=== PATIENT | female | born 1940 | race Caucasian/White ===

== ENCOUNTER → 2017-12-24 15:35 | Outpatient (CLI) | payer MEDICARE, SELFPAY ==
[2017-12-24 15:57] LABS: Absolute Basophil Count 0.01 k/cumm (0.0-0.2); Absolute Eosinophil Count 0.04 k/cumm (0.0-0.7); Absolute Lymphocyte Count 1.45 k/cumm (1.2-3.4); Absolute Monocyte Count 0.61 k/cumm (0.11-0.7); Absolute Neutrophil Count 1.46 k/cumm (1.2-6.7); Basophils % 0.3; Eosinophils % 1.1; HCT 37.6 % (36.0-46.0); HGB 12.5 g/dL (12.0-15.5); Lymphocytes % 40.6; Mean Corp. HGB Concentration 33.2 g/dL (32.0-36.0); Mean Corpuscular Hemoglobin 29.3 pg (27.0-33.0); Mean Corpuscular Volume 88.3 fL (80-95); Mean Platelet Volume 8.5 fL (8.0-11.0); Monocytes % 17.1; Neutrophils % 40.9; Platelet Count 268 x1000/uL (130-400); RBC 4.26 m/cumm (4.00-5.20); RBC Distribution Width 13.5 % (11.7-14.6); White Blood Cell Count 3.57 k/cumm (4.4-10.8)
== END ==
PROVIDERS: PCP Family Medicine; Visit Provider Internal Medicine Hematology & Oncology
DX: D70.9 Neutropenia, unspecified (principal)
CPT/HCPCS: 36415; 85025

== ENCOUNTER 2018-03-19 13:40 | Outpatient (CLI) | payer MEDICARE, SELFPAY ==
[2018-03-19 14:13] LABS: HCT 38.8 % (36.0-46.0); HGB 12.7 g/dL (12.0-15.5); Mean Corp. HGB Concentration 32.7 g/dL (32.0-36.0); Mean Corpuscular Hemoglobin 29.2 pg (27.0-33.0); Mean Corpuscular Volume 89.2 fL (80-95); Mean Platelet Volume 8.4 fL (8.0-11.0); Platelet Count 233 x1000/uL (130-400); RBC 4.35 m/cumm (4.00-5.20); RBC Distribution Width 14.7 % (11.7-14.6); White Blood Cell Count 4.12 k/cumm (4.4-10.8)
[2018-03-19 14:53] LABS: Absolute Eosinophil Count 0.04 k/cumm (0.0-0.7); Absolute Lymphocyte Count 3.34 k/cumm (1.2-3.4); Absolute Monocyte Count 0.45 k/cumm (0.11-0.7); Atypical Lymphocytes % 6
[2018-03-19 14:54] LABS: Diff Comment Manual Differential; RBC Morphology Normal
[2018-03-19 14:58] LABS: Absolute Neutrophil Count 0.29 k/cumm (1.2-6.7)
== END 2018-03-19 14:00 ==
PROVIDERS: PCP Family Medicine; Visit Provider Internal Medicine Hematology & Oncology
DX: D70.9 Neutropenia, unspecified (principal)
CPT/HCPCS: 36415; 85025

== ENCOUNTER 2018-05-15 12:09 | Outpatient (CLI) | payer MEDICARE, SELFPAY ==
[2018-05-15 12:32] LABS: HCT 40.3 % (36.0-46.0); HGB 13.2 g/dL (12.0-15.5); Mean Corp. HGB Concentration 32.8 g/dL (32.0-36.0); Mean Corpuscular Hemoglobin 29.1 pg (27.0-33.0); Mean Corpuscular Volume 88.8 fL (80-95); Mean Platelet Volume 8.4 fL (8.0-11.0); Platelet Count 265 x1000/uL (130-400); RBC 4.54 m/cumm (4.00-5.20); RBC Distribution Width 14.6 % (11.7-14.6); White Blood Cell Count 2.98 k/cumm (4.4-10.8)
[2018-05-15 13:03] LABS: Absolute Basophil Count 0.06 k/cumm (0.0-0.2); Absolute Eosinophil Count 0.09 k/cumm (0.0-0.7); Absolute Lymphocyte Count 2.41 k/cumm (1.2-3.4); Absolute Monocyte Count 0.33 k/cumm (0.11-0.7); Atypical Lymphocytes % 25
[2018-05-15 13:04] LABS: Diff Comment Manual Differential; RBC Morphology Normal
[2018-05-15 13:08] LABS: Absolute Neutrophil Count 0.09 k/cumm (1.2-6.7)
[2018-05-16 13:04] LABS: CEA <0.5 ng/ml
== END 2018-05-15 12:29 ==
PROVIDERS: Internal Medicine Hematology & Oncology; PCP Family Medicine; Visit Provider Family Medicine
DX: D70.9 Neutropenia, unspecified (principal); C18.9 Malignant neoplasm of colon, unspecified
CPT/HCPCS: 36415; 82378; 85025

== ENCOUNTER 2018-09-08 00:28 | Outpatient (CLI) | payer MEDICARE, SELFPAY ==
--- NOTE | 2018-09-08 11:30 | DI.MAMMO_ITS ---
SYMPTOM/DIAGNOSIS: SCREENING, Z12.31 MAMMOGRAMS: Mammograms were interpreted according to the usual protocol including computer analysis with CAD system, tomosynthesis and C view imaging. Comparison is made with prior examinations. Breast density, category B. No suspicious masses or microcalcifications are seen. There is no definite evidence of malignancy. IMPRESSION: Negative mammogram. Routine screening is recommended. Category 1. MQSA ASSESSMENT OF FINDINGS: Negative. Category 1. Patient will receive a letter notifying them of these results. BI-RADS category B. There are scattered areas of fibroglandular density.
== END 2018-09-08 00:48 ==
PROVIDERS: PCP Family Medicine; Visit Provider Obstetrics & Gynecology Gynecology
DX: Z12.31 Encounter for screening mammogram for malignant neoplasm of breast (principal)
CPT/HCPCS: 77063; 77067

== ENCOUNTER 2018-10-28 15:16 | Outpatient (CLI) | payer MEDICARE, SELFPAY ==
[2018-10-28 15:49] LABS: HCT 40.2 % (36.0-46.0); HGB 13.1 g/dL (12.0-15.5); Mean Corp. HGB Concentration 32.6 g/dL (32.0-36.0); Mean Corpuscular Hemoglobin 29.2 pg (27.0-33.0); Mean Corpuscular Volume 89.7 fL (80-95); Mean Platelet Volume 8.6 fL (8.0-11.0); Platelet Count 235 x1000/uL (130-400); RBC 4.48 m/cumm (4.00-5.20); RBC Distribution Width 14.8 % (11.7-14.6); White Blood Cell Count 3.23 k/cumm (4.4-10.8)
[2018-10-28 17:08] LABS: Absolute Basophil Count 0.13 k/cumm (0.0-0.2); Absolute Eosinophil Count 0.13 k/cumm (0.0-0.7); Absolute Lymphocyte Count 2.49 k/cumm (1.2-3.4); Absolute Monocyte Count 0.29 k/cumm (0.11-0.7); Atypical Lymphocytes % 6
[2018-10-28 17:09] LABS: Diff Comment Manual Differential; RBC Morphology Normal
[2018-10-28 17:23] LABS: Absolute Neutrophil Count 0.19 k/cumm (1.2-6.7)
[2018-10-30 09:46] LABS: CEA 0.9 ng/ml
== END 2018-10-28 15:36 ==
PROVIDERS: PCP Family Medicine; Visit Provider Family Medicine
DX: C18.9 Malignant neoplasm of colon, unspecified (principal); D70.9 Neutropenia, unspecified
CPT/HCPCS: 36415; 82378; 85025

== ENCOUNTER 2019-04-15 11:16 | Outpatient (CLI) | payer MEDICARE, SELFPAY ==
[2019-04-15 11:36] LABS: Absolute Basophil Count 0.03 k/cumm (0.0-0.2); Absolute Eosinophil Count 0.14 k/cumm (0.0-0.7); Absolute Monocyte Count 0.66 k/cumm (0.11-0.7); Basophils % 0.9; Eosinophils % 4.1; HCT 40.6 % (36.0-46.0); HGB 13.3 g/dL (12.0-15.5); Lymphocytes % 66.9; Mean Corp. HGB Concentration 32.8 g/dL (32.0-36.0); Mean Corpuscular Hemoglobin 29.3 pg (27.0-33.0); Mean Corpuscular Volume 89.4 fL (80-95); Mean Platelet Volume 8.4 fL (8.0-11.0); Monocytes % 19.2; Neutrophils % 8.9; Platelet Count 311 x1000/uL (130-400); RBC 4.54 m/cumm (4.00-5.20)
[2019-04-15 12:34] LABS: White Blood Cell Count 3.44 k/cumm (4.4-10.8)
[2019-04-15 12:36] LABS: Absolute Neutrophil Count 0.31 k/cumm (1.2-6.7); Diff Comment Diff Reviewed; RBC Morphology Normal
== END 2019-04-15 11:36 ==
PROVIDERS: PCP Family Medicine; Visit Provider Internal Medicine Hematology & Oncology
DX: D70.9 Neutropenia, unspecified (principal)
CPT/HCPCS: 36415; 85025

== ENCOUNTER 2019-05-08 12:47 | Outpatient (REF) | payer MEDICARE, SELFPAY ==
[2019-05-08 19:23] LABS: Anion Gap 8.3 mmol/L (3-11); BUN 24 mg/dL (7-18); CO2 27.7 mmol/L (21.0-32.0); CREATININE 0.91 mg/dL (0.55-1.02); Calcium 9.2 mg/dL (8.5-10.1); Chloride 105 mmol/L (98-107); Glucose 90 mg/dL (74-106); Potassium 4.1 mmol/L (3.5-5.1); Sodium 141 mmol/L (136-145)
[2019-05-11 11:46] LABS: CEA 1.1 ng/mL (See Note)
== END 2019-05-08 13:07 ==
LOC: NCHCN 12:47
PROVIDERS: PCP Family Medicine; Visit Provider Family Medicine
DX: E03.9 Hypothyroidism, unspecified (principal); Z85.038 Personal history of other malignant neoplasm of large intestine
CPT/HCPCS: 80048; 82378; 84443

== ENCOUNTER 2019-08-30 11:36 | Inpatient (IN) | payer MEDICARE, SELFPAY ==
[2019-08-30] VITALS (8 sets, daily range): BP systolic 111–149; BP diastolic 62–83; PULSE 70–84; RESP 16–19; TEMP 36.2–36.8; O2SAT 92–97
--- NOTE | 2019-08-30 11:45 | DI.CT_ITS ---
EXAM: CT CHEST PE CTA CLINICAL HISTORY: Chest pain TECHNIQUE: Axial CT angiography was performed with multi-slice acquisition and multi-planar and/or 3 D reconstructions. COMPARISON: No exams were available for comparison FINDINGS: CT angiography of the chest was performed with a bolus infusion of 70 cc of Omnipaque 350. Images ob tained through the upper abdomen show unremarkable appearance of visualized portions of liver, spleen , pancreas, adrenals, and kidneys. There is no mediastinal or hilar adenopathy. There is no evidence of pulmonary embolic disease. Tho racic aorta appears intact with no aneurysm or dissection. The lungs are predominantly clear with pr esumed small areas of bibasilar dependent atelectasis. A 6 millimeter lingular nodule is noted, foll ow-up chest CT suggested in 12 months. No evidence of acute consolidation. No pleural effusion or p neumothorax. IMPRESSION: No evidence of pulmonary embolic disease. No evidence of acute consolidation.
--- NOTE | 2019-08-30 11:48 | W.ED.GENAD ---
Discharge Plan Disposition Patient Disposition: [facility] INPATIENT Condition: Stable Discharge Details Chief Complaint: Chest Pain Clinical Impression: Chest pain Primary Care Provider: Nimo Burk V ED Provider: Adrienne Quintero Home Meds and New Rx's Prescriptions: Continued estradiol 10 mcg insert 10 mcg VG .twice weekly Qty: 24 RF: 4 fiber RF: 0 levalbuterol tartrate [Xopenex HFA] 15 GM HFA aerosol inhaler 15 gm Inhalation PRN RF: 0 cholecalciferol (vitamin D3) [Vitamin D3] 2,000 UNIT capsule 2,000 unit PO BID RF: 0 bupropion HCl 150 MG tablet extended release 12 hr 150 mg PO BID RF: 0 trazodone 50 MG tablet 50 mg PO HS RF: 0 fexofenadine 60 MG tablet 60 mg PO HS RF: 0 aspirin [Aspir-81] 81 MG tablet,delayed release (DR/EC) 81 mg PO DAILY RF: 0 calcium carbonate [Calcium 500] 500 MG tablet 500 mg PO DAILY AM RF: 0 PreserVision AREDS 1 TAB tablet 1 tab PO BID RF: 0 nitroglycerin [Nitrostat] 0.4 mg Tablet, Sublingual 0.4 mg PRNRF: 0 Medical Decision Making 79-year-old female presents with left-sided chest pain which is been intermittent for the last 4 to 5 days. She reports this radiates into her left shoulder. She was recently prescribed nitroglycerin which he took prior to arrival. She states that this did help her. She does have a history of colon cancer, asthma, she does take aspirin 81 mg p.o. daily at bedtime. Denies nausea vomiting diarrhea, fever chills. 1152: EKG reviewed by Dr. Holly PEREZ shows normal sinus rhythm no ST elevation or depression no ectopy. Was an old EKG reviewed for reviewed no significant change. Critical lab value received by lab with absolute neutrophil count of 0.27 which is not new for patient patient has had a low absolute neutrophil count since March 2018. Nitroglycerin 0.4mg SL x 3 brought pain down from 4 to 2/10. HEART score is 3 or 4 which is low- to moderate risk. Discussed options with patient for outpatient stress test versus admission for observation. Patient is not opposed to admission at this time. i will contact hospitalist after repeat Troponin. FINDINGS: Pulmonary arteries: No evidence of pulmonary embolus to the segmental level. Aorta: No aneurysm of the aorta. No dissection of the aorta. Lungs: 6 mm nodule in the lingula. Bibasilar atelectasis Pleural space: Unremarkable. No pneumothorax. No pleural effusion. Heart: Unremarkable. No cardiomegaly. No pericardial effusion. Lymph nodes: Unremarkable. No enlarged lymph nodes. Bones/joints: Sclerosis in the proximal left humerus was present in 2013 Soft tissues: Unremarkable. IMPRESSION: 1. No evidence of pulmonary embolus to the segmental level. 2. No aneurysm of the aorta. 3. No dissection of the aorta. 4. 6 mm nodule in the lingula. Thank you for allowing us to participate in the care of your patient. 1511: Second troponin is negative will page hospitalist for possible admission for observation. 1516: Spoke with Dr. Campuzano and discussed details of patient case, who agrees to admit patient for observation and attempt cardiac stress test tomorrow. Discussed plan with patient who agrees to plan. HPI General Mode of arrival: ambulatory. Date/Time Provider Initiated Documentation: 08/30/19 11:39. Limitations to Documentation: no limitations. Information obtained by: patient. HPI Narrative: 79-year-old female presents with left-sided chest pain which is been intermittent for the last 4 to 5 days. She reports this radiates into her left shoulder. She was recently prescribed nitroglycerin which she took prior to arrival. She states that this did help her. She does have a history of colon cancer, asthma, she does take aspirin 81 mg p.o. daily at bedtime. Denies nausea vomiting diarrhea, fever chills. Related Data Home Medications Medication Instructions Recorded Confirmed PreserVision AREDS 1 tab PO BID 06/07/13 08/30/19 aspirin [Aspir-81] 81 mg PO DAILY 06/07/13 08/22/18 bupropion HCl 150 mg PO BID 06/07/13 08/30/19 calcium carbonate [Calcium 500] 500 mg PO DAILY AM 06/07/13 08/30/19 fexofenadine 60 mg PO HS 06/07/13 08/30/19 trazodone 50 mg PO HS 06/07/13 08/30/19 Fiber 12/28/14 08/22/18 cholecalciferol (vitamin D3) 2,000 unit PO BID 06/12/17 08/30/19 [Vitamin D3] levalbuterol tartrate [Xopenex HFA] 15 gm INHALATION PRN inhaler 06/12/17 08/30/19 estradiol 10 mcg vaginal insert 10 mcg VG .twice weekly #24 insert 08/24/18 08/30/19 nitroglycerin [Nitrostat] 0.4 mg PRN 08/30/19 Previous Rx's Medication Instructions Recorded estradiol 10 mcg vaginal insert 10 mcg VG .twice weekly #24 insert 08/24/18 Allergies Allergy/AdvReac Type Severity Reaction Status Date / Time Penicillins Allergy Severe swelling Unverified 08/30/19 12:53 Sulfa (Sulfonamide Allergy Unknown Unverified 08/30/19 12:53 Antibiotics) diazepam [From Valium] AdvReac Severe it sent me Unverified 08/30/19 12:53 on a trip propoxyphene HCl AdvReac Severe sent me on Unverified 08/30/19 12:53 [From [place]] a trip General Stated Complaint: Chest Pain MELISSA: 2 Review of Systems Narrative: Constitutional: Negative for weight loss, alert and oriented, well groomed, normal body habitus, appears comfortable. HEENT: Denies trauma, headaches, blurry vision, nasal discharge, sore throat, trouble swallowing. Chest: Denies palpitations, irregular rhythm, hypertension. Positive left-sided chest pain which radiates into her shoulder and back. Intermittent for the last several weeks worse the last 4 to 5 days. Respiratory: Denies Shortness of breath, hemoptysis. Reports chronic cough from asthma. GI: Denies abdominal pain, nausea, vomiting, diarrhea, constipation. : Denies dysuria, hematuria, flank pain, rectal bleeding. Neuro: Denies dizziness, blurry vision, weakness, syncope, headache or facial numbness. Hematologic: Denies easy bruising, intolerance to heat or cold, hair loss. [facility] Medical History Colon cancer (Inactive) Leukocytosis (Chronic) Macular degeneration (Chronic) Surgical History back surgery (Resolved) continues with lumbar pain. Is considering another steroid inj. 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 Colectomy (Resolved) 07/2014. Discovered on colonoscopy. eye surgery (Resolved) cataract repair History of cataract surgery (Resolved) macular degeneration eye surgery (Resolved) Total replacement of hip (Resolved) Right. 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 Appears stated age. Normal body habitus. Head: Normocephalic, no trauma. Eyes: Pupils PERRLA, Red reflex noted, EOM's intact. Eyelids symmetrical without lesions, discharge, or swelling. ENT: Bilateral TM's WNL, External ear normal to inspection, no mastoid TTP, swelling, or erythema, Nasal turbinates WNL, no nasal discharge. Normal dentition, Posterior pharynx WNL, no exudate. Chest: RRR, Normal S1, S2, distal pulses intact. Resp: Lungs clear to auscultation bilaterally, no wheezes, rales, or rhonchi. Musculoskeletal: Normal gait, 5/5 strength to all four extremities. Skin: No suspicious rashes or lesions. Capillary refill less than 2 sec. Neurologic: Cranial nerves II-XII intact. Alert and oriented x 3. DTR's intact. Hematologic/Lymphatic: No ecchymosis, no lymphadenopathy. Course Vital Signs Vital signs: Vital Signs Temperature 36.8 C 08/30/19 11:45 Pulse 84 08/30/19 11:45 Respiratory Rate 08/30/19 11:45 Blood Pressure 149/83 H 08/30/19 11:45 Pulse Oximetry 95 08/30/19 11:45 Temperature 36.8 C 08/30/19 11:45 Pulse 84 08/30/19 11:45 Respiratory Rate 08/30/19 11:45 Respiratory Effort 08/30/19 11:44 Blood Pressure 149/83 H 08/30/19 11:45 Blood Pressure Position Sitting 08/30/19 11:45 Pulse Oximetry 95 08/30/19 11:45 Oxygen Delivery Method Room Air 08/30/19 11:45 Oxygen Flow Rate 0 08/30/19 11:45 Pain Level 5 08/30/19 11:40
[2019-08-30] MEDS: Aspirin 81 MG CHEW 324 MG CH (12:00)
[2019-08-30 12:08] LABS: HCT 40.4 % (36.0-46.0); HGB 13.2 g/dL (12.0-15.5); Mean Corp. HGB Concentration 32.7 g/dL (32.0-36.0); Mean Corpuscular Hemoglobin 28.5 pg (27.0-33.0); Mean Corpuscular Volume 87.3 fL (80-95); Mean Platelet Volume 8.4 fL (8.0-11.0); Platelet Count 270 x1000/uL (130-400); RBC 4.63 m/cumm (4.00-5.20); RBC Distribution Width 14.3 % (11.7-14.6); White Blood Cell Count 3.04 k/cumm (4.4-10.8)
[2019-08-30 12:19] LABS: Absolute Basophil Count 0.09 k/cumm (0.0-0.2); Absolute Eosinophil Count 0.12 k/cumm (0.0-0.7); Absolute Lymphocyte Count 1.95 k/cumm (1.2-3.4); Absolute Monocyte Count 0.61 k/cumm (0.11-0.7); Atypical Lymphocytes % 5
[2019-08-30 12:20] LABS: Diff Comment Manual Differential
[2019-08-30 12:22] LABS: Poikilocytes 1+
[2019-08-30 12:23] LABS: Absolute Neutrophil Count 0.27 k/cumm (1.2-6.7)
[2019-08-30 12:34] LABS: ALT 31 U/L (14-59); AST 26 U/L (15-37); Albumin 3.5 g/dL (3.4-5.0); Alkaline Phosphatase 80 U/L (46-116); Anion Gap 8.3 mmol/L (3-11); BUN 20 mg/dL (7-18); Bilirubin, Total 0.4 mg/dL (0.2-1.0); CO2 27.7 mmol/L (21.0-32.0); Calcium 9.5 mg/dL (8.5-10.1); Chloride 106 mmol/L (98-107); Estimated GFR 48.16 (mL/min/1.73m2); Glucose 101 mg/dL (74-106); Magnesium 2.2 mg/dL (1.8-2.4); NT-proBNP 60 pg/mL (<300); Sodium 142 mmol/L (136-145); Total Protein 6.4 g/dL (6.4-8.2)
[2019-08-30 12:35] LABS: Troponin I < 0.05 ng/Ml (<0.06)
[2019-08-30] MEDS: Normal Saline 1,000 ML 1000 ML IV (12:49)
[2019-08-30] MEDS: Omnipaque 350 MG/ML 100 ML BTL IJ (13:00)
[2019-08-30] MEDS: Normal Saline - Diluent 50 ML VIAL IV (13:00)
--- NOTE | 2019-08-30 13:44 | DI.VRAD_ITS ---
PROCEDURE INFORMATION: Exam: CT Angiography Chest With Contrast Exam date and time: 08/30/2019 11:59 AM Age: 79 years old Clinical indication: Chest pain TECHNIQUE: Imaging protocol: Computed tomographic angiography of the chest with intravenous contrast. 3D rendering: MIP and/or 3D reconstructed images were created by the technologist. Contrast material: OMNIPAQUE 350; Contrast volume: 70 ml; Contrast route: 18G RAC; COMPARISON: CR RIGHT RIBS TO INCLUDE CXR 06/06/2013 11:41 PM FINDINGS: Pulmonary arteries: No evidence of pulmonary embolus to the segmental level. Aorta: No aneurysm of the aorta. No dissection of the aorta. Lungs: 6 mm nodule in the lingula. Bibasilar atelectasis Pleural space: Unremarkable. No pneumothorax. No pleural effusion. Heart: Unremarkable. No cardiomegaly. No pericardial effusion. Lymph nodes: Unremarkable. No enlarged lymph nodes. Bones/joints: Sclerosis in the proximal left humerus was present in 2013 Soft tissues: Unremarkable. IMPRESSION: 1. No evidence of pulmonary embolus to the segmental level. 2. No aneurysm of the aorta. 3. No dissection of the aorta. 4. 6 mm nodule in the lingula. Dictated and Authenticated by: Hamilton Diaz MD. Ordering:LAURA Deleon MD
[2019-08-30 15:07] LABS: Troponin I < 0.05 ng/Ml (<0.06)
--- NOTE | 2019-08-30 16:35 | W.PM.HP.N ---
Date of service: 08/30/19 Time of Service: 16:35 Assessment and Plan Assessment and plan (1) Chest pain: Status: Acute Assessment and plan: Substernal chest pain radiating to the left arm is suspicious for possible angina. Troponins are negative x2. She has no history of coronary artery disease, negative MPI 01/12/2010. Risk factors primarily are positive family history and remote tobacco use history. Low risk for acute AR. We will set up MPI testing for possible myocardium at risk. She received aspirin in the emergency room. She is on aspirin 81 mg daily. (2) Lymphocytosis: Status: Acute Assessment and plan: Patient has a chronic lymphocytosis dating back to 2018. (3) Neutropenia: Status: Acute Assessment and plan: Patient has been neutropenic with an absolute neutrophil count as low as 90 in 2018. Her current neutrophil count is 270. I can see where she has had this worked up in the past. She has had colon cancer, status post hemicolectomy. CEA levels have normalized. Hematology will be consulted. (4) Colon cancer: Status: Inactive Assessment and plan: Remote history of a colon cancer found on colonoscopy. Status post hemicolectomy. Follow-up surveillance has been negative. (5) Lung nodule seen on imaging study: Status: Acute Assessment and plan: 6 mm lung nodule seen on chest CT in the emergency room. Further follow-up as an outpatient. (6) Discharge planning issues: Status: Acute Assessment and plan: Patient is admitted to observation status. She has an advanced directive which states that she would consider full resuscitative efforts but would not want to be on a ventilator for prolonged period of time. We will consider her a full code. History of Present Illness History of Present Illness Chief Complaint: Chest pain rule out AR Narrative: This is a 79-year-old female who has had intermittent chest pain for a few weeks now. She describes left-sided chest pain that has been intermittent with increasing frequency in the last for 5 days. The pain radiates to her left shoulder. She spoke with her primary care provider, Dr. Nimo Larry, who prescribed nitro sublingual which she has tried on a few occasions. She gets some relief from the nitro. In the emergency room she received a total of 3 sublingual nitroglycerin with near complete resolution of her chest pain, 06/22. Troponins x2 in the emergency room are less than 0.05. Her EKG showed no acute ST to T changes. Cardiac risk factors include positive family history, remote tobacco. She is admitted to [facility] on telemetry in observation for further rule out of AR and follow-up cardiac stress testing. Previous MPI 01/12/2010- for ischemia EF 76% Review of Systems Narrative: Generally active with gardening and working around her home. She has been limited by some shortness of breath lately. She has been anxious and concerned about the coronavirus crisis. She has been anxious about family matters. No recent trauma. She had an eye exam in the beginning of July in [place] and has not traveled from her home since that time. She has a chronic cough that is unchanged. She has not had fevers. [facility] Medical History (Updated 08/30/19 @ 17:02 by Jairo Campuzano MD) Colon cancer (Inactive) Lymphocytosis (Acute) Macular degeneration (Chronic) Surgical History back surgery (Resolved) continues with lumbar pain. Is considering another steroid inj. 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 Colectomy (Resolved) 07/2014. Discovered on colonoscopy. eye surgery (Resolved) cataract repair History of cataract surgery (Resolved) macular degeneration eye surgery (Resolved) Total replacement of hip (Resolved) Right. 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 Meds Home Medications and Allergies Home Medications Medication Instructions Recorded Confirmed Type PreserVision AREDS 1 tab PO BID 06/07/13 08/30/19 History aspirin [Aspir-81] 81 mg PO DAILY 06/07/13 08/22/18 History bupropion HCl 150 mg PO BID 06/07/13 08/22/18 History calcium carbonate [Calcium 500] 500 mg PO DAILY AM 06/07/13 08/30/19 History fexofenadine 60 mg PO HS 06/07/13 08/30/19 History trazodone 50 mg PO HS 06/07/13 08/30/19 History Fiber 12/28/14 08/22/18 History cholecalciferol (vitamin D3) 2,000 unit PO BID 06/12/17 08/30/19 History [Vitamin D3] levalbuterol tartrate [Xopenex HFA] 15 gm INHALATION PRN inhaler 06/12/17 08/30/19 History estradiol 10 mcg vaginal insert 10 mcg VG .twice weekly #24 insert 08/24/18 08/30/19 Rx nitroglycerin [Nitrostat] 0.4 mg PRN 08/30/19 History Allergies Allergy/AdvReac Type Severity Reaction Status Date / Time Penicillins Allergy Severe swelling Unverified 08/30/19 12:53 Sulfa (Sulfonamide Allergy Unknown Unverified 08/30/19 12:53 Antibiotics) diazepam [From Valium] AdvReac Severe it sent me Unverified 08/30/19 12:53 on a trip propoxyphene HCl AdvReac Severe sent me on Unverified 08/30/19 12:53 [From [place]] a trip Exam Narrative Exam Narrative: On exam she is sitting up in bed pleasant interactive and in no apparent distress. She is fully lucid and coherent. She has no respiratory difficulty. Her lung exam is completely clear to auscultation on the right and left. Heart sounds are regular. I do not detect a significant murmur. Abdomen is soft and nontender. Lower extremities show no evidence of edema. Neurologically there are no focal deficits. Results Imaging CT scan - chest: report reviewed (New 6 mm nodule seen in the lingula) EKG: report reviewed (No acute ST to T changes.) Labs Result diagrams: 08/30/19 11:55 08/30/19 11:55 Labs: Laboratory Results - last 24 hr 08/30/19 08/30/19 08/30/19 11:55 11:55 14:45 WBC 3.04 L RBC 4.63 Hgb 13.2 Hct 40.4 MCV 87.3 MCH 28.5 MCHC 32.7 RDW 14.3 Plt Count 270 MPV 8.4 Immature Gran % 0.0 Neutrophils % 9.0 Lymphocytes % 59.0 Atypical Lymphs % 5 Monocytes % 20.0 Eosinophils % 4.0 Basophils % 3.0 Absolute Neutrophils 0.27 L* Absolute Lymphocytes 1.95 Absolute Monocytes 0.61 Absolute Eosinophils 0.12 Absolute Basophils 0.09 Differential Comment Manual differential RBC Morphology See below Poikilocytosis 1+ Sodium 142 Potassium 4.0 Chloride 106 Carbon Dioxide 27.7 Anion Gap 8.3 BUN 20 H Creatinine 1.10 H Estimated GFR/1.73 m2 48.16 Glucose 101 Calcium 9.5 Magnesium 2.2 Total Bilirubin 0.4 AST 26 ALT 31 Alkaline Phosphatase 80 Troponin I < 0.05 < 0.05 NT-Pro-B Natriuret Pep 60 Total Protein 6.4 Albumin 3.5 Last Vital Signs Temp 36.6 C 08/30/19 16:10 Pulse 79 08/30/19 16:10 Resp 18 08/30/19 16:10 BP 147/81 H 08/30/19 16:10 Pulse Ox 97 08/30/19 16:10 COVID-19 Screening Traveled to [place] from one of the affected countries or regions?: NO Recent travel in the [place] within the last 8 weeks?: No Recent out of the country travel within the last 8 weeks?: No Exposure or possible exposure to illness during travel?: No Had IN PERSON contact w/suspected or confirmed C-19 person: No Have you had the following symptoms in the past few days?: No Symptoms noted since travel?: No Symptoms
[2019-08-30] MEDS: Enoxaparin 40 MG/0.4 ML SYR SC (17:22)
[2019-08-30 18:34] LABS: Troponin I < 0.05 ng/Ml (<0.06)
[2019-08-30] MEDS: buPROPion-CR 150 MG TABCR PO (19:39)
[2019-08-30] MEDS: traZODone 50 MG TAB PO (21:32)
[2019-08-31] VITALS (9 sets, daily range): BP systolic 105–143; BP diastolic 65–87; PULSE 60–90; RESP 18–21; TEMP 36.4–37.2; O2SAT 95–99
[2019-08-31 06:40] LABS: Absolute Basophil Count 0.01 k/cumm (0.0-0.2); Absolute Eosinophil Count 0.12 k/cumm (0.0-0.7); Absolute Lymphocyte Count 2.42 k/cumm (1.2-3.4); Absolute Monocyte Count 0.46 k/cumm (0.11-0.7); Basophils % 0.3; Eosinophils % 3.9; HGB 12.5 g/dL (12.0-15.5); Lymphocytes % 79.3; Mean Corp. HGB Concentration 32.9 g/dL (32.0-36.0); Mean Corpuscular Hemoglobin 28.7 pg (27.0-33.0); Mean Corpuscular Volume 87.4 fL (80-95); Mean Platelet Volume 8.6 fL (8.0-11.0); Monocytes % 15.1; Neutrophils % 1.4; Platelet Count 233 x1000/uL (130-400); RBC 4.35 m/cumm (4.00-5.20); White Blood Cell Count 3.05 k/cumm (4.4-10.8)
[2019-08-31 06:52] LABS: Anion Gap 8.8 mmol/L (3-11); BUN 16 mg/dL (7-18); CO2 26.2 mmol/L (21.0-32.0); CREATININE 1.07 mg/dL (0.55-1.02); Calcium 8.6 mg/dL (8.5-10.1); Chloride 108 mmol/L (98-107); Estimated GFR 49.72 (mL/min/1.73m2); Glucose 97 mg/dL (74-106); Potassium 3.8 mmol/L (3.5-5.1); Sodium 143 mmol/L (136-145)
[2019-08-31 07:19] LABS: Absolute Neutrophil Count 0.04 k/cumm (1.2-6.7)
[2019-08-31 07:22] LABS: Diff Comment Diff Reviewed; RBC Morphology Normal
[2019-08-31] MEDS: buPROPion-CR 150 MG TABCR PO (07:52)
--- NOTE | 2019-08-31 08:00 | DI.NM_ITS ---
APPROVED REPORT Exam: Pharmacologic Patient Location: In-Patient Room/Bed: 225 Stress Nurse: Tere Carlos RN BMI: 27.39 Baseline Rhythm: Sinus Rhythm Indications: Patient presented to the ER on 08/30/2019 with left sided chest pressure with radiation t o left arm. She reports she has had the chest pressure for the past 3 weeks and the left arm discomfo rt for the past few months. She was admitted to the M/S unit and her troponins have all been negative so far this admission. Medical History Medical History: Chronic lymphocytosis since 2018, colon cancer. Cardiac Medications: Aspirin. Allergies: Penicillin, Sulfonamide, Diazepam, Propoxyphene. Cardiac Risk Factors: FHX of CAD, Asthma Previous Cardiac Procedures: None Pretest Chest Pain Characteristics: Left sided chest pain (5/10) radiating to left upper arm. Exercise History: Physically active Physical Disabilities: None Lung Sounds: Clear to auscultation Heart Sounds: Regular Stress Test Details Test: Pharmacologic stress testing performed using 0.4 mg of regadenoson per 5 mL given IV over 10 s econds. Nuclear Acquisition: Rest Tc-99m/Stress Tc-99m 1 day Rest Isotope: Tc-99m Sestamibi. Dose: 10.6 Date: 08/31/2019 Injection Time: 1030 Stress Isotope: Tc-99m Sestamibi. Dose: 33.3 Date: 08/31/2019 Injection Time: 1240 HR Resting HR Supine: 65 bpm Max Heart Rate (APMHR): 143 bpm Target HR (85% APMHR): 121 bpm Max HR Achieved: 98 bpm % of APMHR: 68 BP Resting BP Supine: 150/82 mmHg Max BP: 154/80 mmHg ECG Resting ECG: Sinus Rhythm ST Change: No significant ST segment changes noted. Arrhythmia: None Recovery ECG: Sinus Rhythm Recovery ST Change: Normal Stress ECG Conclusion 1. This was a pharmacological stress test. The EKG portion of this exam showed no evidence of ischem ia. Stress Test Summary STAGE HR BP Symptoms NOTES Supine 65 150/82 3 min post Lexiscan injection 88 152/78 6 min post Lexiscan injection 75 154/80 MPI Conclusion The ejection fraction with stress was 85%. There were no wall motion abnormalities. There is no evidence of inducible ischemia on the imaging portion of this exam. This represents a normal SPECT stress test.
--- NOTE | 2019-08-31 11:36 | PDOC.CMIN ---
- If Service Date Differs Date of service: 08/31/19 Time of Service: 11:36 Care Management Initial Assess REASON FOR HOSPITALIZATION:: Chest Pain PAST MEDICAL HISTORY/PAST SURGICAL HISTORY:: Medical History (Updated 08/30/19 @ 17:02 by Jairo Campuzano MD). Colon cancer (Inactive). Lymphocytosis (Acute). Macular degeneration (Chronic). Surgical History . back surgery (Resolved). continues with lumbar pain. Is considering another steroid inj. section (Resolved). Hysterectomy at time of for placenta accreta. Colectomy (Resolved). 07/2014. Discovered on colonoscopy. eye surgery (Resolved). cataract repair. History of cataract surgery (Resolved). macular degeneration eye surgery (Resolved). Total replacement of hip (Resolved). Right. PREVIOUS FUNCTIONAL STATUS/SOCIAL/FAMILY SUPPORTS:: Raeann lives in a single family home in [place] with her Gonzalez. They have 3 children and 6 grandchildren, all out of state. Raeann is independent at baseline and does not receive any community services. 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 CURRENT FUNCTIONAL STATUS:: Raeann was sitting up in bed when CM met with her. She expressed concern about what they found in my lung. She stated that she is less concerned about the chest pain which brought her to the hospital. She is scheduled to have a stress test today and hopes to be discharged later today. ADVANCE DIRECTIVES:: Has a blank copy at home which she intends to complete Has patient been provided with information about the portal?: No Did the patient sign up for the portal?: No CODE STATUS:: Full Code INSURANCE COVERAGE / FINANCIAL ISSUES:: Medicare. [employer] CURRENT HOME/COMMUNITY SERVICES/EQUIPMENT:: none PRIMARY CARE PHYSICIAN:: Nimo Burk POTENTIAL DISCHARGE NEEDS:: Follow up with PCP and discharge plan of care PATIENT/FAMILY EDUCATION NEEDS:: Discharge plan, limitations, follow up plan, Ask Me Three TRANSPORTATION:: via private vehicle with spouse PLAN:: Raeann will likely return home with no new services. She will follow up with her PCP and dicharge plan of care. She will transport via private vehicle with her .
[2019-08-31] MEDS: Regadenoson 0.4 MG/5 ML SYR IVP (13:40)
--- NOTE | 2019-08-31 15:15 | CHAPLAIN ---
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 Raeann came in yesterday with chest pressure. She had spoken with Dr. Campuzano and Dr. Barrett, who are both neighbors of hers, who suggested she come to the ED. When I visited with Raeann this morning, she was waiting for further testing, but had also fund out that a spot had been found on her lung xray. Raeann said she has several relatives who have quickly from cardiac events, and also relatives who have from lung cancer, so she is concerned and waiting to have tests and analyze results is difficult and she said she will feel better when she knows what's going on and she has a plan. Raeann is Mormon, but not actively involved with the local christianity. Raeann's Emmanuel is an district attorney in town. They have three adult children and several grandchildren who live elsewhere. I'll check in with Raeann tomorrow if she is still here.
[2019-08-31] MEDS: Normal Saline Flush 10 ML SYR IVP (15:25)
--- NOTE | 2019-08-31 16:23 | DSE_ITS ---
Date of service: 08/31/19 Time of Service: 16:23 DS: Diagnosis Discharge Diagnosis (1) Chest pain: Status: Acute Asessment and Plan: Ruled out for CA by serial enzymes. MPI on 08/31/2019 was normal (2) Neutropenia: Status: Inactive Asessment and Plan: Chronic benign neutropenia. Requires Neupogen for invasive procedures and dental work. Confirmed with Dr. Beltran's office on 08/31/2019. ANC equal 40. (3) Colon cancer: Status: Inactive Asessment and Plan: Surveillance has been clear. (4) Lung nodule seen on imaging study: Status: Acute Asessment and Plan: Patient has a 6 mm lung nodule seen by CT scan within the lingula. Radiology recommended 12-month follow-up CT of the chest. Discharge Plan Disposition Patient Disposition: HOME Condition: Stable Discharge Details Chief Complaint: Chest Pain Clinical Impression: Chest pain Reason For Visit: CHEST PAIN Admit Date/Time: 08/30/19 15:18 Admit Provider: Jairo Campuzano Attending Provider: Jairo Campuzano Primary Care Provider: Nimo Burk V ED Provider: [facility] Course Hospital Course: This is a 79-year-old woman that presented with substernal chest pain radiating to her left arm. Her pain was relieved with sublingual nitroglycerin. Her initial EKG showed no abnormality. She had serial troponins x3 that were less than 0.05. She was monitored on telemetry without any abnormal rhythm detected. She continued to have mild chest pain 1-2 out of 3. During the overnight hours she had 1 more flareup that again responded to sublingual nitro. On the day of discharge she had a myocardial perfusion imaging study done via [facility]isc[facility]. This study showed no evidence of reversible ischemia, normal MPI. Given the lack of evidence of acute coronary artery disease it is presumed that there may be a component of gastro esophageal reflux disease. She is willing to give a trial of an acid levar for the next 6 weeks to see if she has some improvement in her symptoms. The patient has been on chronic low-dose aspirin therapy which could exacerbate her symptoms. Home Meds and New Rx's Prescriptions: New omeprazole 20 mg capsule,delayed release(DR/EC) 20 mg PO DAILY Qty: 30 RF: 1 Continued estradiol 10 mcg insert 10 mcg VG .twice weekly Qty: 24 RF: 4 fiber RF: 0 levalbuterol tartrate [Xopenex HFA] 15 GM HFA aerosol inhaler 15 gm Inhalation PRN RF: 0 cholecalciferol (vitamin D3) [Vitamin D3] 2,000 UNIT capsule 2,000 unit PO BID RF: 0 bupropion HCl 150 MG tablet extended release 12 hr 150 mg PO BID RF: 0 trazodone 50 MG tablet 50 mg PO HS RF: 0 fexofenadine 60 MG tablet 60 mg PO HS RF: 0 aspirin [Aspir-81] 81 MG tablet,delayed release (DR/EC) 81 mg PO DAILY RF: 0 calcium carbonate [Calcium 500] 500 MG tablet 500 mg PO DAILY AM RF: 0 PreserVision AREDS 1 TAB tablet 1 tab PO BID RF: 0 nitroglycerin [Nitrostat] 0.4 mg Tablet, Sublingual 0.4 mg PRNRF: 0 Discharge Instructions Instructions: Chest Pain (DC), Gastroesophageal Reflux Disease (DC) Stand Alone Forms: Nursing Discharge Form Activity:: Activity as Tolerated Equipment/Supplies:: No Equipment Needed Diet:: As Tolerated Discharge Orders Discharge Orders: Discharge Order (Routine); Ordered 08/31/19 Ordered By: Jairo Campuzano DS: Summary Status at Discharge Functional status at discharge: independent ambulation Overall status at discharge: patient is back to baseline Mental Status: mental status grossly normal Speech and Movement: speech and movement normal Mood: congruent mood Affect: normal affect Time Spent with Patient providing and/or coordinating discharge services: Greater than 30 minutes Exam Narrative Exam Narrative: On the day of discharge patient was looking and feeling fine. Her vital signs were stable. She had no respiratory discomfort. She still had residual chest discomfort of 1 out of 10. Psych Mental Status: mental status grossly normal Speech and Movement: speech and movement normal Mood: congruent mood Affect: normal affect DS: Data Vitals/I&O Vitals and I&O: Vital Signs Temperature 37.2 C 08/31/19 15:05 Temperature Source Tympanic 08/31/19 15:05 Pulse 90 08/31/19 15:05 Pulse Rhythm Regular 08/31/19 07:45 Respiratory Rate 21 08/31/19 15:05 Respiratory Effort 08/31/19 07:45 Respiratory Depth Normal 08/31/19 07:45 Respiratory Pattern Normal 08/31/19 07:45 Blood Pressure 131/80 08/31/19 15:05 Blood Pressure Position Sitting 08/30/19 11:45 Pulse Oximetry 99 08/31/19 15:05 Oxygen Delivery Method Room Air 08/31/19 15:05 Oxygen Flow Rate 0 08/31/19 15:05 Pain Level 0 08/31/19 15:05 Comment 08/31/19 06:24 Intake & Output 08/30/19 08/31/19 08/31/19 23:59 11:59 23:59 Intake Total 1999 100 / 100 Output Total 500 / 500 600 / 1100 500 / 1100 Balance 1500 / 1500 -500 / -1000 -500 / -1000 Weight 65.771 kg 68.1 kg Intake: IV 1999 Oral 100 / 100 Output: Urine 500 / 500 600 / 1100 500 / 1100 Other: Urine Color Yellow Yellow Yellow Urine Appearance Clear Clear Clear Urine Odor None None Voiding Methods Toilet Toilet Toilet Data Completed and Pending Labs on day of discharge: Labs from last 24 hours 08/31/19 08/31/19 08/30/19 06:30 06:30 18:05 WBC 3.05 L RBC 4.35 Hgb 12.5 Hct 38.0 MCV 87.4 MCH 28.7 MCHC 32.9 RDW 14.0 Plt Count 233 MPV 8.6 Immature Gran % 0.0 Neutrophils % 1.4 Lymphocytes % 79.3 Monocytes % 15.1 Eosinophils % 3.9 Basophils % 0.3 Absolute Neutrophils 0.04 L* Absolute Lymphocytes 2.42 Absolute Monocytes 0.46 Absolute Eosinophils 0.12 Absolute Basophils 0.01 Differential Comment Diff reviewed RBC Morphology Normal Sodium 143 Potassium 3.8 Chloride 108 H Carbon Dioxide 26.2 Anion Gap 8.8 BUN 16 Creatinine 1.07 H Estimated GFR/1.73 m2 49.72 Glucose 97 Calcium 8.6 Troponin I < 0.05 [facility] Medical History (Updated 08/31/19 @ 16:28 by Jairo Campuzano MD) Colon cancer (Inactive) GERD (gastroesophageal reflux disease) (Chronic) Macular degeneration (Chronic) Neutropenia (Inactive) Chronic benign neutropenia, Neupogen recommended prior to all invasive p rocedures and dental work Surgical History back surgery (Resolved) continues with lumbar pain. Is considering another steroid inj. 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 Colectomy (Resolved) 07/2014. Discovered on colonoscopy. eye surgery (Resolved) cataract repair History of cataract surgery (Resolved) macular degeneration eye surgery (Resolved) Total replacement of hip (Resolved) Right. 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
== END 2019-08-31 17:41 | disposition home or self-care (01) | DRG 313 ==
LOC: ER 15:17 → MS 15:58
PROVIDERS: Admitting Provider Family Medicine; Emergency Provider Registered Nurse Emergency; PCP Family Medicine; Visit Provider Family Medicine
DX: R07.89 Other chest pain (principal); D70.8 Other neutropenia; Z85.038 Personal history of other malignant neoplasm of large intestine; R91.1 Solitary pulmonary nodule; Z79.82 Long term (current) use of aspirin
CPT/HCPCS: 36415; 71275; 78452; 80048; 80053; 93005; 93016; 93018; 96361; 99217; 99219; 99285; J1650; 83735; 83880; 84484; 85025; 93010; 93017; 99222; 99238; J2785; J3490

== ENCOUNTER 2019-12-04 02:10 | Outpatient (CLI) | payer MEDICARE, SELFPAY ==
[2019-12-04 12:22] LABS: Absolute Basophil Count 0.02 k/cumm (0.0-0.2); Absolute Eosinophil Count 0.05 k/cumm (0.0-0.7); Absolute Lymphocyte Count 2.27 k/cumm (1.2-3.4); Absolute Monocyte Count 0.67 k/cumm (0.11-0.7); Absolute Neutrophil Count 0.52 k/cumm (1.2-6.7); Basophils % 0.6; Eosinophils % 1.4; HCT 39.8 % (36.0-46.0); Lymphocytes % 64.3; Mean Corp. HGB Concentration 32.7 g/dL (32.0-36.0); Mean Corpuscular Hemoglobin 28.1 pg (27.0-33.0); Mean Corpuscular Volume 86.1 fL (80-95); Mean Platelet Volume 8.5 fL (8.0-11.0); Neutrophils % 14.7; Platelet Count 348 x1000/uL (130-400); RBC 4.62 m/cumm (4.00-5.20); RBC Distribution Width 13.5 % (11.7-14.6); White Blood Cell Count 3.53 k/cumm (4.4-10.8)
[2019-12-04 13:05] LABS: Diff Comment Agrees w/ Instrument; RBC Morphology Normal
[2019-12-07 09:19] LABS: CEA 0.6 ng/mL (See Note)
== END 2019-12-04 02:30 ==
PROVIDERS: PCP Family Medicine; Referring Provider Internal Medicine Hematology & Oncology; Visit Provider Family Medicine
DX: D70.9 Neutropenia, unspecified (principal); C18.9 Malignant neoplasm of colon, unspecified
CPT/HCPCS: 36415; 82378; 85025

== ENCOUNTER 2020-04-03 22:04 | Emergency (ER) | payer MEDICARE, SELFPAY ==
[2020-04-03 22:10] VITALS: BP 180/115; PULSE 107; RESP 24; TEMP 36.8; O2SAT 98
--- NOTE | 2020-04-03 22:26 | ED.GENADUL_ITS ---
Discharge Plan Disposition Patient Disposition: HOME Condition: Stable Discharge Details Clinical Impression: Acute pain of left knee Primary Care Provider: Nimo Burk V ED Provider: Ramon Suarez Home Meds and New Rx's Prescriptions: Continued fiber RF: 0 levalbuterol tartrate [Xopenex HFA] 15 GM HFA aerosol inhaler 15 gm Inhalation PRN RF: 0 cholecalciferol (vitamin D3) [Vitamin D3] 2,000 UNIT capsule 2,000 unit PO BID RF: 0 bupropion HCl 150 MG tablet extended release 12 hr 150 mg PO BID RF: 0 trazodone 50 MG tablet 50 mg PO HS RF: 0 fexofenadine 60 MG tablet 60 mg PO HS RF: 0 aspirin [Aspir-81] 81 MG tablet,delayed release (DR/EC) 81 mg PO DAILY RF: 0 calcium carbonate [Calcium 500] 500 MG tablet 500 mg PO DAILY AM RF: 0 PreserVision AREDS 1 TAB tablet 1 tab PO BID RF: 0 nitroglycerin [Nitrostat] 0.4 mg Tablet, Sublingual 0.4 mg sublingual PRN PRNRF: 0 hydrocodone-acetaminophen [[place]] 5-325 mg tablet 1 tab PO PRN PRN (Reason: Pain) RF: 0 gabapentin 100 mg capsule 200 mg PO HS RF: 0 Discharge Instructions Instructions: Knee Pain (ED) Additional Instructions: Please take ibuprofen over the counter. Take 600mg by mouth every 6 hours as needed for pain. Use Douglas wrap. If pain persists, you will need to have additional diagnostic testing including knee joint aspiration. This procedure may require Neupogen injection. Please call tomorrow to discuss with your heme-onc specialist. Please call to schedule follow-up appointment with orthopedics. Please note that labs are pending at time of discharge as we discussed. Please be sure to follow-up with your doctor regarding these lab results. Return to the ER for any worsening or new concerning symptoms. Referrals: [facility] [Provider Group] Valentine Aiken MD [ NON-[facility] STAFF PHYSICIAN] - Nimo Burk MD [Primary Care Provider] - Medical Decision Making [id number]??79-year-old female with history of chronic neutropenia, low back pain, here with atraumatic pain and swelling right knee. Patient does not have significant effusion on exam. No warmth or erythema. Will obtain x-ray of the knee and treat with anti-inflammatory Toradol 30 mg IV. Consider infectious etiology. We will send screening labs CBC, ESR and CRP. --Labs hemolyzed and had to be redrawn. --X-ray of the knee was reviewed and interpreted by radiology: IMPRESSION: 1. Mild degenerative changes of the left knee. 2. Possible small suprapatellar effusion. Patient reassessed and did have some improvement in range of motion the knee. She does continue to have some pain. I am reluctant to perform knee aspiration given minimal effusion and need for Neupogen prior to invasive procedure. Patient agrees and plans to contact her heme-onc specialist and will follow up with orthopedics if pain persists tomorrow. Labs are still pending and patient does not wish to wait for results. She understands that diagnostic labs are still pending and that she should follow these up with her physician. An Douglas wrap was applied and she was encouraged to return should have any worsening or new concerning symptoms. HPI General Mode of arrival: wheelchair . Date/Time Provider Initiated Documentation: 04/03/20 22:06 . Limitations to Documentation: no limitations . Information obtained by: patient . HPI Narrative: 79-year-old female presents with chief complaint of left knee pain. Patient notes pain started this morning upon waking. She does not recall any specific injuries. Pain is persistent all day today and now worse. Pain is severe. She notes she is taking hydrocodone today which did not help. No associated fever or rash. No recent tick bites. Patient does note chronic history of neutropenia. She is not on any anticoagulants. Related Data Home Medications Medication Instructions Recorded Confirmed PreserVision AREDS 1 tab PO BID 06/07/13 04/03/20 aspirin [Aspir-81] 81 mg PO DAILY 06/07/13 04/03/20 bupropion HCl 150 mg PO BID 06/07/13 04/03/20 calcium carbonate [Calcium 500] 500 mg PO DAILY AM 06/07/13 04/03/20 fexofenadine 60 mg PO HS 06/07/13 04/03/20 trazodone 50 mg PO HS 06/07/13 04/03/20 Fiber 12/28/14 08/22/18 cholecalciferol (vitamin D3) 2,000 unit PO BID 06/12/17 04/03/20 [Vitamin D3] levalbuterol tartrate [Xopenex HFA] 15 gm INHALATION PRN inhaler 06/12/17 04/03/20 nitroglycerin [Nitrostat] 0.4 mg SUBLINGUAL PRN PRN 08/30/19 04/03/20 gabapentin 200 mg PO HS 04/03/20 04/03/20 hydrocodone-acetaminophen [[place]] 1 tab PO PRN PRN 04/03/20 04/03/20 Allergies Allergy/AdvReac Type Severity Reaction Status Date / Time Penicillins Allergy Severe swelling Unverified 04/03/20 22:15 Sulfa (Sulfonamide Allergy Unknown Unverified 04/03/20 22:15 Antibiotics) diazepam [From Valium] AdvReac Severe it sent me Unverified 04/03/20 22:15 on a trip propoxyphene HCl AdvReac Severe sent me on Unverified 04/03/20 22:15 [From [place]] a trip General Stated Complaint: Orthopedic MELISSA: 3 Review of Systems All systems reviewed & are unremarkable except as noted in HPI and below Constitutional Constitutional: Denies fever(s) Musculoskeletal Musculoskeletal: Reports as per HPI and Reports back pain (Chronic) [facility] Medical History Colon cancer GERD (gastroesophageal reflux disease) Macular degeneration Neutropenia Chronic benign neutropenia, Neupogen recommended prior to all invasive procedures and dental work Surgical History back surgery continues with lumbar pain. Is considering another steroid inj. 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 Colectomy 07/2014. Discovered on colonoscopy. eye surgery cataract repair History of cataract surgery macular degeneration eye surgery Total replacement of hip Right. 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 Exam Const General: cooperative and no acute distress HENMT Mouth: moist mucous membranes Eyes Conjunctivae: normal conjunctivae Sclera: normal sclerae Cardio Rate: regular rate and not tachycardic Rhythm: regular rhythm Skin General skin exam: no rashes or lesions noted Neuro General: patient alert, patient awake and tone normal Sensory Exam: no sensory deficits noted (Distal left lower extremity) Other: Distal left lower extremity motor intact Extrem General: no edema Left lower extremity: hip/thigh Details: no tenderness and no swelling, knee Details: tenderness Location: of the patella and of the medial joint line, swelling (Medial) and abnormal ROM Details: held in an abnormal fashion Details: in extension and pain with active ROM Details: with flexion; no ecchymosis and no unusual warmth and lower leg (Healing abrasion with surrounding ecchymosis, ant mid lower leg) Details: no erythema and no localized swelling Psych Appearance: grossly normal Mental Status: mental status grossly normal Course Vital Signs Vital signs: Vital Signs Temperature 36.8 C 04/03/20 22:10 Pulse 107 H 04/03/20 22:10 Respiratory Rate 24 04/03/20 22:10 Blood Pressure 180/115 H 04/03/20 22:10 Pulse Oximetry 98 04/03/20 22:10 Temperature 36.8 C 04/03/20 22:10 Temperature Source Skin 04/03/20 22:10 Pulse 107 H 04/03/20 22:10 Respiratory Rate 24 04/03/20 22:10 Respiratory Effort 04/03/20 22:21 Blood Pressure 180/115 H 04/03/20 22:10 Pulse Oximetry 98 04/03/20 22:10 Pain Level 10 04/03/20 22:10
[2020-04-03] MEDS: Ketorolac 30 MG/ML VIAL IVP (22:36)
[2020-04-03 22:49] VITALS: BP 144/75; PULSE 103; RESP 18
--- NOTE | 2020-04-03 23:03 | DI.RAD_ITS ---
EXAM: XR KNEE LT 3V AP,LAT,JAIME CLINICAL HISTORY: 1 day pain, swelling, no trauma. TECHNIQUE: 2D digital imaging was performed. COMPARISON: No exams were available for comparison FINDINGS: BONES: No acute fracture is present. No bony destructive lesion is seen. There is a chronic appearin g deformity of the posterior tibia seen on the lateral view. The bones appear osteopenic. JOINTS: The knee is normally aligned. There is a small joint effusion. There is mild periarticular s purring. There is mild narrowing of the medial femoral tibial joint space. SOFT TISSUE: Normal. IMPRESSION: Osteopenia and and mild degenerative changes. Small joint effusion. DATA REPOSITORY: RADIATION DOSE DELIVERED:
--- NOTE | 2020-04-03 23:08 | DI.VRAD_ITS ---
PROCEDURE INFORMATION: Exam: XR Left Knee Exam date and time: 04/03/2020 10:55 PM Age: 79 years old Clinical indication: Pain; Knee; Left TECHNIQUE: Imaging protocol: XR Left knee. Views: 3 views. COMPARISON: No relevant prior studies available. FINDINGS: Bones/joints: There is mild narrowing of the medial compartment of the tibiofemoral joint with mild periarticular spurring consistent with mild degenerative joint disease. There are similar findings at the patellofemoral joint. Cannot exclude small suprapatellar effusion. Osseous mineralization is normal. There are no acute displaced fractures or subluxations. There is mild chronic appearing osseous deformity of the posterior aspect of the proximal left tibial epiphysis, which may represent sequela of old trauma. Soft tissues: Normal. IMPRESSION: 1. Mild degenerative changes of the left knee. 2. Possible small suprapatellar effusion. Dictated and Authenticated by: Say Hendrickson MD. Ordering:SALMA Navarro MD
[2020-04-03 23:17] LABS: Abs Immature Grans 0.01 10^3/uL (0.0-0.06); Absolute Basophil Count 0.02 10^3/uL (0.0-0.2); Absolute Eosinophil Count 0.07 10^3/uL (0.0-0.7); Absolute Lymphocyte Count 2.54 10^3/uL (1.2-3.4); Absolute Neutrophil Count 3.15 10^3/uL (1.2-6.7); Basophils % 0.3; HCT 40.5 % (36.0-46.0); HGB 13.7 g/dL (11.2-15.7); Immature Grans % 0.1; Lymphocytes % 36.9; MCH 29.4 pg (27.0-33.0); MCHC 33.8 % (32.0-36.0); MCV 86.9 fL (80-95); MPV 8.4 fL (8.0-11.0); Neutrophils % 45.7; Nucleated RBC 0 %; Platelet Count 199 10^3/uL (130-400); RBC 4.66 10^6/uL (3.93-5.22); RDW 14.9 % (11.7-14.6); RDW-SD 47.7 fL; WBC 6.89 10^3/uL (4.4-10.8)
[2020-04-03 23:30] LABS: ALT 22 U/L (14-59); AST 24 U/L (15-37); Albumin 3.2 g/dL (3.4-5.0); Alkaline Phosphatase 90 U/L (46-116); Anion Gap 8.9 mmol/L (3-11); BUN 19 mg/dL (7-18); Bilirubin, Total 0.4 mg/dL (0.2-1.0); C-Reactive Protein 2.76 mg/dL (0.0-0.3); CO2 24.1 mmol/L (21.0-32.0); Calcium 8.5 mg/dL (8.5-10.1); Chloride 103 mmol/L (98-107); Estimated GFR 39.72 (mL/min/1.73m2); Glucose 128 mg/dL (74-106); Potassium 3.6 mmol/L (3.5-5.1); Sodium 136 mmol/L (136-145); Total Protein 6.2 g/dL (6.4-8.2)
[2020-04-03 23:39] VITALS: BP 135/58; PULSE 98; RESP 16; O2SAT 98
[2020-04-03 23:41] VITALS: BP 135/58; PULSE 88; TEMP 37; O2SAT 97
[2020-04-04 00:02] LABS: ESR 16 mm/hr (0-30)
--- NOTE | 2020-04-04 07:50 | NUR.NOTE ---
Nursing Note: Patient's arrived asking about patient's hearing aids. She felt that she had left them here. I checked the department and asked nursing about hand off this morning. None were found and there was no mention at nursing hand off this morning. Chantelle Chance
== END 2020-04-03 23:45 | disposition home or self-care (01) ==
PROVIDERS: Emergency Provider Student in an Organized Health Care Education/Training Program; PCP Family Medicine
DX: M25.562 Pain in left knee (principal); M25.462 Effusion, left knee; D70.9 Neutropenia, unspecified
CPT/HCPCS: 36415; 73562; 80053; 85652; 96374; 99284; 85025; 86140; J1885

== ENCOUNTER 2020-04-04 01:32 | Outpatient (CLI) | payer MEDICARE, SELFPAY ==
--- NOTE | 2020-04-04 08:30 | DI.MRI_ITS ---
EXAM: MR THORACIC SPINE WO CLINICAL HISTORY: THORACIC SPINE PAIN,M54.6. TECHNIQUE: Multiplanar multisequence MRI of the Thoracic spine was performed. CONTRAST MATERIAL: IV Contrast: Noncontrast COMPARISON: MR MRI - THORACIC SPINE WO CONT from 12/16/[address] CHEST PE CTA from 08/30/2019 FINDINGS: Bones: The vertebral body heights are well maintained. Alignment is satisfactory. The signal characte ristics are unremarkable. Cord: The thoracic cord is normal size and signal intensity. No intrinsic cord lesion is present. Discs: There is a small central disc protrusion at T11-12 which effaces the anterior CSF space but do es not impinge on the cord. There is minimal bulging of the T 10-11 disc. The remaining discs are wel l maintained. There are minimal endplate osteophytes. Soft tissues: Normal. Aorta is normal in diameter. IMPRESSION: Small central disc protrusion at T11-12. Mild degenerative disc changes throughout. DATA REPOSITORY:
--- NOTE | 2020-04-04 09:10 | DI.MRI_ITS ---
EXAM: MR LUMBAR SPINE WO CLINICAL HISTORY: SPINAL STENOSIS,M48.00,SEVERE RLE RADICULOPATHY,PREOP. TECHNIQUE: Multiplanar multisequence MRI of the Lumbar spine was performed. COMPARISON: MR MRI - LUMBAR SPINE WO CONTRAST from 10/14/2017 FINDINGS: Bones: The last intervertebral disc space is designated the L5/S1 level for the numbering purpose of this examination. The vertebral body heights are well maintained. There is a mild levoscoliosis. T here are degenerative signal changes in the vertebral endplates at L5-S1. Cord: The conus tip ends at the T12 level. It is of normal size and signal intensity. The T11-12 level is unremarkable. T12-L1: No disc herniations or bulges are present. No central spinal canal or neural foraminal stenos is. L1-2: Minimal disc bulging. Mild facet degenerative changes. No central spinal canal or neural fora vane stenosis. L2-3: Mild concentric disc bulging. Facet degenerative changes, greater on the right causing mild ce ntral canal stenosis as well as mild neural foraminal narrowing on right. L3-4: Mild loss of disc height. Broad-based disc bulging. Prominent facet degenerative changes and ligamentous hypertrophy cause moderate central canal stenosis. There is severe right and mild left n eural foraminal narrowing. There is slight spondylolisthesis. L4-5: Broad-based disc bulging. Prominent facet joint degenerative changes and ligamentous hypertrop hy. Moderate central canal stenosis. Severe bilateral neural foraminal stenosis. Slight spondyloli sthesis. L5-S1: Disc osteophytes projecting toward the left causing moderate neural foraminal narrowing. Ther e are facet degenerative changes, greater on the left. There is no significant central canal stenosi s. There is mild left neural foraminal narrowing. A nerve root sheath cyst is seen at S3. Soft tissues: The visualized SI joints and sacrum are well maintained. The paraspinal soft tissues ar e unremarkable. IMPRESSION: Multilevel degenerative disc changes and facet degenerative changes, greatest at L3-4 and L4-5, causi ng moderate degrees of central canal stenosis as well as bilateral neural foraminal narrowing. DATA REPOSITORY:
[2020-04-04 16:22] LABS: Clarity Cloudy; Mononuclear Cells 18 %; Nucleated Cells 40250 uL (0); Polynuclear Cells 82 %
[2020-04-04 16:40] LABS: Crystals (BF) No Crystals seen
== END 2020-04-04 01:52 ==
PROVIDERS: Student in an Organized Health Care Education/Training Program; PCP Family Medicine; Visit Provider Family Medicine
DX: M47.26 Other spondylosis with radiculopathy, lumbar region (principal); M48.061 Spinal stenosis, lumbar region without neurogenic claudication; M47.814 Spondylosis without myelopathy or radiculopathy, thoracic region; M25.562 Pain in left knee; M25.462 Effusion, left knee
CPT/HCPCS: 20610; 99214; 72146; 72148; 87070; 87205; 89051; 89060

== ENCOUNTER 2020-04-10 19:46 | Observation (INO) | payer MEDICARE, SELFPAY ==
[2020-04-10 19:52] VITALS: BP 141/73; PULSE 76; RESP 16; TEMP 37.1; O2SAT 93
--- NOTE | 2020-04-10 20:19 | ED.GENADUL_ITS ---
Discharge Plan Disposition Patient Disposition: [facility] INPATIENT Condition: Fair Discharge Details Clinical Impression: Back pain with radiculopathy Primary Care Provider: Nimo Burk V ED Provider: Jose Croft Home Meds and New Rx's Prescriptions: No Action fiber RF: 0 levalbuterol tartrate [Xopenex HFA] 15 GM HFA aerosol inhaler 15 gm Inhalation PRN RF: 0 cholecalciferol (vitamin D3) [Vitamin D3] 2,000 UNIT capsule 2,000 unit PO BID RF: 0 bupropion HCl 150 MG tablet extended release 12 hr 150 mg PO BID RF: 0 trazodone 50 MG tablet 50 mg PO HS RF: 0 fexofenadine 60 MG tablet 60 mg PO HS RF: 0 aspirin [Aspir-81] 81 MG tablet,delayed release (DR/EC) 81 mg PO DAILY RF: 0 calcium carbonate [Calcium 500] 500 MG tablet 500 mg PO DAILY AM RF: 0 PreserVision AREDS 1 TAB tablet 1 tab PO BID RF: 0 nitroglycerin [Nitrostat] 0.4 mg Tablet, Sublingual 0.4 mg sublingual PRN PRNRF: 0 hydrocodone-acetaminophen [Fishers] 5-325 mg tablet 1 tab PO PRN PRN (Reason: Pain) RF: 0 gabapentin 100 mg capsule 200 mg PO HS RF: 0 oxycodone 10 mg tablet 10 mg PO . DIRECTED RF: 0 Medical Decision Making Patient really does not wish to be here. She reports is just concerned because of the amount of pain that she has when she tries to ambulate. She has very comfortable when lying down. Currently on oxycodone and ibuprofen. Thinks she had a round of steroids but is not sure when or how much. Only on gabapentin 200 at night. Has not tried Lidoderm patches. Is been referred to neurosurgery, but has yet to have appointment made. Does not have walker, commode, PT, etc. at home. Unable to get into PCP records to look at when steroids were given. For now we will start the patient on gabapentin 300 mg up to a dose of 3 times a day. We will try Lidoderm patch. Dose with ibuprofen. Patient able to sit up on stretcher without a lot of difficulty. However trying to stand just to get to commode caused severe pain and she almost fell. She actually did not want to use the walker. She also moved way too quickly and without apparent realization that quickly moving to an upright position and standing was going to cause significant pain. In any event she is more comfortable back on stretcher. Case discussed with hospitalist. Will place in observation status to titrate gabapentin and other pain modalities as well as obtaining PT consult. Medical Records Medical records reviewed: Yes I reviewed the patient's medical records. HPI General Mode of arrival: EMS . Date/Time Provider Initiated Documentation: 04/10/20 20:18 . Limitations to Documentation: no limitations . Information obtained by: patient, RN/MD, RN notes reviewed and old records reviewed . HPI Narrative: Patient presenting to the ED by ambulance with back pain radiating down the right lower extremity. This is been ongoing for the last month. Currently has no pain while lying on stretcher on her left side. However any type of vertical position including sitting or ambulating causes severe pain mostly in the right lateral thigh. She denies bladder or bowel dysfunction. She denies numbness or weakness. She refused pain medication by EMS. She was urged to come in by her because of the severe pain she has when she tries to do anything. Primary care had switched her from Fishers to straight oxycodone today. She has also been taking ibuprofen. Impingement involving L3-L4 and L4-L5. She has also had some swelling and pain in her left knee which has been followed by Dr. Osman. Still has some swelling and pain there, but is here because of the inability to ambulate due to back and right lower extremity pain. Related Data Home Medications Medication Instructions Recorded Confirmed PreserVision AREDS 1 tab PO BID 06/07/13 04/10/20 aspirin [Aspir-81] 81 mg PO DAILY 06/07/13 04/10/20 bupropion HCl 150 mg PO BID 06/07/13 04/10/20 calcium carbonate [Calcium 500] 500 mg PO DAILY AM 06/07/13 04/10/20 fexofenadine 60 mg PO HS 06/07/13 04/10/20 trazodone 50 mg PO HS 06/07/13 04/10/20 Fiber 12/28/14 04/04/20 cholecalciferol (vitamin D3) 2,000 unit PO BID 06/12/17 04/10/20 [Vitamin D3] levalbuterol tartrate [Xopenex HFA] 15 gm INHALATION PRN inhaler 06/12/17 04/10/20 nitroglycerin [Nitrostat] 0.4 mg SUBLINGUAL PRN PRN 08/30/19 04/10/20 gabapentin 200 mg PO HS 04/03/20 04/10/20 hydrocodone-acetaminophen [Fishers] 1 tab PO PRN PRN 04/03/20 04/04/20 oxycodone 10 mg PO . DIRECTED 04/10/20 04/10/20 Allergies Allergy/AdvReac Type Severity Reaction Status Date / Time Penicillins Allergy Severe swelling Unverified 04/10/20 21:54 Sulfa (Sulfonamide Allergy Unknown Unverified 04/10/20 21:54 Antibiotics) diazepam [From Valium] AdvReac Severe it sent me Unverified 04/10/20 21:54 on a trip propoxyphene HCl AdvReac Severe sent me on Unverified 04/10/20 21:54 [From Darvon] a trip General Stated Complaint: Nk/Back Pain MELISSA: 4 Review of Systems Narrative: As documented in HPI otherwise negative as below. Const: no fever, chills, weakness Resp: no cough, SOB, pleuritic pain CV: no CP, diaphoresis, edema, syncope GI: no abdominal pain, nausea, vomiting, diarrhea Neuro: no headache, numbness, focal weakness, confusion PFSH Medical History Colon cancer GERD (gastroesophageal reflux disease) Macular degeneration Neutropenia Chronic benign neutropenia, Neupogen recommended prior to all invasive pr ocedures and dental work Surgical History back surgery continues with lumbar pain. Is considering another steroid inj. 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 Colectomy 07/2014. Discovered on colonoscopy. eye surgery cataract repair History of cataract surgery macular degeneration eye surgery Total replacement of hip Right. 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 HEENT: NC/AT. Normal facial exam. Neck: Supple. Trachea midline. Lungs: Normal respiratory effort. Back: Pain with movement to some degree in low back. Unable to palpate any tender areas. Neuro: A+O x 3. Normal speech, mentation, gait. Cranial nerves II - XII grossly intact. No gross motor or sensory deficit. Normal strength and sensation in LE. Ext: Normal ROM of right hip and knee without pain. Course Vital Signs Vital signs: Vital Signs Temperature 98.8 F 04/10/20 19:52 Pulse 76 04/10/20 19:52 Respiratory Rate 16 04/10/20 19:52 Blood Pressure 141/73 H 04/10/20 19:52 Pulse Oximetry 93 04/10/20 19:52 Temperature 98.8 F 04/10/20 19:52 Temperature Source Skin 04/10/20 19:52 Pulse 76 04/10/20 19:52 Respiratory Rate 16 04/10/20 19:52 Respiratory Effort 04/10/20 20:00 Blood Pressure 141/73 H 04/10/20 19:52 Blood Pressure Position Supine 04/10/20 19:52 Pulse Oximetry 93 04/10/20 19:52 Oxygen Delivery Method Room Air 04/10/20 19:52 Oxygen Flow Rate 0 04/10/20 19:52 Pain Level 3 04/10/20 19:52
--- NOTE | 2020-04-10 20:36 | NUR.NOTE ---
Nursing Note: pt provided with ice water per her request with provider approval.
[2020-04-10] MEDS: Ibuprofen 600 MG TAB PO (21:48)
[2020-04-10] MEDS: Gabapentin 300 MG CAP PO (21:48)
[2020-04-10] MEDS: Lidocaine 5% Patch 1 PATCH TP (21:48)
--- NOTE | 2020-04-10 23:27 | W.PM.HP.N ---
Date of service: 04/10/20 Time of Service: 23:28 Assessment and Plan Assessment and plan (1) Back pain with radiculopathy: Start date: 04/10/20 Status: Acute Assessment and plan: This is a 79-year-old lady with known lumbar degenerative disc disease and spinal stenosis as well as foraminal stenosis presenting with uncontrolled pain with right L3-L4/L4-L5 pain down into her thigh. He does have planned surgery in the near future and it was not having pain control therefore was admitted for observation to have physical therapy and Occupational Therapy evaluate her as well as to adjust medical therapy. She had increased Neurontin and will trial Dilaudid for acute pain control considering a fentanyl patch if she is needing to take continuous or daily doses of Dilaudid and significant dosages. She appears to be comfortable lying at rest and she most likely will continue on short acting narcotics with topical lidocaine, advancing Neurontin, ibuprofen and as needed Dilaudid if no side effects but good pain control. Her other medical problems are stable. She does have a history of atypical chest pain but no overt CAD. She may have some mild memory issues which was not present in the ED when attempting to instruct on using a walker which helped her pain control. History of Present Illness History of Present Illness Chief Complaint: Severe low back pain with known lumbar disc radiculopathy Narrative: This is a [id number]-year-old patient who has known degenerative disc disease with foraminal stenosis involving L3-4 and L4-5 who was offered repeat lumbar surgery in 2018 with fixation for recurrent low back pain now presenting with about a 3 week history of exacerbation of her low back pain with radiation of radicular pain down her right leg, especially in the thigh area. She has severe pain down her right leg whenever she attempts to stand and walk but is very comfortable lying still in bed on her left side. See ED report of worsening pain when patient attempts to stand vertically even after adequate pain control offered with ibuprofen, a larger dose of Neurontin and lidocaine patch. She had been on hydrocodone which was failing and then oxycodone which was also failing as an outpatient. She will be admitted for pain control and reevaluation by OT and PT with Dilaudid orally attempted. Patient has had no injury and does swim and do yoga with plans to see the neurosurgeon who wanted to do surgery 2018 to reevaluate for lumbar fixation. She previously had a laminectomy which was effective for years. Review of Systems Narrative: 13 point review of systems positive for left knee swelling which is worsened with abnormal gait with right sciatica and is followed by local orthopedist, otherwise unrevealing or stable. [facility] Medical History (Updated 04/11/20 @ 06:25 by Palmer Cabello) Chest pain Colon cancer GERD (gastroesophageal reflux disease) Macular degeneration Neutropenia Chronic benign neutropenia, Neupogen recommended prior to all invasive procedures and dental work Surgical History back surgery continues with lumbar pain. Is considering another steroid inj. 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 Colectomy 07/2014. Discovered on colonoscopy. eye surgery cataract repair History of cataract surgery macular degeneration eye surgery Total replacement of hip Right. 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 Meds Home Medications and Allergies Home Medications Medication Instructions Recorded Confirmed Type PreserVision AREDS 1 tab PO BID 06/07/13 04/10/20 History aspirin [Aspir-81] 81 mg PO DAILY 06/07/13 04/10/20 History bupropion HCl 150 mg PO BID 06/07/13 04/10/20 History calcium carbonate [Calcium 500] 500 mg PO DAILY AM 06/07/13 04/10/20 History fexofenadine 60 mg PO HS 06/07/13 04/10/20 History trazodone 50 mg PO HS 06/07/13 04/10/20 History Fiber 12/28/14 04/04/20 History cholecalciferol (vitamin D3) 2,000 unit PO BID 06/12/17 04/10/20 History [Vitamin D3] levalbuterol tartrate [Xopenex HFA] 15 gm INHALATION PRN inhaler 06/12/17 04/10/20 History nitroglycerin [Nitrostat] 0.4 mg SUBLINGUAL PRN PRN 08/30/19 04/10/20 History gabapentin 200 mg PO HS 04/03/20 04/10/20 History hydrocodone-acetaminophen [Success] 1 tab PO PRN PRN 04/03/20 04/04/20 History oxycodone 10 mg PO . DIRECTED 04/10/20 04/10/20 History Allergies Allergy/AdvReac Type Severity Reaction Status Date / Time Penicillins Allergy Severe swelling Unverified 04/10/20 21:54 Sulfa (Sulfonamide Allergy Unknown Unverified 04/10/20 21:54 Antibiotics) diazepam [From Valium] AdvReac Severe it sent me Unverified 04/10/20 21:54 on a trip propoxyphene HCl AdvReac Severe sent me on Unverified 04/10/20 21:54 [From Darvon] a trip Exam Narrative Exam Narrative: General: Patient appears appropriate for age and in no acute distress lying comfortably in bed. She is laying on her left side. She has a heating pad over her right hip. She is alert and oriented obese to person place. HEENT: Normocephalic, eyes with pupils equal and reactive light symmetrically, extraocular movement intact and sclera anicteric. Oropharynx with moist mucosa. Neck: Supple without JVD. Lungs: Clear to auscultation and percussion. Heart: Regular rate and rhythm with no appreciable murmur or gallop. Breast: Exam deferred. Abdomen: Slightly obese contour, soft and nontender to palpation with no palpable hepatosplenomegaly. Bowel sounds positive in all quadrants. Genitalia/rectal: Exam deferred. Extremities: Without clubbing, cyanosis or edema. Left hip has some discomfort to range of motion but mostly over the sciatic notch. Back is tender to palpation of the lower lumbar spine. Neuro: Cranial nerves II to XII grossly intact, no focalizing motor deficits. DTRs are physiologic and symmetrical. Psych: Slightly flattened affect, normal mood. No abnormal thought processes. Remote and recent memory appear to be grossly intact. Results Imaging Imaging Studies: a MRI:MR lumbar spine wo EXAM: MR LUMBAR SPINE WO CLINICAL HISTORY: SPINAL STENOSIS,M48.00,SEVERE RLE RADICULOPATHY,PREOP. TECHNIQUE: Multiplanar multisequence MRI of the Lumbar spine was performed. COMPARISON: MR MRI - LUMBAR SPINE WO CONTRAST from 10/14/2017 FINDINGS: Bones: The last intervertebral disc space is designated the L5/S1 level for the numbering purpose of this examination. The vertebral body heights are well maintained. There is a mild levoscoliosis. There are degenerative signal changes in the vertebral endplates at L5-S1. Cord: The conus tip ends at the T12 level. It is of normal size and signal intensity. The T11-12 level is unremarkable. T12-L1: No disc herniations or bulges are present. No central spinal canal or neural foraminal stenosis. L1-2: Minimal disc bulging. Mild facet degenerative changes. No central spinal canal or neural foraminal stenosis. L2-3: Mild concentric disc bulging. Facet degenerative changes, greater on the right causing mild central canal stenosis as well as mild neural foraminal narrowing on right. L3-4: Mild loss of disc height. Broad-based disc bulging. Prominent facet degenerative changes and ligamentous hypertrophy cause moderate central canal stenosis. There is severe right and mild left neural foraminal narrowing. There is slight spondylolisthesis. L4-5: Broad-based disc bulging. Prominent facet joint degenerative changes and ligamentous hypertrophy. Moderate central canal stenosis. Severe bilateral neural foraminal stenosis. Slight spondylolisthesis. L5-S1: Disc osteophytes projecting toward the left causing moderate neural foraminal narrowing. There are facet degenerative changes, greater on the left. There is no significant central canal stenosis. There is mild left neural foraminal narrowing. A nerve root sheath cyst is seen at S3. Soft tissues: The visualized SI joints and sacrum are well maintained. The paraspinal soft tissues are unremarkable. IMPRESSION: Multilevel degenerative disc changes and facet degenerative changes, greatest at L3-4 and L4-5, causing moderate degrees of central canal stenosis as well as bilateral neural foraminal narrowing. Dictated By: Eliz Bell M.D. 04/04/20 1055 a MRI:MR thoracic spine wo EXAM: MR THORACIC SPINE WO CLINICAL HISTORY: THORACIC SPINE PAIN,M54.6. TECHNIQUE: Multiplanar multisequence MRI of the Thoracic spine was performed. CONTRAST MATERIAL: IV Contrast: Noncontrast COMPARISON: MR MRI - THORACIC SPINE WO CONT from 12/16/[address] CHEST PE CTA from 08/30/2019 FINDINGS: Bones: The vertebral body heights are well maintained. Alignment is satisfactory. The signal characteristics are unremarkable. Cord: The thoracic cord is normal size and signal intensity. No intrinsic cord lesion is present. Discs: There is a small central disc protrusion at T11-12 which effaces the anterior CSF space but does not impinge on the cord. There is minimal bulging of the T 10-11 disc. The remaining discs are well maintained. There are minimal endplate osteophytes. Soft tissues: Normal. Aorta is normal in diameter. IMPRESSION: Small central disc protrusion at T11-12. Mild degenerative disc changes throughout. Dictated By: Eliz Bell M.D. 04/04/20 1111 EXAM: XR KNEE LT 3V AP,LAT,JAIME CLINICAL HISTORY: 1 day pain, swelling, no trauma. TECHNIQUE: 2D digital imaging was performed. COMPARISON: No exams were available for comparison FINDINGS: BONES: No acute fracture is present. No bony destructive lesion is seen. There is a chronic appearing deformity of the posterior tibia seen on the lateral view. The bones appear osteopenic. JOINTS: The knee is normally aligned. There is a small joint effusion. There is mild periarticular spurring. There is mild narrowing of the medial femoral tibial joint space. SOFT TISSUE: Normal. IMPRESSION: Osteopenia and and mild degenerative changes. Small joint effusion. Dictated By: Eliz Bell M.D. 04/04/20 0945 Labs Result diagrams: 04/11/20 05:35 04/11/20 05:35 Last Vital Signs Temp 37.1 C 04/10/20 19:52 Pulse 76 04/10/20 19:52 Resp 16 04/10/20 19:52 BP 141/73 H 04/10/20 19:52 Pulse Ox 93 04/10/20 19:52 COVID-19 Screening Have you, or household traveled for leisure in last 14 days?: No Had IN PERSON contact w/suspected or confirmed C-19 person: No
[2020-04-11] VITALS (8 sets, daily range): BP systolic 105–133; BP diastolic 57–72; PULSE 60–70; RESP 14–18; TEMP 36.2–37; O2SAT 92–95
--- NOTE | 2020-04-11 00:44 | NUR.NOTE ---
pt had attempted to get to the commode with assist of one nurse and a walker. she refused the walker i dont use a walker she then hopped off of the bed and almost collapsed on the floor. she cried loudly in pain. she said that her hates to hear her yell like that at home and that is why she is here . she did use the walker on return to the bed and was sreaming and was very unsteadyNursing Note:
[2020-04-11] MEDS: predniSONE 20 MG TAB 40 MG PO (01:36)
[2020-04-11] MEDS: HYDROmorphone 2 MG TAB PO ×5 (01:48→20:15)
[2020-04-11] MEDS: Calcium Carbonate 1.25 GM TAB 0.5 GM PO (05:34)
[2020-04-11] MEDS: Ibuprofen 600 MG TAB PO ×3 (05:35→21:32)
[2020-04-11] MEDS: Heparin 5,000 UNITS/ML VIAL 5000 UNITS SC (05:37)
[2020-04-11 07:18] LABS: ALT 30 U/L (14-59); AST 20 U/L (15-37); Albumin 2.5 g/dL (3.4-5.0); Alkaline Phosphatase 122 U/L (46-116); Anion Gap 7.6 mmol/L (3-11); BUN 16 mg/dL (7-18); Bilirubin, Total 0.3 mg/dL (0.2-1.0); CO2 25.4 mmol/L (21.0-32.0); Calcium 9.2 mg/dL (8.5-10.1); Chloride 102 mmol/L (98-107); Estimated GFR 53.76 (mL/min/1.73m2); Glucose 133 mg/dL (74-106); Potassium 4.3 mmol/L (3.5-5.1); Sodium 135 mmol/L (136-145); Total Protein 6.7 g/dL (6.4-8.2)
[2020-04-11 07:23] LABS: Abs Immature Grans 0.01 10^3/uL (0.0-0.06); Absolute Basophil Count 0.01 10^3/uL (0.0-0.2); Absolute Eosinophil Count 0.03 10^3/uL (0.0-0.7); Absolute Lymphocyte Count 0.93 10^3/uL (1.2-3.4); Absolute Monocyte Count 0.34 10^3/uL (0.1-0.8); Basophils % 0.7; HCT 35.3 % (36.0-46.0); HGB 11.8 g/dL (11.2-15.7); Immature Grans % 0.7; Lymphocytes % 63.3; MCH 28.4 pg (27.0-33.0); MCHC 33.4 % (32.0-36.0); MCV 85.1 fL (80-95); MPV 8.8 fL (8.0-11.0); Monocytes % 23.1; Neutrophils % 10.2; Nucleated RBC 0 %; RBC 4.15 10^6/uL (3.93-5.22); RDW 14.3 % (11.7-14.6); RDW-SD 44.8 fL
[2020-04-11 07:41] LABS: Platelet Count 325 10^3/uL (130-400)
[2020-04-11 07:42] LABS: Diff Comment Diff Reviewed; RBC Morphology Normal
[2020-04-11 07:43] LABS: Absolute Neutrophil Count 0.15 10^3/uL (1.2-6.7); WBC 1.47 10^3/uL (4.4-10.8)
[2020-04-11] MEDS: Gabapentin 300 MG CAP PO ×3 (07:49→20:15)
[2020-04-11] MEDS: buPROPion-CR 150 MG TABCR PO ×2 (07:49→20:17)
[2020-04-11] MEDS: Aspirin E.C. 81 MG TABEC PO (07:49)
[2020-04-11] MEDS: Cholecalciferol (Vitamin D3) 1,000 UNIT TAB 2000 UNITS PO ×2 (07:49→20:15)
--- NOTE | 2020-04-11 09:15 | PT.INNT ---
PT Notes Visit Reasons: ACUTE LUMBAR RADICULAR PAIN NON TREATMENT NOTE: 04/11/20 PT arrived into room with patient sitting up in bed. She is very frustrated about this situation. She is in minimal pain when lying down and is perfectly independent. When standing she instantly gets intractable pain. Pain medication was coming, and we may stop in later to see if there is any advantage to getting patient moving, but considering the presentation, interventions may be limited. Patient does have spine consult and possible surgery pending at [facility] neuro she states.
--- NOTE | 2020-04-11 09:25 | NT_ITS ---
Date of service: 04/11/20 Time of Service: 08:30 Occupational Therapy Notes 04/11/20 OT consult received and pts chart was reviewed. Pt is emotional and frustrated about her current situation. She notes to OT that she is wondering why she is here and states that she has minimal pain lying down, and only when she moves. She is not at this time interested in performing her ADLs and she is asking to speak with her healthcare social worker about what the plan of care will consist of at this time. OT will touch base with pt tomorrow and see where she is functionally at this time. Mabel Ham, OTR/L [facility]
[2020-04-11] MEDS: Lidocaine Patch Removal 1 EACH TD (10:23)
[2020-04-11] MEDS: fentaNYL 12 MCG PATCH TD (13:52)
--- NOTE | 2020-04-11 13:52 | INITIAL_ITS ---
- If Service Date Differs Date of service: 04/11/20 Time of Service: 17:00 Care Management Initial Assess REASON FOR HOSPITALIZATION:: Acute lumbar radicular pain PAST MEDICAL HISTORY/PAST SURGICAL HISTORY:: Medical History (Updated 08/30/19 @ 17:02 by Jairo Campuzano MD). Colon cancer (Inactive). Lymphocytosis (Acute). Macular degeneration (Chronic). Surgical History . back surgery (Resolved). continues with lumbar pain. Is considering another steroid inj. section (Resolved). Hysterectomy at time of for placenta accreta. Colectomy (Resolved). 07/2014. Discovered on colonoscopy. eye surgery (Resolved). cataract repair. History of cataract surgery (Resolved). macular degeneration eye surgery (Resolved). Total replacement of hip (Resolved). Right. PREVIOUS FUNCTIONAL STATUS/SOCIAL/FAMILY SUPPORTS:: Raeann resides in a single family home in [place] with her Gonzalez. They have 3 children and 6 grandchildren, all reside outside of the [facility]. Raeann is independent at baseline and does not receive any community services. 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 CURRENT FUNCTIONAL STATUS:: Raeann was lying in bed, where she reports her pain is more managed. She shares that this is a chronic issue which she is hopeful will be remedied by surgical intervention. She reports working with PT extensively in the past, with no relief. She verbalizes understanding of observation status and limits to inpatient based interventions at this time. ADVANCE DIRECTIVES:: Has a blank copy at home which she intends to complete Has patient been provided with info about the portal/API?: Yes Did the patient sign up for the portal?: No CODE STATUS:: Full Code INSURANCE COVERAGE / FINANCIAL ISSUES:: Medicare. AARP CURRENT HOME/COMMUNITY SERVICES/EQUIPMENT:: No current services or equipment. PRIMARY CARE PHYSICIAN:: Nimo Burk POTENTIAL DISCHARGE NEEDS:: Follow up appointments. PATIENT/FAMILY EDUCATION NEEDS:: Review discharge instructions, discuss Ask Me Three. ANTICIPATED BARRIERS TO DISCHARGE:: None identified. TRANSPORTATION:: Via private vehicle with her , Gonzalez. PLAN:: Raeann will return home when ready per MD. She will follow up with her PCP and plan of care as prescribed. She will transport via private vehicle with family or a friend.
--- NOTE | 2020-04-11 14:48 | CHAPLAIN ---
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 She has some neighbors who are physicians and she said she asked them what she should do about her back pain, and they suggested she come to the ED. Raeann is comfortable in one position on her side. She said she has been in pain for a couple of weeks, and Emmanuel was having a hard time watching her be in pain. Along with her back pain, Raeann said she is dealing with needing eye surgery, and swollen knee. Her other knee swelled up recently and she had it drained, now the opposite knee is swollen. Taking care of these medical issues, and making appointments is seemingly overwhelming at the moment, as problems seem to be piling up. Raeann has a son in [place] with a young grandson, and daughters with older grandchildren. I left Raeann's room when her sister called. I will continue to visit. Raeann is Sikh.
--- NOTE | 2020-04-11 15:38 | W.PM.PROGNOT ---
Date of Service Date of service: 04/11/20 Time of Service: 15:38 Assessment and Plan Assessment and plan (1) Back pain with radiculopathy: Start date: 04/11/20 Start time: 15:42 Status: Acute Assessment and plan: Continues to have pain. She is ambulatory but pain prevents her from wanting to move as she endorses no pain when lying in bed. PT eval Low dose fentanyl patch with steroid burst and dilaudid po as needed. above case discussed with Dr. Fregoso who is in agreement. Subjective Subjective Patient reports: still having pain Interval history since last seen: Still has pain. Will place fenatnyl patch for further relieve of pain awaiting to hear when surgery will be scheduled, will have PT evaluate her with possible discharge home tomorrow. She denies CP, SOB, NVD Exam Narrative Exam Narrative: General: Patient appears appropriate for age and in no acute distress lying comfortably in bed. She is laying on her left side. She has a heating pad over her right hip. She is alert and oriented obese to person place. HEENT: Normocephalic, eyes with pupils equal and reactive light symmetrically, extraocular movement intact and sclera anicteric. Oropharynx with moist mucosa. Neck: Supple without JVD. Lungs: Clear to auscultation and percussion. Heart: Regular rate and rhythm with no appreciable murmur or gallop. Breast: Exam deferred. Abdomen: Slightly obese contour, soft and nontender to palpation with no palpable hepatosplenomegaly. Bowel sounds positive in all quadrants.. Extremities: Without clubbing, cyanosis or edema. Left hip has some discomfort to range of motion but mostly over the sciatic notch. Back is tender to palpation of the lower lumbar spine. Neuro: Cranial nerves II to XII grossly intact, no focalizing motor deficits. DTRs are physiologic and symmetrical. Objective Last Vital Signs Temp 36.5 C 04/11/20 11:14 Pulse 67 04/11/20 11:14 Resp 17 04/11/20 11:14 BP 105/58 L 04/11/20 11:14 Pulse Ox 93 04/11/20 11:14 Laboratory Results - last 24 hr 04/11/20 04/11/20 06:30 06:30 WBC 1.47 L* RBC 4.15 Hgb 11.8 Hct 35.3 L MCV 85.1 MCH 28.4 MCHC 33.4 RDW 14.3 Plt Count 325 D MPV 8.8 Immature Gran % 0.7 Neutrophils % 10.2 Lymphocytes % 63.3 Monocytes % 23.1 Eosinophils % 2.0 Basophils % 0.7 Nucleated RBC % 0 Absolute Neutrophils 0.15 L* Absolute Lymphocytes 0.93 L Absolute Monocytes 0.34 Absolute Eosinophils 0.03 Absolute Basophils 0.01 RBC Morphology Normal Sodium 135 L Potassium 4.3 Chloride 102 Carbon Dioxide 25.4 Anion Gap 7.6 BUN 16 Creatinine 1.00 Estimated GFR/1.73 m2 53.76 Glucose 133 H Calcium 9.2 Total Bilirubin 0.3 AST 20 ALT 30 Alkaline Phosphatase 122 H Total Protein 6.7 Albumin 2.5 L
--- NOTE | 2020-04-11 15:50 | PHA.REVIEW ---
Pharmacy Admission Review - Admission Clinical Review (Last Updated 04/11/20 @ 06:25 by Palmer Cabello) Back pain with radiculopathy (Acute) Penicillins Allergy (Severe, Unverified 04/10/20 21:54) swelling Sulfa (Sulfonamide Antibiotics) Allergy (Unknown, Unverified 04/10/20 21:54) diazepam [From Valium] Adverse Reaction (Severe, Unverified 04/10/20 21:54) it sent me on a trip propoxyphene HCl [From Darvon] Adverse Reaction (Severe, Unverified 04/10/20 21:54) sent me on a trip Height 5 ft 2 in Weight 64.5 kg - Renal Dosing Renal Dosing: BUN 16 mg/dL (7-18) 04/11/20 06:30 Creatinine 1.00 mg/dL (0.55-1.02) 04/11/20 06:30 Medications needing adjustments: Reviewed (Crcl ~37.2 mL/min recommended to avoid ibuprofen in pts with eGFR between 30 and 60 that have intercurrent disease that increases the risk of PABLITO.) - Anticoagulation Anticoagulation: Hgb 11.8 g/dL (11.2-15.7) 04/11/20 06:30 Hct 35.3 % (36.0-46.0) L 04/11/20 06:30 Plt Count 325 10^3/uL (130-400) D 04/11/20 06:30 Creatinine 1.00 mg/dL (0.55-1.02) 04/11/20 06:30 DVT Prohphylaxis: Reviewed Medications: Heparin Therapeutic Anticoagulation: N/A - Opiate Usage Evaluate Pain Scale/Pains Meds: Reviewed Scheduled Bowel Reg ordered if on Opiates?: No (has PRN meds ordered) - Relevant Labs Sodium 135 mmol/L (136-145) L 04/11/20 06:30 Potassium 4.3 mmol/L (3.5-5.1) 04/11/20 06:30 Chloride 102 mmol/L (98-107) 04/11/20 06:30 Electrolytes, C-Reactive P, ESR: Reviewed - DM Control DM Control: Glucose 133 mg/dL (74-106) H 04/11/20 06:30 Insulin Dosing: N/A (BG elevated, no A1c on file or previous BG levels) - Heart Failure/AK EF%, DENA's, B-Blockers, Diuretics: N/A - BP Control BP Control: Blood Pressure 105/58 Blood Pressure 108/57 Blood Pressure 130/70 If elevated: N/A - Qtc Review If Elevated: N/A - IV to PO Switch IV Medications: Reviewed - Home Meds Home Med List reviewed: Intervened (updated interval on levalbuterol and fexofenadine dosing based on last rxs from external med history. Last fexofenadine Rx one external med history from this month. Multiple [employer] depressants.) Relevent Home Meds Not ordered & why?: fexofenadine is ordered but at dose from old rx (will mention to provider, entered as pts own med), hydrocodone/APAP, oxycodone (has new fentanyl patch ordered), preservision - Current meds Current Medication Order Review: Intervened (talked to provider about frequency of levalbuterol, adjusted dosage for of calcium carbonate so nursing dosesnt need to cut tablets, fixed frequency of nitroglycerin.) - Comments Comments/Follow Ups: Watch VS, BG, labs and for med changes (need of BM meds, pain controll)
[2020-04-11] MEDS: predniSONE 20 MG TAB PO (16:08)
[2020-04-11 16:40] LABS: Bilirubin Negative (Negative); Blood Negative (Negative); Clarity Clear (Clear); Glucose 100 mg/dL (Negative); Ketones Negative (Negative); Leukocyte Esterase Negative (Negative); Nitrite Negative (Negative); Specific Gravity 1.015 (1.005-1.025); Urobilinogen 0.2 EU/dL (Up TO 0.2)
[2020-04-11] MEDS: Docusate Sodium 100 MG CAP PO (20:15)
[2020-04-11] MEDS: Fexofenadine 180 MG TAB PO (21:31)
[2020-04-11] MEDS: traZODone 50 MG TAB PO (21:31)
[2020-04-11] MEDS: Lidocaine 5% Patch 1 PATCH TP (21:31)
[2020-04-12 03:45] VITALS: BP 112/66; PULSE 60; RESP 16; TEMP 36.2; O2SAT 93
[2020-04-12] MEDS: Ibuprofen 600 MG TAB PO (06:32)
[2020-04-12] MEDS: buPROPion-CR 150 MG TABCR PO (07:52)
[2020-04-12] MEDS: Gabapentin 300 MG CAP PO (07:52)
[2020-04-12] MEDS: Cholecalciferol (Vitamin D3) 1,000 UNIT TAB 2000 UNITS PO (07:52)
[2020-04-12] MEDS: predniSONE 20 MG TAB 60 MG PO (07:52)
[2020-04-12] MEDS: Docusate Sodium 100 MG CAP PO (07:52)
[2020-04-12 08:03] VITALS: BP 130/69; PULSE 64; RESP 16; TEMP 36.5; O2SAT 100
[2020-04-12 08:24] LABS: COVID-19 RT-PCR UVMMC Result Negative (Negative)
--- NOTE | 2020-04-12 08:42 | NT_ITS ---
Date of service: 04/12/20 Time of Service: 08:00 Occupational Therapy Notes 04/12/20 OT attempted to consult with pt who states that she is going home and is not interested from services. OT will discharge pt from skilled OT services at this time. Mabel Ham OTR/[facility]
--- NOTE | 2020-04-12 08:52 | W.PM.DS.N ---
Date of service: 04/12/20 Time of Service: 08:53 DS: Diagnosis Discharge Diagnosis (1) Back pain with radiculopathy: Status: Acute Discharge Plan Disposition Patient Disposition: HOME Condition: Fair Discharge Details Reason For Visit: ACUTE LUMBAR RADICULAR PAIN Admit Date/Time: 04/10/20 23:19 Admit Provider: Palmer Cabello Attending Provider: Palmer Cabello Primary Care Provider: Nimo Burk V Hospital Course Hospital Course: This is a 79-year-old lady with known lumbar degenerative disc disease and spinal stenosis as well as foraminal stenosis presenting with uncontrolled pain with right L3-L4/L4-L5 pain down into her thigh. She does have planned surgery in the near future and was not having pain control therefore was admitted for observation to have physical therapy and Occupational Therapy evaluate her as well as to adjust medical therapy. She had increased Neurontin and was placed on a fentanyl patch. She was also started on oral steroids. She reports being comfortable lying at rest but continues to have severe radiating pain when upright. Plan is to discharge to home with PT referral. she will be continued on current pain regimen. she will f/u outpatient as scheduled. A transfer bench has been ordered. discharge plan discussed with Dr Fregoso who is in agreement. Home Meds and New Rx's Prescriptions: New polyethylene glycol 3350 17 gram Powder In Packet 17 g PO DAILY PRN PRN (Reason: Constipation) Qty: 0 RF: 0 prednisone 20 mg Tablet 60 mg PO DAILY Qty: 15 RF: 0 lidocaine [Lidoderm] 5 % Adhesive Patch,Medicated 1 patch topical Q24H Qty: 15 RF: 0 docusate sodium [Colace] 100 mg Capsule 100 mg PO TID PRN PRNQty: 0 RF: 0 gabapentin 300 mg Capsule 300 mg PO TID Qty: 21 RF: 0 ibuprofen [IBU] 600 mg Tablet 600 mg PO Q8H Qty: 30 RF: 0 fentanyl 12 mcg/hr Patch 72 Hour 12 mcg transdermal Q72H Qty: 1 RF: 0 acetaminophen [Tylenol] 325 mg Tablet 650 mg PO Q4H PRN PRNQty: 0 RF: 0 Continued levalbuterol tartrate [Xopenex HFA] 15 GM HFA aerosol inhaler 15 gm Inhalation Q6H PRN PRNRF: 0 cholecalciferol (vitamin D3) [Vitamin D3] 2,000 UNIT capsule 2,000 unit PO BID RF: 0 bupropion HCl 150 MG tablet extended release 12 hr 150 mg PO BID RF: 0 trazodone 50 MG tablet 50 mg PO HS RF: 0 aspirin [Aspir-81] 81 MG tablet,delayed release (DR/EC) 81 mg PO DAILY RF: 0 calcium carbonate [Calcium 500] 500 MG tablet 500 mg PO DAILY AM RF: 0 PreserVision AREDS 1 TAB tablet 1 tab PO BID RF: 0 nitroglycerin [Nitrostat] 0.4 mg Tablet, Sublingual 0.4 mg sublingual PRN PRNRF: 0 oxycodone 10 mg tablet 10 mg PO . DIRECTED RF: 0 fexofenadine 180 mg tablet 180 mg PO DAILY RF: 0 Discontinued fiber RF: 0 hydrocodone-acetaminophen [[place]] 5-325 mg tablet 1 tab PO PRN PRN (Reason: Pain) RF: 0 gabapentin 100 mg capsule 200 mg PO HS RF: 0 Discharge Instructions Instructions: Lumbar Radiculopathy (ED) Additional Instructions: no lifting, twisting or bending at the waist. use medication as directed only. can use heat or ice for comfort Referrals: Nimo Burk MD [Primary Care Provider] - Activity:: no lifting bending or twi Equipment/Supplies:: transfer bench Diet:: As Tolerated Discharge Orders Discharge Orders: Discharge Order (Routine); Ordered 04/12/20 Ordered By: Rosemary Shah DS: Summary Status at Discharge Functional status at discharge: uses cane/walker Overall status at discharge: patient is not back to baseline Mental Status: mental status grossly normal Speech and Movement: speech and movement normal Mood: congruent mood Affect: normal affect Exam Narrative Exam Narrative: General: Patient appears appropriate for age and in no acute distress lying comfortably in bed. She is laying on her left side. She has a heating pad over her right hip. pink warm dry and well perfused HEENT: Normocephalic, eyes with pupils equal and reactive light symmetrically, extraocular movement intact and sclera anicteric. Oropharynx with moist mucosa. Neck: Supple without JVD. Lungs: respirations even and unlabored Heart: Regular rate and rhythm, good pulses. Abdomen: round, soft benign Extremities: no edema. Left hip has some discomfort to range of motion but mostly over the sciatic notch. Back is tender to palpation of the lower lumbar spine. Neuro: awake and oriented, no focal deficits. Psych Mental Status: mental status grossly normal Speech and Movement: speech and movement normal Mood: congruent mood Affect: normal affect DS: Data Vitals/I&O Vitals and I&O: Vital Signs Temperature 36.5 C 04/12/20 08:03 Temperature Source Tympanic 04/12/20 08:03 Pulse 64 04/12/20 08:03 Pulse Rhythm Regular 04/12/20 04:33 Respiratory Rate 16 04/12/20 08:03 Respiratory Effort Non-Labored 04/12/20 04:33 Respiratory Depth Normal 04/12/20 04:33 Respiratory Pattern Normal 04/12/20 04:33 Blood Pressure 130/69 04/12/20 08:03 Blood Pressure Position Supine 04/10/20 19:52 Pulse Oximetry 100 04/12/20 08:03 Oxygen Delivery Method Room Air 04/12/20 08:03 Oxygen Flow Rate 0 04/12/20 08:03 Pain Level 2 04/12/20 08:03 Comment 04/11/20 15:50 Intake & Output 04/11/20 04/11/20 04/12/20 11:59 23:59 11:59 Intake Total 650 / 890 240 / 890 Output Total 900 / 900 Balance 650 / -10 -660 / -10 Weight 64.5 kg 64.4 kg Intake: Oral 650 / 890 240 / 890 Output: Urine 900 / 900 Other: Urine Color Straw Yellow Urine Appearance Clear Clear Clear Urine Odor Strong Voiding Methods Bedside Commode Bedside Commode Data Completed and Pending Labs on day of discharge: Labs from last 24 hours 04/11/20 04/11/20 16:00 00:40 Urine Color Yellow Urine Clarity Clear Urine pH 6.0 Ur Specific [place] 1.015 Urine Protein Negative Urine Ketones Negative Urine Blood Negative Urine Nitrite Negative Urine Bilirubin Negative Urine Urobilinogen 0.2 Ur Leukocyte Esterase Negative Urine Glucose 100 COVID-19 PCR Negative Nasopharyn COVID-19 PCR Not Applicable Ref Test Perform Site [facility] lab [facility] Medical History (Updated 04/11/20 @ 06:25 by Palmer Cabello) Chest pain Colon cancer GERD (gastroesophageal reflux disease) Macular degeneration Neutropenia Chronic benign neutropenia, Neupogen recommended prior to all invasive procedures and dental work Surgical History back surgery continues with lumbar pain. Is considering another steroid inj. 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 Colectomy 07/2014. Discovered on colonoscopy. eye surgery cataract repair History of cataract surgery macular degeneration eye surgery Total replacement of hip Right. Family History Mother Lung cancer Brother Heart disease Social History Smoking/Tobacco Use Status: Former Tobacco Use Smoking risk assessment performed?: Yes Alcohol Intake: never Drug use: Never Household members: spouse and other Details: H-Emmanuel. [employer] Rol[employer]. 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
--- NOTE | 2020-04-12 09:15 | PT.INIE ---
Date of service: 04/12/20 Time of Service: 09:15 PT Notes Visit Reasons: ACUTE LUMBAR RADICULAR PAIN Physical Therapy Inpatient Initial Evaluation Date: 04/12/2020 Referring Doctor: Palmer Cabello MD PT Orders: PT CONSULT: Limited ability Precautions: Fall. Standard. Activity as tolerated. Patient Profile/Admitting Diagnosis: Raeann is a 79-year-old female who presented to the ED on 04/10/2020 with deeply concerned about the amount of pain the patient has when ambulating at home. Patient has a diagnosis of back pain with the radiculolopathy, degenerative joint disease, spinal stenosis, foraminal stenosis being L3-L4/L4-L5 nerve root. PMHX: Medical History (Updated 04/11/20 @ 06:25 by Palmer Cabello) Chest pain Colon cancer GERD (gastroesophageal reflux disease) Macular degeneration Neutropenia Chronic benign neutropenia, Neupogen recommended prior to all invasive procedures and dental work Surgical History Back surgery continues with lumbar pain. Is considering another steroid inj. 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 Colectomy 07/2014. Discovered on colonoscopy. Eye surgery Cataract repair History of cataract surgery Macular degeneration eye surgery Total replacement of hip Right Social History/Home Situation: Patient lives with who works during the day. For the past three weeks since Raeann's back symptoms exacerbated, has been preparing her breakfast/brunch before he leaves for work and gets her supper ready after he returns from work. Equipment Owned/DME: Shower chair, FWW, bedside commode Subjective: Raeann states that since her back pain exacerbation three and a half weeks ago, she has learned to adapt to her increasing pain levels at home. She stays in bed most of the day and only gets out of it to use the bedside commode and to do self-care tasks. She states that she is able to do her exercises that her previous PT taught her. She voices that sitting and standingboth put pressure on her back and cause pain to shoot up to 10. She has done physical therapy exercises before but she states that at this point she just would like to wait for her back surgery and hope that she gets good relief from it. She also emphasized that she has supportive neighbors who can help her out if needed. She is agreeable to having HH PT do a safety check at home to make sure fall risk is minimized. Objective: General Observation: L sidelying in bed, add to left lower back and left thigh. NO lines attached. Mental Status: Alert and oriented x 4 Pain: 5/10 at rest, 10/10 in sitting and with weight bearing ROM: Right Upper Extremity: Shoulder Flexion WFL. Shoulder abduction WFL. Elbow flexion WFL. Wrist flexion WFL. Opening and closing of hand WFL. Left Upper Extremity: Shoulder Flexion WFL. Shoulder abduction WFL. Elbow flexion WFL. Wrist flexion WFL. Opening and closing of hand WFL. Right Lower Extremity: Hip flexion WFL. Hip abduction WFL. Knee flexion WFL. Ankle dorsiflexion WFL. Ankle plantarflexion WFL. Left Lower Extremity: Hip flexion WFL. Hip abduction WFL. Knee flexion WFL. Ankle dorsiflexion WFL. Ankle plantarflexion WFL. Strength: Right Upper Extremity: Shoulder flexors 5/5. Shoulder abductors 5/5. Elbow flexors 5/5. Elbow extensors 5/5. Blocker And Polisher strong. Left Upper Extremity: Shoulder flexors 5/5. Shoulder abductors 5/5. Elbow flexors 5/5. Elbow extensors 5/5. Blocker And Polisher strong. Right Lower Extremity: Grossly 4-/5 Left Lower Extremity: Grossly 4-/5 Sensation: Intact as to pain and pressure on bilateral lower extremities. Bed Mobility/Transfers: Rolling independent Supine to sit independent Sit to supine independent Sit to stand independent no AD needed Stand to sit independent no AD needed Bed to chair supervision no AD needed Chair to bed supervision no AD needed Gait: Transfer from bed to bedside commode only. Unable to do anything beyond transfers due to verbalization of 10/10 pain in low back that radiates to B thighs with weight-bearing. Balance: Static Sitting: Normal Dynamic Sitting: Normal Static Standing: Good Dynamic Standing: Fair Special Tests: Mobility Limitations Standardized Measure [facility]-PAC 6 clicks Basic Mobility Inpatient Short Form: Raw Score: 18 CMS Score: 47 deficit Informed Consent/Education: Patient instructed in purpose of PT consult and plan of care. Assessment: Raeann demonstrates decline in transfer and ambulation tasks due to 10/10 pain level from L3-L4/L4-L5 radiculopathy with weight-bearing. She has succumbed to limiting mobility level and has stayed mostly in bed due to fear of increasing her pain level these past three weeks. She hopes to schedule her back surgery the soonest possible time. She declined any further PT services until after her surgery gets done. She will benefit from HH PT visit in order to ensure that home set up is optimal to maximize safety and minimize pain level. Patient presents with clinical signs and symptoms consistent with current/admitting diagnoses that have resulted to mobility limitations, gait instability, generalized weakness, and impairment of motor control as demonstrated by the following impairment level findings: 1. Decreased strength to B LE major muscle groups due mainly to pain 2. Impaired standing balance due to pain 3. Impaired activity tolerance 4. Limitation of joint range of motion in back due to pain 5. Pain in low back worst at 10/10 with WB Impairments are contributing to the following functional limitations: 1. Inability to safely ambulate due to increase in pain level to 10/10 in low back area and B thighs 2. Increase completion time for mobility ADL performance 3. Increased fall risk Patient is assessed as a 97834 high complexity based on the following: History: 79-year-old female with impairment level findings, functional limitations, and past medical history as indicated above Examination: Demonstrable impairment in strength, balance, and mobility level with underlying impairments and functional limitations as documented above Presentation:Evolving Decision Makin high complexity Goals: N/A. PT evaluation only. Plan of Care/Treatment Plan: N/A. PT evaluation only. DISCHARGE RECOMMENDATIONS: Patient will benefit from home health PT services in order to progress mobility level using least restrictive assistive ambulatory device, assess home safety, identify additional equipment needs, and establish a functional maintenance program that will increase ability of patient to remain at home. No equipment needs at this time. TREATMENT CODE/TIME: 59039 x 30 minutes beginning at 9:15 AM. Thank you for the opportunity to participate in the care of this patient. Marlyn Godoy PT, DPT, CLT [facility] [place], [place]
--- NOTE | 2020-04-12 10:31 | PDOC.HHF2F ---
Home Health Certification Home Health Certification: 1. Encounter Date and Reason I certify that KATELYNN GUDINO was seen by Rosemary Shah on 04/12/20 and that I had a [id number] encounter with this patient that meets the physician face to face encounter requirements. 2. Clinical Findings Supporting Skilled Need and Homebound Status I certify that home health services are medically necessary, include either intermittent prison and/or physical/speech therapy, and that this patient is homebound in that absences from the home require considerable and taxing effort and are infrequent or of short duration, or are attributable to the need to receive medical care. [X] (a) Attached documentation from encounter provides clinical findings supporting skilled need and homebound status (including what assistance patient requires to leave the home). The encounter with the patient was in whole, or in part, for the following medical condition, which is the primary reason for home health care: ACUTE LUMBAR RADICULAR PAIN Physical Therapy: routine evaluation and treatment Homebound: patient unable to leave home without assistance and ambulation is severely limited due to pain, decreased strength and endurance. 3. Certification and Authentication I certify that I composed the above information based on my clinical judgment relating to this patient's medical condition and, if applicable, clinical findings communicated to me by the NPP or inpatient physician who performed the Home Health Referral. All further orders will be obtained through (Community Based Physician - PCP)
[2020-04-12] MEDS: Lidocaine Patch Removal 1 EACH TD (10:39)
[2020-04-12 11:28] VITALS: BP 143/67; PULSE 71; RESP 18; TEMP 36.5; O2SAT 99
[2020-04-12] MEDS: HYDROmorphone 2 MG TAB PO (12:40)
[2020-04-12] MEDS: Acetaminophen 325 MG TAB 650 MG PO (12:40)
--- NOTE | 2020-04-12 13:29 | PDOC.CMDIS ---
LACE Index Scoring Tool - Questions: Length of Stay (in days): 2 Acuity (Admit via E.D.?): Yes Comorbidities: Any Tumor E.D. Visits: 3 - Answers: Total Score: 10 Risk of Readmission: High Risk Care Management Discharge Reason for Hospitalization: Acute lumbar radicular pain Discharge Plan: Raeann will return home when ready per MD. She will follow up with her PCP and plan of care as prescribed. She will transport via private vehicle with family or a friend. Patient/Family Education Needs: Review discharge instructions, outpatient status, community based supports. Discuss self care needs upon discharge Ask Me Three. Services Needed at Discharge: Home Health Care Services (New PT )
--- NOTE | 2020-04-12 15:08 | CHAPLAIN ---
Raeann was in bed, resting on her side, her one comfortable position she said, when I visited. She said she is being discharged today because she can do this at home. Although she is often home alone as her , Emmanuel, works long hours as an employee benefits attorney. Raeann said she has neighbors who check in on her, and she is grateful for that. She misses seeing her grandchildren. Raeann said she is hopeful that her back surgery will be scheduled soon. Raeann is Anglican, and is from [place] originally but has been in [facility] since . At one time she was connected to the the [facility] [employer] in [facility], but she said it is not as traditional as she is used to.
== END 2020-04-12 13:28 | disposition home or self-care (01) ==
LOC: ER 23:56 → MS 04-11 01:01
PROVIDERS: Family Medicine; Admitting Provider Family Medicine; Emergency Provider Emergency Medicine; PCP Family Medicine; Visit Provider Family Medicine
DX: M51.16 Intervertebral disc disorders with radiculopathy, lumbar region (principal); M48.061 Spinal stenosis, lumbar region without neurogenic claudication; K21.9 Gastro-esophageal reflux disease without esophagitis; D70.8 Other neutropenia; H35.30 Unspecified macular degeneration; Z85.038 Personal history of other malignant neoplasm of large intestine
CPT/HCPCS: 36415; 80053; 97163; 99217; 99219; 99226; 99285; U0003; 81003; 85025; 99284; G0378; J1644; J3490; J7512

== ENCOUNTER 2020-04-14 12:03 | Outpatient (REF) | payer MEDICARE, SELFPAY ==
[2020-04-16 16:39] LABS: COVID-19 RT-PCR Result NEGATIVE (Negative)
== END 2020-04-14 12:23 ==
LOC: NCHCN 12:03
PROVIDERS: PCP Family Medicine; Visit Provider Nurse Practitioner Family
DX: Z11.59 Encounter for screening for other viral diseases (principal); Z01.818 Encounter for other preprocedural examination
CPT/HCPCS: U0003

== ENCOUNTER 2020-04-17 01:44 | Outpatient (RCR) | payer MEDICARE, SELFPAY | END 2020-05-12 23:59 | disposition home or self-care (01) | LOC: INF 01:44 | PROVIDERS: PCP Family Medicine; Visit Provider Family Medicine | DX: D70.8 Other neutropenia | CPT/HCPCS: 96372 ==

== ENCOUNTER 2020-05-19 00:55 | Outpatient (CLI) | payer MEDICARE, SELFPAY ==
--- NOTE | 2020-05-19 | DI.RAD_ITS ---
EXAM: XR LUMBAR SPINE 1V ONLY CLINICAL HISTORY: S/P L3-5 DECOMPRESSION WITH FUSION,Z98.1. TECHNIQUE: 2D digital imaging was performed. COMPARISON: MR MR LUMBAR SPINE WO from 04/04/2020 MR MR LUMBAR SPINE WO from 04/04/2020 FINDINGS: There is now to tri level fusion L3-L4-L5 with posterior fusion rods and intrapedicular screws at the se levels. Also disc space divided is evident at the L3-4 and L4-5 levels. There is mild-moderate d isc space narrowing evident at L5-S1 level. The intervertebral disc space device at L3-4 is flush with the posterior cortex of L3. There is mild anterolisthesis L3 upon L4. At L4-5 level the disc space divide or extends slightly posterior to the posterior cortex L4, possibl y significant. There is also an element of anterolisthesis of L4 upon L5 noted. IMPRESSION: Hardware description as above. The inter vertebral disc space divide ower at L4-5 level posterior as pect is slightly posterior to the posterior cortex of L4. Possibly significant. DATA REPOSITORY: RADIATION DOSE DELIVERED:
== END 2020-05-19 01:15 ==
PROVIDERS: PCP Family Medicine; Visit Provider Neurological Surgery
DX: Z98.1 Arthrodesis status (principal)
CPT/HCPCS: 72020

== ENCOUNTER 2020-05-31 10:38 | Emergency (ER) | payer MEDICARE, SELFPAY ==
[2020-05-31] VITALS (50 sets, daily range): BP systolic 105–153; BP diastolic 63–87; PULSE 64–86; RESP 7–28; TEMP 36.2; O2SAT 92–99
--- NOTE | 2020-05-31 10:30 | RT.EKG_ITS ---
APPROVED REPORT Exam: Resting ECG Patient Location: E HR:73 bpm ECG Measurements Heart Rate 73 AXIS MD 145 P 65 QRSd 78 QRS -21 QT 364 T 29 QTc 403 Conclusion Sinus rhythm...normal P axis, V-rate 60- 99 Probable left atrial enlargement...P >50mS, <-0.10mV V1 Inferior infarct, old...Q >35mS, II III aVF 1mm ST depression in V3-6. No STEMI. I have reviewed and interpreted ECG and agree with software generated interpretation.
--- NOTE | 2020-05-31 10:45 | DI.CT_ITS ---
EXAM: CT CHEST PE CTA CLINICAL HISTORY: Chest pain, R/O PE. TECHNIQUE: Imaging Protocol: Axial CT angiography was performed with multi-slice acquisition and mu lti-planar and/or 3D reconstructions. CONTRAST MATERIAL: Intravenous: Omnipaque 350 Contrast volume:100 mL COMPARISON: CR THORACIC SPINE from 10/08/[address] CHEST PE CTA from 08/30/2019 FINDINGS: Tracheobronchial tree: Patent where visualized. Pulmonary parenchyma: No consolidation or dominant measurable mass. There is a stable left lingular n odule. Dependent atelectasis is seen in the lung bases. Pulmonary Arteries: No evidence of filling defect to suggest pulmonary emboli. Mediastinum and Leonarda: No dominant adenopathy or fluid collection. Visualized thyroid gland: There has been no change in the 2.1 cm nodule associated with the left lobe of the thyroid gland. Pleura: No effusion or pneumothorax. Heart: The heart is not dilated. No coronary artery calcifications are seen. No pericardial effusion. Aorta: Thoracic aorta non-dilated. Atherosclerosis. No evidence of dissection. Upper abdomen: Unremarkable. Soft tissues: Unremarkable. Bones: Posterior spinal rods are seen in the lumbar spine. Degenerative changes are seen in the spin e.The intramedullary lesion seen in the proximal left humerus is unchanged and likely reflects a johan gn lesion such as a enchondroma. IMPRESSION: No evidence of pulmonary embolism, thoracic aortic dissection or aneurysm. Findings were discussed with the emergency department on the date of the examination. RADIATION DOSE DELIVERED: 393.41mGy.cm Total DLP DATA REPOSITORY: All CT scans at this facility are submitted to the National Radiology Data Registry (NRDR) Dose Index Registry (DIR) with the [employer] (A[employer]). RADIATION OPTIMIZATION: All CT scans at this facility use at least one of these dose optimization te chniques: automated exposure control; mA and/or kV adjustment per patient size (includes targeted exa ms where dose is matched to clinical indication); or iterative reconstruction.
--- NOTE | 2020-05-31 10:48 | ED.GENADUL_ITS ---
Discharge Plan Disposition Patient Disposition: HOME Condition: Stable Discharge Details Clinical Impression: Chest pain Primary Care Provider: Nimo Burk V ED Provider: Adrienne Quintero Home Meds and New Rx's Prescriptions: Continued levalbuterol tartrate [Xopenex HFA] 15 GM HFA aerosol inhaler 15 gm Inhalation Q6H PRN PRNRF: 0 cholecalciferol (vitamin D3) [Vitamin D3] 2,000 UNIT capsule 2,000 unit PO BID RF: 0 bupropion HCl 150 MG tablet extended release 12 hr 150 mg PO BID RF: 0 trazodone 50 MG tablet 50 mg PO HS RF: 0 aspirin [Aspir-81] 81 MG tablet,delayed release (DR/EC) 81 mg PO DAILY RF: 0 calcium carbonate [Calcium 500] 500 MG tablet 500 mg PO DAILY AM RF: 0 nitroglycerin [Nitrostat] 0.4 mg Tablet, Sublingual 0.4 mg sublingual PRN PRNRF: 0 fexofenadine 180 mg tablet 180 mg PO DAILY RF: 0 polyethylene glycol 3350 17 gram Powder In Packet 17 g PO DAILY PRN PRN (Reason: Constipation) Qty: 0 RF: 0 docusate sodium [Colace] 100 mg Capsule 100 mg PO TID PRN PRNQty: 0 RF: 0 ibuprofen [IBU] 600 mg Tablet 600 mg PO Q8H Qty: 30 RF: 0 acetaminophen [Tylenol] 325 mg Tablet 650 mg PO Q4H PRN PRNQty: 0 RF: 0 Discharge Instructions Instructions: Chest Pain (ED) Additional Instructions: You had a negative cardiac work-up today including a chest CT which all is within normal limits. I did offer admission at this time which was declined. I do encourage and recommend an outpatient stress test to rule out cardiac etiology. Will be referred for this test. Please return to the ED for any worsening pain or discomfort in your chest. Follow up with primary care provider in 3-5 days. Return to ED sooner if any worsening or concerns. Increase oral fluids. Please take a chewable baby aspirin daily. Referrals: Nimo Burk MD [Primary Care Provider] - Palmer Sierra MD [MD CONSULTING PHYSICIAN] - Discharge Data Discharge Date/Time-TO BE ENTERED AT DEPARTURE: 05/31/20 14:48 Medical Decision Making 79-year-old female presents to ED with chief complaint of chest heaviness and pain that radiates down to her left arm which began last night. She report diaphoresis associated with discomfort. She rates it a 5 out of 10 upon arrival describes it as pressure or heaviness. Denies any shortness of breath or cough. She denies any lower extremity swelling. No vomiting or nausea. She does also endorse having constipation. She did use an enema at home last week. She did take a 81 mg baby aspirin last night none this morning. She recently had back surgery approximately 1 month ago has a history of colon cancer, GERD, neutropenia, total hip replacement. She was admitted in August 2019 for chest pain and had a negative MPI study with negative serial troponins. EKG was reviewed by Dr. Deena Barrera MD ER attending, please see her official read and report, [address] depression in leads V3 through 6 no STEMI. Old EKG was available for review. At this time work-up ordered including CBC, CMP, serial troponins, 324 mg of chewable baby aspirin, nitroglycerin 0.4 mg sublingual x3 as needed chest pain, CT chest rule out PE. 1120: Patient received 2 0.4mg SL nitro without relief of chest discomfort. 1248: CT chest negative, patient sleeping at this time, breathing eupneic, repeat Trop scheduled for draw at 1340. Will discuss with patient option for admission for chest pain. EXAM: CT CHEST PE CTA CLINICAL HISTORY: Chest pain, R/O PE. TECHNIQUE: Imaging Protocol: Axial CT angiography was performed with multi- slice acquisition and multi-planar and/or 3D reconstructions. CONTRAST MATERIAL: Intravenous: Omnipaque 350 Contrast volume:100 mL COMPARISON: CR THORACIC SPINE from 10/08/[address] CHEST PE CTA from 08/30/2019 FINDINGS: Tracheobronchial tree: Patent where visualized. Pulmonary parenchyma: No consolidation or dominant measurable mass. There is a stable left lingular nodule. Dependent atelectasis is seen in the lung bases. Pulmonary Arteries: No evidence of filling defect to suggest pulmonary emboli. Mediastinum and Leonarda: No dominant adenopathy or fluid collection. Visualized thyroid gland: There has been no change in the 2.1 cm nodule associated with the left lobe of the thyroid gland. Pleura: No effusion or pneumothorax. Heart: The heart is not dilated. No coronary artery calcifications are seen. No pericardial effusion. Aorta: Thoracic aorta non-dilated. Atherosclerosis. No evidence of dissection. Upper abdomen: Unremarkable. Soft tissues: Unremarkable. Bones: Posterior spinal rods are seen in the lumbar spine. Degenerative changes are seen in the spine.The intramedullary lesion seen in the proximal left humerus is unchanged and likely reflects a benign lesion such as a enchondroma. IMPRESSION: No evidence of pulmonary embolism, thoracic aortic dissection or aneurysm. Findings were discussed with the emergency department on the date of the examination. 1321: Discussed option for admission with patient who declines at this time. She states that she would rather follow-up with a stress test as an outpatient. At this time pending repeat negative serial troponin I do feel that this is appropriate. Patient states that the discomfort in her chest was still there and unchanged. We are pending a second troponin and repeat EKG. Repeat troponin and EKG are within normal limits and unchanged. Again discussed option for admission versus discharge with outpatient stress test. At this time patient is still wanting to be discharged home. Outpatient stress test ordered and discuss strict return instructions. HPI General Mode of arrival: ambulatory . Date/Time Provider Initiated Documentation: 05/31/20 10:39 . Limitations to Documentation: no limitations . Information obtained by: patient . HPI Narrative: 79-year-old female presents to ED with chief complaint of chest heaviness and pain that radiates down to her left arm which began last night. She report diaphoresis associated with discomfort. She rates it a 5 out of 10 upon arrival describes it as pressure or heaviness. Denies any shortness of breath or cough. She denies any lower extremity swelling. No vomiting or nausea. She does also endorse having constipation. She did use an enema at home last week. She did take a 81 mg baby aspirin last night none this morning. She recently had back surgery approximately 1 month ago has a history of colon cancer, GERD, neutropenia, total hip replacement. She was admitted in August 2019 for chest pain and had a negative MPI study with negative serial troponins. Related Data Home Medications Medication Instructions Recorded Confirmed aspirin [Aspir-81] 81 mg PO DAILY 06/07/13 05/31/20 bupropion HCl 150 mg PO BID 06/07/13 05/31/20 calcium carbonate [Calcium 500] 500 mg PO DAILY AM 06/07/13 05/31/20 trazodone 50 mg PO HS 06/07/13 05/31/20 cholecalciferol (vitamin D3) 2,000 unit PO BID 06/12/17 05/31/20 [Vitamin D3] levalbuterol tartrate [Xopenex HFA] 15 gm INHALATION Q6H PRN PRN 06/12/17 05/31/20 inhaler nitroglycerin [Nitrostat] 0.4 mg SUBLINGUAL PRN PRN 08/30/19 05/31/20 fexofenadine 180 mg PO DAILY 04/11/20 05/31/20 acetaminophen [Tylenol] 650 mg PO Q4H PRN PRN #0 tab 04/12/20 05/31/20 docusate sodium [Colace] 100 mg PO TID PRN PRN #0 cap 04/12/20 05/31/20 ibuprofen [IBU] 600 mg PO Q8H #30 tab 04/12/20 05/31/20 polyethylene glycol 3350 17 g PO DAILY PRN PRN #0 ea 04/12/20 05/31/20 Previous Rx's Medication Instructions Recorded acetaminophen [Tylenol] 650 mg PO Q4H PRN PRN #0 tab 04/12/20 docusate sodium [Colace] 100 mg PO TID PRN PRN #0 cap 04/12/20 ibuprofen [IBU] 600 mg PO Q8H #30 tab 04/12/20 polyethylene glycol 3350 17 g PO DAILY PRN PRN #0 ea 04/12/20 Allergies Allergy/AdvReac Type Severity Reaction Status Date / Time Penicillins Allergy Severe swelling Unverified 04/10/20 21:54 Sulfa (Sulfonamide Allergy Unknown Unverified 04/10/20 21:54 Antibiotics) diazepam [From Valium] AdvReac Severe it sent me Unverified 04/10/20 21:54 on a trip propoxyphene HCl AdvReac Severe sent me on Unverified 04/10/20 21:54 [From [place]von] a trip General Stated Complaint: Chest Pain MELISSA: 2 Review of Systems Narrative: Constitutional: Negative for weight loss, alert and oriented, well groomed, normal body habitus, appears comfortable. HEENT: Denies trauma, headaches, blurry vision, nasal discharge, sore throat, trouble swallowing. Chest: Denies palpitations, irregular rhythm, hypertension. Positive chest heaviness with radiation into her left arm. Respiratory: Denies Shortness of breath, cough, hemoptysis. GI: Denies abdominal pain, nausea, vomiting, diarrhea, positive constipation. : Denies dysuria, hematuria, flank pain, rectal bleeding. Neuro: Denies dizziness, blurry vision, weakness, syncope, headache or facial numbness. Hematologic: Denies easy bruising, intolerance to heat or cold, hair loss. [facility] Medical History Chest pain Colon cancer GERD (gastroesophageal reflux disease) Macular degeneration Neutropenia Chronic benign neutropenia, Neupogen recommended prior to all invasive procedures and dental work Surgical History back surgery continues with lumbar pain. Is considering another steroid inj. 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 Colectomy 07/2014. Discovered on colonoscopy. eye surgery cataract repair History of cataract surgery macular degeneration eye surgery Total replacement of hip Right. 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 Appears stated age. Normal body habitus. Head: Normocephalic, no trauma. Eyes: Pupils PERRLA, Red reflex noted, EOM's intact. Eyelids symmetrical without lesions, discharge, or swelling. ENT: Bilateral TM's WNL, External ear normal to inspection, no mastoid TTP, swelling, or erythema, Nasal turbinates WNL, no nasal discharge. Normal dentition, Posterior pharynx WNL, no exudate. Chest: RRR, Normal S1, S2, distal pulses intact. Resp: Lungs clear to auscultation bilaterally, no wheezes, rales, or rhonchi. Musculoskeletal: Normal gait, 5/5 strength to all four extremities. Skin: No suspicious rashes or lesions. Capillary refill less than 2 sec. Neurologic: Cranial nerves II-XII intact. Alert and oriented x 3. DTR's intact. Hematologic/Lymphatic: No ecchymosis, no lymphadenopathy. Course Vital Signs Vital signs: Vital Signs Temperature 36.2 C L 05/31/20 10:45 Pulse 76 05/31/20 10:45 Respiratory Rate 13 05/31/20 10:45 Blood Pressure 153/87 H 05/31/20 10:45 Pulse Oximetry 99 05/31/20 10:45 Temperature 36.2 C L 05/31/20 10:45 Temperature Source Temporal Artery Scan 05/31/20 10:45 Pulse 76 05/31/20 10:45 Respiratory Rate 13 05/31/20 10:45 Blood Pressure 153/87 H 05/31/20 10:45 Blood Pressure Position Supine 05/31/20 10:45 Pulse Oximetry 99 05/31/20 10:45 Oxygen Delivery Method Room Air 05/31/20 10:45 Oxygen Flow Rate 0 05/31/20 10:45
[2020-05-31 10:58] LABS: Absolute Basophil Count 0.04 10^3/uL (0.0-0.2); Absolute Lymphocyte Count 2.03 10^3/uL (1.2-3.4); Basophils % 1.3; Eosinophils % 3.4; HCT 39.3 % (36.0-46.0); HGB 12.3 g/dL (11.2-15.7); Lymphocytes % 68.1; MCHC 31.3 % (32.0-36.0); MCV 86.2 fL (80-95); MPV 8.5 fL (8.0-11.0); Monocytes % 16.8; Neutrophils % 10.4; Nucleated RBC 0 %; Platelet Count 319 10^3/uL (130-400); RBC 4.56 10^6/uL (3.93-5.22); RDW 15.5 % (11.7-14.6); RDW-SD 49.2 fL; WBC 2.98 10^3/uL (4.4-10.8)
[2020-05-31] MEDS: Aspirin 81 MG CHEW 324 MG CH (11:01)
[2020-05-31] MEDS: nitroGLYcerin 0.4 MG TAB SL ×2 (11:03→11:13)
[2020-05-31] MEDS: Normal Saline 1,000 ML 150 ML IV (11:12)
[2020-05-31 11:15] LABS: ALT 18 U/L (14-59); AST 15 U/L (15-37); Albumin 3.6 g/dL (3.4-5.0); Alkaline Phosphatase 142 U/L (46-116); Anion Gap 7.3 mmol/L (3-11); BUN 18 mg/dL (7-18); Bilirubin, Total 0.3 mg/dL (0.2-1.0); CO2 27.7 mmol/L (21.0-32.0); CREATININE 1.05 mg/dL (0.55-1.02); Calcium 9.5 mg/dL (8.5-10.1); Chloride 103 mmol/L (98-107); Estimated GFR 50.82 (mL/min/1.73m2); Glucose 99 mg/dL (74-106); Magnesium 2.1 mg/dL (1.8-2.4); Potassium 3.7 mmol/L (3.5-5.1); Sodium 138 mmol/L (136-145); Total Protein 7.4 g/dL (6.4-8.2)
[2020-05-31 11:18] LABS: Troponin I < 0.05 ng/mL (<0.06)
[2020-05-31 11:39] LABS: Diff Comment Agrees w/ Instrument; RBC Morphology Normal
[2020-05-31 11:40] LABS: Absolute Neutrophil Count 0.31 10^3/uL (1.2-6.7)
[2020-05-31] MEDS: Omnipaque 350 MG/ML 100 ML BTL IJ (11:42)
[2020-05-31] MEDS: Normal Saline - Diluent 50 ML VIAL IV (11:43)
--- NOTE | 2020-05-31 13:45 | RT.EKG_ITS ---
APPROVED REPORT Exam: Resting ECG Patient Location: E HR:66 bpm ECG Measurements Heart Rate 66 AXIS NE 164 P 62 QRSd 77 QRS -13 QT 384 T 29 QTc 404 Conclusion Sinus rhythm...normal P axis, V-rate 60- 99 I have reviewed and interpreted ECG and agree with software generated interpretation.
[2020-05-31 14:03] LABS: Troponin I < 0.05 ng/mL (<0.06)
== END 2020-05-31 14:48 | disposition home or self-care (01) ==
PROVIDERS: Emergency Provider Registered Nurse Emergency; PCP Family Medicine
DX: R07.89 Other chest pain (principal); K21.9 Gastro-esophageal reflux disease without esophagitis
CPT/HCPCS: 36415; 71275; 80053; 93005; 96360; 96361; 99285; 83735; 84484; 85025; 93010; J3490

== ENCOUNTER 2020-06-01 03:45 | Outpatient (CLI) | payer MEDICARE, SELFPAY ==
[2020-06-02 18:27] LABS: COVID-19 RT-PCR Result NEGATIVE (Negative)
== END 2020-06-01 04:05 ==
PROVIDERS: PCP Family Medicine; Visit Provider Family Medicine
DX: Z11.52 Encounter for screening for COVID-19 (principal); Z01.810 Encounter for preprocedural cardiovascular examination
CPT/HCPCS: U0003

== ENCOUNTER 2020-06-01 20:59 | Outpatient (REF) | payer MEDICARE, SELFPAY ==
[2020-06-01 22:29] LABS: CEA 0.8 ng/mL (See Note)
== END 2020-06-01 21:19 ==
LOC: NCHCN 20:59
PROVIDERS: PCP Family Medicine; Visit Provider Family Medicine
DX: C18.9 Malignant neoplasm of colon, unspecified (principal)
CPT/HCPCS: 82378

== ENCOUNTER 2020-06-03 03:48 | Outpatient (CLI) | payer MEDICARE, SELFPAY ==
--- NOTE | 2020-06-03 13:00 | ETT_ITS ---
APPROVED REPORT Exam: Exercise Treadmill Patient Location: Out-Patient Room/Bed: Stress Nurse: Hoda Zhang RN Ordering Provider:MARILIN MORRISON, Contact Number: [phone] BMI: 24.87 Baseline Rhythm: Sinus Rhythm Indications: Chest pain. Patient presented to the ER on 05/31/20 with c/o 5/10 chest heaviness radiati ng down left arm. Medical History Medical History: Asthma, Heart murmur, Colon cancer, GERD, Back surgery 6 weeks ago. Cardiac Medications: Albuterol inhaler, Aspirin, Nitroglycerin SL PRN. Allergies: Penicillins, Sulfa, Valium Cardiac Risk Factors: FHX of CAD, Asthma, Smoking (former) Previous Cardiac Procedures: None. Pretest Chest Pain Characteristics: None. Reports persistant discomfort in left arm. Exercise History: Sedentary Physical Disabilities: Back Lung Sounds: Clear to auscultation Heart Sounds: Regular Stress Test Details Test: Exercise stress testing was performed using a Presley protocol. Rest Stress HR Resting HR Supine: 81 bpm Max Heart Rate (APMHR): 143 bpm Resting HR Standin bpm Target HR (85% APMHR): 121 bpm Max HR Achieved: 143 bpm % of APMHR: 100 Recovery HR: 85 bpm HR response to stress: Normal HR response to stress BP Resting BP Supine: 118/70 mmHg Resting BP Standin/68 mmHg Max BP: 160/68 mmHg Recovery BP: 128/76 mmHg BP response to stress: Normal blood pressure response to stress. ECG Resting ECG: Sinus Rhythm Ectopy: None. Stress ECG: Sinus Tachycardia ST Change: No significant ST segment changes noted Arrhythmia: None Recovery ECG: Sinus Rhythm Recovery ST Change: No significant ST segment changes noted Recovery Arrhythmia: None Clinical Reason for Termination: Dyspnea Stress Symptoms: Dyspnea Exercise duration: 4 min51 sec Highest Stage Reached: Stage 2: 2.5 mph at 12% grade. Exercise capacity: 7 METs Morris Treadmill Score: 4.6 Rate Pressure Product: [id number] Stress ECG Conclusion 1. Resting electrocardiogram was normal 2. Patient exercised on the Presley protocol and completed a workload of 7 METS, completing 4 minutes a nd 51 seconds of exercise limited by shortness of breath 3. Normal hemodynamic response to exercise 4. Electrocardiographically negative for myocardial ischemia. The patient achieved 100% of predicted heart rate for age 5. There were no significant dysrhythmias Morris Treadmill Score is 4.6 which is Moderate risk. Stress Test Summary STAGE Time (mins) Speed (mph) Grade (%) HR BP SYMPTOMS METS Supine 81 118/70 Standing 105 122/68 1 3 1.7 10 132 152/78 Dyspnea. SpO2 94% 4.6 2 6 2.5 12 143 Inhaler used. 7 1 min recovery 132 160/68 SpO2 91% 3 min recovery 90 158/78 Dyspnea resolved. SpO2 96% 6 min recovery 85 128/76
== END 2020-06-03 04:08 ==
PROVIDERS: PCP Family Medicine; Visit Provider Registered Nurse Emergency
DX: R07.9 Chest pain, unspecified (principal); Z82.49 Family history of ischemic heart disease and other diseases of the circulatory system; J45.909 Unspecified asthma, uncomplicated; Z87.891 Personal history of nicotine dependence
CPT/HCPCS: 93016; 93018; 93017

== ENCOUNTER 2020-07-13 01:01 | Outpatient (CLI) | payer MEDICARE, SELFPAY ==
--- NOTE | 2020-07-13 | DI.RAD_ITS ---
EXAM: XR LUMBAR SPINE AP, LAT CLINICAL HISTORY: S/P LUMBAR FUSION,Z98.1. TECHNIQUE: 2D digital imaging was performed. COMPARISON: CR,XR XR KNEE LT 3V AP,LAT,JAIME from 04/03/2020 CR XR LUMBAR SPINE 1V ONLY from 05/19/2020 FINDINGS: There are 5 lumbar type vertebral bodies. There are stable postsurgical changes at L3, L4 and L5. T he orthopedic hardware appears intact and stable in position. There is persistent mild anterolisthes is of L3 on L4 and L4 on L5 which appears stable. Multilevel degenerative changes are seen in the corey mbar spine. No acute fracture or subluxation is present. There is a mild S-type scoliotic curvature of the thoracolumbar spine. Findings of a prior right hip prosthesis is noted. IMPRESSION: No change in appearance of the lumbar spine since 05/19/2020. DATA REPOSITORY: RADIATION DOSE DELIVERED:
== END 2020-07-13 01:21 ==
PROVIDERS: PCP Family Medicine; Visit Provider Neurological Surgery
DX: Z98.1 Arthrodesis status (principal); M51.36 Other intervertebral disc degeneration, lumbar region
CPT/HCPCS: 72100

== ENCOUNTER 2020-07-22 16:22 | Outpatient (REF) | payer MEDICARE, SELFPAY ==
[2020-07-22 18:34] LABS: Absolute Basophil Count 0.04 10^3/uL (0.0-0.2); Absolute Eosinophil Count 0.07 10^3/uL (0.0-0.7); Absolute Lymphocyte Count 1.86 10^3/uL (1.2-3.4); Absolute Monocyte Count 0.49 10^3/uL (0.1-0.8); Basophils % 1.4; Eosinophils % 2.5; HCT 39.3 % (36.0-46.0); HGB 12.4 g/dL (11.2-15.7); MCH 26.7 pg (27.0-33.0); MCHC 31.6 % (32.0-36.0); MCV 84.7 fL (80-95); MPV 8.9 fL (8.0-11.0); Monocytes % 17.4; Neutrophils % 12.7; Nucleated RBC 0 %; Platelet Count 323 10^3/uL (130-400); RBC 4.64 10^6/uL (3.93-5.22); RDW-SD 50.4 fL; WBC 2.82 10^3/uL (4.4-10.8)
[2020-07-22 19:08] LABS: ALT 30 U/L (14-59); AST 21 U/L (15-37); Albumin 3.5 g/dL (3.4-5.0); Alkaline Phosphatase 137 U/L (46-116); Anion Gap 9.5 mmol/L (3-11); BUN 23 mg/dL (7-18); Bilirubin, Total 0.3 mg/dL (0.2-1.0); CO2 26.5 mmol/L (21.0-32.0); Calcium 9.4 mg/dL (8.5-10.1); Chloride 103 mmol/L (98-107); Estimated GFR 53.76 (mL/min/1.73m2); Glucose 93 mg/dL (74-106); Potassium 4.3 mmol/L (3.5-5.1); Sodium 139 mmol/L (136-145); TSH (W/Ref FT4) 0.36 uIU/mL (0.36-3.74); Total Protein 6.8 g/dL (6.4-8.2)
[2020-07-22 19:18] LABS: Absolute Neutrophil Count 0.36 10^3/uL (1.2-6.7)
[2020-07-22 19:19] LABS: Diff Comment Diff Reviewed; RBC Morphology Normal
== END 2020-07-22 16:23 | disposition home or self-care (01) ==
LOC: NCHCN 16:22
PROVIDERS: PCP Family Medicine; Visit Provider Family Medicine
DX: E04.1 Nontoxic single thyroid nodule (principal); D70.9 Neutropenia, unspecified; C18.9 Malignant neoplasm of colon, unspecified
CPT/HCPCS: 80053; 84443; 85025

== ENCOUNTER 2020-12-05 21:46 | Emergency (ER) | payer MEDICARE, SELFPAY ==
[2020-12-05] VITALS (12 sets, daily range): BP systolic 96–157; BP diastolic 58–73; PULSE 65–77; RESP 12–22; TEMP 36.7; O2SAT 89–98
--- NOTE | 2020-12-05 21:45 | DI.RAD_ITS ---
Exam(s) XR CHEST 2V PA LATERAL EXAM: XR CHEST 2V PA LATERAL CLINICAL HISTORY: Chest Pain TECHNIQUE: 2D digital imaging was performed. COMPARISON: No exams were available for comparison FINDINGS: MEDIASTINUM: Normal. HEART: Normal. PULMONARY VASCULATURE: Normal. LUNGS: Clear. PLEURAL SPACE: No pleural effusion or pneumothorax. BONE:Within normal limits for the patient's age. OTHER FINDINGS:Normal. IMPRESSION: No acute pulmonary findings. DATA REPOSITORY: RADIATION DOSE DELIVERED:
--- NOTE | 2020-12-05 21:45 | RT.EKG_ITS ---
APPROVED REPORT Exam: Resting ECG Reason for Exam: pain Patient Location: E HR:62 bpm ECG Measurements Heart Rate 62 AXIS CA 160 P 64 QRSd 82 QRS 13 QT 401 T 32 QTc 408 Conclusion Sinus rhythm...normal P axis, V-rate 60- 99 Probable left atrial enlargement...P >50mS, <-0.10mV V1 Physician: no stemi
--- NOTE | 2020-12-05 22:03 | W.ED.GENAD ---
Discharge Plan Disposition Patient Disposition: HOME Condition: Improving Discharge Details Clinical Impression: GERD (gastroesophageal reflux disease) Primary Care Provider: Nimo Burk V ED Provider: Adrienne Quintero Home Meds and New Rx's Prescriptions: New sucralfate [Carafate] 1 gram tablet 1 g PO QACHS PRN (Reason: acid reflux) Qty: 20 RF: 0 No Action levalbuterol tartrate [Xopenex HFA] 15 GM HFA aerosol inhaler 15 gm Inhalation Q6H PRN PRNRF: 0 cholecalciferol (vitamin D3) [Vitamin D3] 2,000 UNIT capsule 2,000 unit PO BID RF: 0 bupropion HCl 150 MG tablet extended release 12 hr 150 mg PO BID RF: 0 trazodone 50 MG tablet 50 mg PO HS RF: 0 aspirin [Aspir-81] 81 MG tablet,delayed release (DR/EC) 81 mg PO DAILY RF: 0 calcium carbonate [Calcium 500] 500 MG tablet 500 mg PO DAILY AM RF: 0 nitroglycerin [Nitrostat] 0.4 mg Tablet, Sublingual 0.4 mg sublingual PRN PRNRF: 0 fexofenadine 180 mg tablet 180 mg PO DAILY RF: 0 polyethylene glycol 3350 17 gram Powder In Packet 17 g PO DAILY PRN PRN (Reason: Constipation) Qty: 0 RF: 0 docusate sodium [Colace] 100 mg Capsule 100 mg PO TID PRN PRNQty: 0 RF: 0 ibuprofen [IBU] 600 mg Tablet 600 mg PO Q8H Qty: 30 RF: 0 acetaminophen [Tylenol] 325 mg Tablet 650 mg PO Q4H PRN PRNQty: 0 RF: 0 Discharge Instructions Instructions: GERD (Gastroesophageal Reflux Disease) (ED) Additional Instructions: Please consider taking Pepcid (Famotadine) or Prilosec (omeprazole) Daily for 7-14 days to see if this improves your symptoms. Follow up with primary care provider in 3-5 days. Return to ED sooner if any worsening or concerns. Increase oral fluids such as water. Small frequent meals stay away from anything spicy, fried fatty or foods that seem to cause increased reflux. Use Carafate as needed also as this coats the stomach and can protect the stomach lining. Return for chest pain, SOB, weakness, fever. Referrals: Nimo Burk MD [Primary Care Provider] - Discharge Data Discharge Date/Time-TO BE ENTERED AT DEPARTURE: 12/06/20 00:10 Medical Decision Making 80-year-old female with a past medical history of colon cancer, , GERD presents to the ER with chief complaint of heartburn. Patient reports that she has had burning sensation from her midepigastrium up into her mid substernal chest associated with burping for the last 3 days. Denies anything making it better or worse denies any association with food. Denies any radiation into her back. Denies any abdominal pain or any other associated symptoms. She had a normal stress test in May of this year. She did take it baby daily aspirin this evening also did take Maalox prior to arrival with little to no relief. She does not take a daily antacid or PPI. At this time cardiac work-up ordered including serial troponins, EKG, Lipase added on EKG was reviewed by [Dr. Dominguez Ashley] ER attending, please see his official report, old EKG available for review. We will consider CT abdomen pelvis due to length of reflux symptoms and patient's history of colon cancer. Initial troponin less than 0.05, CBC shows leukopenia 3.65 WBCs, low absolute neutrophils at 0.26 which patient has a history of. BUN 22 creatinine 0.9 GFR greater than [address] abd pelvis ordered. one 4.0 mg sublingual nitro brought patient's discomfort down from a 6 to a 3, was given a second nitroglycerin tablet. Patients blood pressure dropped mildly in the high 90s systolic after second nitro, will hold off on giving any more nitro at this time. 2330: Patient reevaluation, discussed labs and plan of care discussed serial troponin. Patient is requesting to be discharged. Informed that we are awaiting CT abdomen results she denies having any more episodes of reflux or burping since being medicated. She reports just feeling heavy. CT abd/Pelvis [facility] report: Lungs: Mild bilateral atelectasis. Liver: Normal. No mass. Gallbladder and bile ducts: The gallbladder appears contracted. Pancreas: Normal. No ductal dilation. Spleen: Normal. No splenomegaly. Adrenal glands: Normal. No mass. Kidneys and ureters: Normal. No hydronephrosis. Stomach and bowel: Unremarkable. No obstruction. No mucosal thickening. Colonic anastomosis noted. Appendix: No evidence of appendicitis. Intraperitoneal space: Unremarkable. No free air. No significant fluid collection. Vasculature: Unremarkable. No abdominal aortic aneurysm. Lymph nodes: Unremarkable. No enlarged lymph nodes. Urinary bladder: Unremarkable as visualized. Reproductive: Unremarkable as visualized. Bones/joints: Unremarkable. No acute fracture. Soft tissues: Unremarkable. IMPRESSION: No acute intra-abdominal pathology We will give patient Carafate prescription to go home with discussed CT scan and lab results with patient. Patient does not prefer to wait for second troponin. I am comfortable with this as patient's symptoms have been ongoing for the last 3 days. The colonic anastomosis can be related to her GERD type symptoms. Patient was given Pepcid 20 mg p.o. prior to discharge. Discussed taking oral [id number] Pepcid or Prevacid or similar antacid she verbalizes understanding. Patient remained alert oriented hemodynamically stable throughout stay, this text was generated using [employer] system, please disregard any oddities of phrase or misspellings. HPI General Mode of arrival: ambulatory. Date/Time Provider Initiated Documentation: 12/05/20 21:47. Limitations to Documentation: no limitations. Information obtained by: patient, RN notes reviewed and old records reviewed. HPI Narrative: 80-year-old female with a past medical history of colon cancer, , GERD presents to the ER with chief complaint of heartburn. Patient reports that she has had burning sensation from her midepigastrium up into her mid substernal chest associated with burping for the last 3 days. Denies anything making it better or worse denies any association with food. Denies any radiation into her back. Denies any abdominal pain or any other associated symptoms. She had a normal stress test in May of this year. She did take it baby daily aspirin this evening also did take Maalox prior to arrival with little to no relief. She does not take a daily antacid or PPI. Related Data Home Medications Medication Instructions Recorded Confirmed aspirin [Aspir-81] 81 mg PO DAILY 06/07/13 05/31/20 bupropion HCl 150 mg PO BID 06/07/13 05/31/20 calcium carbonate [Calcium 500] 500 mg PO DAILY AM 06/07/13 05/31/20 trazodone 50 mg PO HS 06/07/13 05/31/20 cholecalciferol (vitamin D3) 2,000 unit PO BID 06/12/17 05/31/20 [Vitamin D3] levalbuterol tartrate [Xopenex HFA] 15 gm INHALATION Q6H PRN PRN 06/12/17 05/31/20 inhaler nitroglycerin [Nitrostat] 0.4 mg SUBLINGUAL PRN PRN 08/30/19 05/31/20 fexofenadine 180 mg PO DAILY 04/11/20 05/31/20 acetaminophen [Tylenol] 650 mg PO Q4H PRN PRN #0 tab 04/12/20 05/31/20 docusate sodium [Colace] 100 mg PO TID PRN PRN #0 cap 04/12/20 05/31/20 ibuprofen [IBU] 600 mg PO Q8H #30 tab 04/12/20 05/31/20 polyethylene glycol 3350 17 g PO DAILY PRN PRN #0 ea 04/12/20 05/31/20 sucralfate [Carafate] 1 g PO QACHS PRN #20 tab 12/05/20 Previous Rx's Medication Instructions Recorded acetaminophen [Tylenol] 650 mg PO Q4H PRN PRN #0 tab 04/12/20 docusate sodium [Colace] 100 mg PO TID PRN PRN #0 cap 04/12/20 ibuprofen [IBU] 600 mg PO Q8H #30 tab 04/12/20 polyethylene glycol 3350 17 g PO DAILY PRN PRN #0 ea 04/12/20 sucralfate [Carafate] 1 g PO QACHS PRN #20 tab 12/05/20 Allergies Allergy/AdvReac Type Severity Reaction Status Date / Time Penicillins Allergy Severe swelling Unverified 04/10/20 21:54 Sulfa (Sulfonamide Allergy Unknown Unverified 04/10/20 21:54 Antibiotics) diazepam [From Valium] AdvReac Severe it sent me Unverified 04/10/20 21:54 on a trip propoxyphene HCl AdvReac Severe sent me on Unverified 04/10/20 21:54 [From [place]] a trip General MELISSA: 2 Review of Systems All systems reviewed & are unremarkable except as noted in HPI and below Constitutional Constitutional: Reports as per HPI, Denies excessive sweating, Denies fever(s), Denies headache(s) and Denies weakness ENT Ears, Nose, Mouth, and Throat: Denies headache(s) Cardiovascular Cardiovascular: Reports as per HPI and Denies dyspnea Respiratory Respiratory: Denies dyspnea Gastrointestinal Gastrointestinal: Reports belching, Denies melena, Denies change in stool character, Denies coffee ground emesis, Reports heartburn and Denies vomiting Neurologic Neurologic: Denies headache(s) and Denies weakness Endocrine Endocrine: Denies excessive sweating [facility] Medical History Chest pain Colon cancer GERD (gastroesophageal reflux disease) Macular degeneration Neutropenia Chronic benign neutropenia, Neupogen recommended prior to all invasive procedures and dental work Surgical History back surgery continues with lumbar pain. Is considering another steroid inj. 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 Colectomy 07/2014. Discovered on colonoscopy. eye surgery cataract repair History of cataract surgery macular degeneration eye surgery Total replacement of hip Right. 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 Appears stated age. Normal body habitus. Head: Normocephalic, no trauma. Eyes: Pupils PERRLA, Red reflex noted, EOM's intact. Eyelids symmetrical without lesions, discharge, or swelling. ENT: Bilateral TM's WNL, External ear normal to inspection, no mastoid TTP, swelling, or erythema, Nasal turbinates WNL, no nasal discharge. Normal dentition, Posterior pharynx WNL, no exudate. Chest: RRR, Normal S1, S2, distal pulses intact. Abdomen: Soft, nondistended , mildly tender in discomfort with left and right upper quadrant palpation. Resp: Lungs clear to auscultation bilaterally, no wheezes, rales, or rhonchi. Musculoskeletal: Normal gait, 5/5 strength to all four extremities. Skin: No suspicious rashes or lesions. Capillary refill less than 2 sec. Neurologic: Cranial nerves II-XII intact. Alert and oriented x 3. DTR's intact. Hematologic/Lymphatic: No ecchymosis, no lymphadenopathy.
[2020-12-05 22:15] LABS: Abs Immature Grans 0.01 10^3/uL (0.0-0.06); Absolute Basophil Count 0.03 10^3/uL (0.0-0.2); Absolute Eosinophil Count 0.07 10^3/uL (0.0-0.7); Absolute Lymphocyte Count 2.66 10^3/uL (1.2-3.4); Absolute Monocyte Count 0.62 10^3/uL (0.1-0.8); Basophils % 0.8; Eosinophils % 1.9; HCT 37.7 % (36.0-46.0); HGB 12.2 g/dL (11.2-15.7); Immature Grans % 0.3; Lymphocytes % 72.9; MCH 28.5 pg (27.0-33.0); MCHC 32.4 % (32.0-36.0); MCV 88.1 fL (80-95); MPV 8.6 fL (8.0-11.0); Neutrophils % 7.1; Nucleated RBC 0 %; Platelet Count 238 10^3/uL (130-400); RBC 4.28 10^6/uL (3.93-5.22); RDW 14.4 % (11.7-14.6); RDW-SD 46.5 fL; WBC 3.65 10^3/uL (4.4-10.8)
[2020-12-05 22:24] LABS: Absolute Neutrophil Count 0.26 10^3/uL (1.2-6.7)
[2020-12-05] MEDS: nitroGLYcerin 0.4 MG TAB SL ×2 (22:25→22:41)
[2020-12-05] MEDS: Aspirin 81 MG CHEW 243 MG CH (22:25)
[2020-12-05 22:26] LABS: Diff Comment Agrees w/ Instrument
[2020-12-05] MEDS: Normal Saline Flush 10 ML SYR IVP (22:26)
[2020-12-05 22:30] LABS: ALT 29 U/L (14-59); AST 30 U/L (15-37); Albumin 3.5 g/dL (3.4-5.0); Alkaline Phosphatase 107 U/L (46-116); Anion Gap 9.1 mmol/L (3-11); BUN 22 mg/dL (7-18); Bilirubin, Total 0.3 mg/dL (0.2-1.0); CO2 26.9 mmol/L (21.0-32.0); CREATININE 0.9 mg/dL (0.55-1.02); Calcium 9.2 mg/dL (8.5-10.1); Chloride 104 mmol/L (98-107); Glucose 113 mg/dL (74-106); Magnesium 2.3 mg/dL (1.8-2.4); Potassium 4.2 mmol/L (3.5-5.1); Sodium 140 mmol/L (136-145); Total Protein 6.7 g/dL (6.4-8.2)
--- NOTE | 2020-12-05 22:30 | DI.CT_ITS ---
Exam(s) CT ABDOMEN PELVIS W EXAM: CT ABDOMEN PELVIS W CLINICAL HISTORY: Acid reflux, hx Colon cancer TECHNIQUE: Imaging Protocol: Axial computed tomography images with coronal and sagittal reformatted images were created and reviewed CONTRAST MATERIAL: Intravenous: Omnipaque 350 Contrast volume:100 mL Oral: No COMPARISON: CT CT CHEST PE CTA from 05/31/2020 FINDINGS: ABDOMEN: Lung Bases: Bilateral basilar atelectasis or scarring. Small hiatal hernia. Liver: Normal density. No measurable mass. Portal, Superior Mesenteric, and Splenic Veins: Unremarkable. Gallbladder and Biliary Tract: No radiodense calculus or dilation. Pancreas: Normal density, no abnormal calcifications or inflammatory process. Spleen: Normal. Adrenals: No masses seen. Kidneys: Normal size, contour and axis. No radiodense stones or obstructive uropathy. No masses seen. Abdominal Aorta: Abdominal portion non-dilated. Atherosclerosis. Bowel: No obstruction or bowel wall thickening. No evidence of appendicitis. Moderate amount of callie ined stool. Surgical anastomosis is seen at the rectosigmoid junction. Peritoneal Cavity: No ascites, collection or mesenteric inflammatory response. No free air. Lymph Nodes: Within normal limits. Bones: The patient has a right total hip replacement. Posterior spinal surgery is seen at the lumbos acral junction. Degenerative changes are present throughout the spine. No suspicious lytic or scler otic lesions are present. Soft Tissues: Unremarkable. PELVIS: Bladder: Grossly unremarkable. There is limited visualization of the urinary bladder due to artifact from the patient's right hip prosthesis. Reproductive Organs: Status post hysterectomy. Lymph Nodes: Within normal limits. Bones: Within normal limits for the patient's age. IMPRESSION: No acute abdominal or pelvic process. RADIATION DOSE DELIVERED: 1,225.47mGy.cm Total DLP DATA REPOSITORY: All CT scans at this facility are submitted to the National Radiology Data Registry (NRDR) Dose Index Registry (DIR) with the [employer] (ACR). RADIATION OPTIMIZATION: All CT scans at this facility use at least one of these dose optimization te chniques: automated exposure control; mA and/or kV adjustment per patient size (includes targeted exa ms where dose is matched to clinical indication); or iterative reconstruction.
[2020-12-05 22:32] LABS: Troponin I < 0.05 ng/mL (<0.06)
[2020-12-05 22:52] LABS: Lipase 182 U/L (73-393)
[2020-12-05] MEDS: Omnipaque 350 MG/ML 100 ML BTL IJ (23:01)
[2020-12-05] MEDS: Normal Saline - Diluent 50 ML VIAL IV (23:02)
--- NOTE | 2020-12-05 23:32 | DI.VRAD_ITS ---
PROCEDURE INFORMATION: Exam: CT Abdomen And Pelvis With Contrast Exam date and time: 12/05/2020 10:35 PM Age: 80 years old Clinical indication: Pain; Other: Acid reflux HX colon CA TECHNIQUE: Imaging protocol: Computed tomography of the abdomen and pelvis with contrast. 3D rendering (Not supervised by radiologist): MIP and/or 3D reconstructed images were created by the technologist. Radiation optimization: All CT scans at this facility use at least one of these dose optimization techniques: automated exposure control; mA and/or kV adjustment per patient size (includes targeted exams where dose is matched to clinical indication); or iterative reconstruction. Contrast material: OMNI 350; Contrast volume: 100 ml; Contrast route: INTRAVENOUS (IV); COMPARISON: MR THORACIC SPINE WO 04/04/2020 8:07 AM FINDINGS: Lungs: Mild bilateral atelectasis. Liver: Normal. No mass. Gallbladder and bile ducts: The gallbladder appears contracted. Pancreas: Normal. No ductal dilation. Spleen: Normal. No splenomegaly. Adrenal glands: Normal. No mass. Kidneys and ureters: Normal. No hydronephrosis. Stomach and bowel: Unremarkable. No obstruction. No mucosal thickening. Colonic anastomosis noted. Appendix: No evidence of appendicitis. Intraperitoneal space: Unremarkable. No free air. No significant fluid collection. Vasculature: Unremarkable. No abdominal aortic aneurysm. Lymph nodes: Unremarkable. No enlarged lymph nodes. Urinary bladder: Unremarkable as visualized. Reproductive: Unremarkable as visualized. Bones/joints: Unremarkable. No acute fracture. Soft tissues: Unremarkable. IMPRESSION: No acute intra-abdominal pathology Dictated and Authenticated by: Kenneth Fontaine MD. Ordering:LAURA Deleon MD
--- NOTE | 2020-12-05 23:32 | DI.VRAD_ITS ---
PROCEDURE INFORMATION: Exam: XR Chest Exam date and time: 12/05/2020 9:51 PM Age: 80 years old Clinical indication: Other: Chest pain; Prior surgery TECHNIQUE: Imaging protocol: XR of the chest. Views: 2 views. COMPARISON: CT CHEST PE CTA 05/31/2020 11:48 AM FINDINGS: Lungs: Unremarkable. No consolidation. Pleural spaces: Unremarkable. No pleural effusion. No pneumothorax. Heart/Mediastinum: Unremarkable. No cardiomegaly. Bones/joints: Unchanged IMPRESSION: No acute findings. Dictated and Authenticated by: Kenneth Fontaine MD. Ordering:LAURA Deleon MD
[2020-12-05] MEDS: Famotidine 20 MG TAB (23:51)
[2020-12-06] MEDS: Sucralfate 1 GM TAB PO (00:06)
== END 2020-12-06 00:10 | disposition home or self-care (01) ==
PROVIDERS: Emergency Provider Registered Nurse Emergency; PCP Family Medicine
DX: K21.9 Gastro-esophageal reflux disease without esophagitis (principal)
CPT/HCPCS: 80053; 83690; 93005; 99285; 71046; 74177; 83735; 84484; 85025; 93010; 99284; J3490

== ENCOUNTER 2021-05-15 16:15 | Outpatient (CLI) | payer MEDICARE, SELFPAY ==
[2021-05-17 14:58] LABS: COVID-19 RT-PCR UVMMC Result Negative (Negative)
== END 2021-05-15 16:16 | disposition home or self-care (01) ==
PROVIDERS: PCP Family Medicine; Visit Provider Family Medicine
DX: Z20.822 Contact with and (suspected) exposure to COVID-19 (principal)
CPT/HCPCS: U0003

== ENCOUNTER 2021-05-18 04:19 | Outpatient (CLI) | payer MEDICARE, SELFPAY ==
[2021-05-18 12:44] LABS: Abs Immature Grans 0.01 10^3/uL (0.0-0.06); Absolute Basophil Count 0.03 10^3/uL (0.0-0.2); Absolute Eosinophil Count 0.07 10^3/uL (0.0-0.7); Absolute Lymphocyte Count 2.23 10^3/uL (1.2-3.4); Eosinophils % 2.3; HCT 42.3 % (36.0-46.0); HGB 13.6 g/dL (11.2-15.7); Immature Grans % 0.3; Lymphocytes % 73.1; MCH 28.5 pg (27.0-33.0); MCHC 32.2 % (32.0-36.0); MCV 88.7 fL (80-95); MPV 8.7 fL (8.0-11.0); Monocytes % 16.4; Neutrophils % 6.9; Nucleated RBC 0 %; Platelet Count 253 10^3/uL (130-400); RBC 4.77 10^6/uL (3.93-5.22); RDW 13.9 % (11.7-14.6); RDW-SD 44.9 fL; WBC 3.05 10^3/uL (4.4-10.8)
[2021-05-18 12:51] LABS: Absolute Neutrophil Count 0.21 10^3/uL (1.2-6.7)
[2021-05-18 12:52] LABS: Diff Comment Diff Reviewed; RBC Morphology Normal
[2021-05-18 13:45] LABS: ALT 24 U/L (14-59); AST 22 U/L (15-37); Albumin 3.9 g/dL (3.4-5.0); Alkaline Phosphatase 105 U/L (46-116); Anion Gap 6.1 mmol/L (3-11); BUN 27 mg/dL (7-18); Bilirubin, Total 0.4 mg/dL (0.2-1.0); CO2 28.9 mmol/L (21.0-32.0); CREATININE 1.2 mg/dL (0.55-1.02); Calcium 9.5 mg/dL (8.5-10.1); Chloride 103 mmol/L (98-107); Estimated GFR 43.45 (mL/min/1.73m2); Glucose 99 mg/dL (74-106); Potassium 4.5 mmol/L (3.5-5.1); Sodium 138 mmol/L (136-145); Total Protein 6.9 g/dL (6.4-8.2)
== END 2021-05-18 04:20 | disposition home or self-care (01) ==
LOC: LBO 04:20
PROVIDERS: PCP Family Medicine; Visit Provider Internal Medicine Hematology & Oncology
DX: D70.8 Other neutropenia (principal)
CPT/HCPCS: 36415; 80053; 85025

== ENCOUNTER 2021-06-02 00:44 | Outpatient (CLI) | payer MEDICARE, SELFPAY ==
--- NOTE | 2021-06-02 | DI.CT_ITS ---
Exam(s) CT CHEST WO EXAM: CT CHEST WO CLINICAL HISTORY: FORMER SMOKER, Z87.891,SCREENING FOR LUNG CA TECHNIQUE: Imaging Protocol: Axial computed tomography images with coronal and sagittal reformatted images were created and reviewed COMPARISON: CT CT CHEST PE CTA from 05/31/[address] ABDOMEN PELVIS W from 12/05/2020 CR,XR XR CHEST 2V PA LATERAL from 12/05/2020 FINDINGS: Tracheobronchial tree: Patent where visualized. Mediastinum and Leonarda: No dominant adenopathy or fluid collection. Stable nodule associated with the left lobe of the thyroid. Pulmonary parenchyma: No consolidation or dominant measurable mass. No architectural distortion. Lung Nodules: Stable small nodule versus scarring in the lingula. No new or suspicious nodules. Pleura: No effusion or pneumothorax. Heart: The heart is not dilated. Mild coronary artery calcifications are seen. Aorta: Thoracic aorta non-dilated. Upper abdomen: Unremarkable. Bones: Unremarkable for age. Soft Tissues: Unremarkable. IMPRESSION: No suspicious findings. Lung RADS Cat 1 - Negative: No nodules and definitely benign nodules Lung-RADS 1.0 CATEGORIES: Category 0 - Prior chest CT exam(s) being located for comparison. Category 1 - Annual screening in 12 months. No nodules or definitely benign nodules. Category 2 - Annual screening in 12 months. Benign appearance. Nodules with low likelihood of becomin g active cancer. Category 3 - 6-month follow-up. Probably benign. Short-term follow-up suggested. Nodules with low lik elihood of becoming active cancer. Category 4A - 3-month follow-up and CT/PET if >8 mm in size. Suspicious finding. Findings which requi re additional testing. Category 4B - Findings which require additional testing and tissue sampling. Category 4X - Category 3 or 4 nodules with additional features or imaging findings that increases the suspicion of malignancy. Modifier S- Potentially clinically significant findings (non lung cancer) RADIATION DOSE DELIVERED: 79.62mGy.cm Total DLP 1.84mGy CTDIvol 79.62mGy.cm Total DLP DATA REPOSITORY: All CT scans at this facility are submitted to the National Radiology Data Registry (NRDR) Dose Index Registry (DIR) with the [employer] (ACR). RADIATION OPTIMIZATION: All CT scans at this facility use at least one of these dose optimization te chniques: automated exposure control; mA and/or kV adjustment per patient size (includes targeted exa ms where dose is matched to clinical indication); or iterative reconstruction.
== END 2021-06-02 01:04 ==
PROVIDERS: PCP Family Medicine; Visit Provider Family Medicine
DX: Z12.2 Encounter for screening for malignant neoplasm of respiratory organs (principal); Z87.891 Personal history of nicotine dependence; E04.1 Nontoxic single thyroid nodule; J98.4 Other disorders of lung
CPT/HCPCS: 71250

== ENCOUNTER → 2021-08-04 01:59 | Outpatient (CLI) | payer MEDICARE, SELFPAY ==
--- NOTE | 2021-08-04 08:41 | DI.RAD_ITS ---
Exam(s) XR HIP RT COMPLETE AP PELVIS EXAM: XR HIP RT COMPLETE AP PELVIS CLINICAL HISTORY: THIGH PAIN, M79.659; H/O HIP REPLACEMENT, Z96.649. TECHNIQUE: 2D digital imaging was performed of the right hip. Two images were obtained. AP pelvis a nd lateral right hip views were obtained. COMPARISON: CR LUMBAR SPINE COMPLETE from 10/08/2017 FINDINGS: BONES: No acute fracture is present. No bony destructive lesion is seen. JOINTS: No dislocation present. There again seen postsurgical changes of a right total hip replacemen t. No evidence of hardware failure is present. Mild degenerative changes are seen at the sacroiliac joints. SOFT TISSUE: Normal. IMPRESSION: Stable right THR. DATA REPOSITORY: RADIATION DOSE DELIVERED:
== END ==
PROVIDERS: PCP Family Medicine; Visit Provider Family Medicine
DX: M79.651 Pain in right thigh (principal); Z96.641 Presence of right artificial hip joint
CPT/HCPCS: 73502

== ENCOUNTER 2021-09-05 16:56 | Outpatient (REF) | payer MEDICARE, SELFPAY ==
[2021-09-05 20:07] LABS: Hemoglobin A1C 6.1 % (<5.7)
[2021-09-05 20:08] LABS: Anion Gap 7.7 mmol/L (3-11); BUN 15 mg/dL (7-18); CO2 27.3 mmol/L (21.0-32.0); CREATININE 1.1 mg/dL (0.55-1.02); Calcium 9.2 mg/dL (8.5-10.1); Chloride 105 mmol/L (98-107); Estimated GFR 47.91 (mL/min/1.73m2); Glucose 100 mg/dL (74-106); Potassium 4.3 mmol/L (3.5-5.1); Sodium 140 mmol/L (136-145)
[2021-09-07 08:54] LABS: Calculated LDL 159 mg/dL (<100); Cholesterol 248 mg/dL (<200); HDL Cholesterol 70 mg/dL (40-60); Triglyceride 98 mg/dL (<150)
[2021-09-07 18:55] LABS: CEA 1.2 ng/mL (See Note)
== END 2021-09-05 16:57 | disposition home or self-care (01) ==
LOC: NCHCN 16:56
PROVIDERS: PCP Family Medicine; Visit Provider Family Medicine
DX: N28.9 Disorder of kidney and ureter, unspecified (principal); R35.89 Other polyuria; R73.09 Other abnormal glucose
CPT/HCPCS: 80048; 80061; 82378; 83036; 87086

== ENCOUNTER 2021-09-05 17:01 | Outpatient (REF) | payer MEDICARE, SELFPAY | END 2021-09-05 17:02 | disposition home or self-care (01) | LOC: NCHCN 17:01 | PROVIDERS: PCP Family Medicine; Visit Provider Family Medicine ==

== ENCOUNTER → 2021-10-20 00:10 | Outpatient (CLI) | payer MEDICARE, SELFPAY ==
--- NOTE | 2021-10-20 15:30 | DI.MAMMO_ITS ---
Exam(s) MAMMO SCREENING EXAM: MAMMO SCREENING CLINICAL HISTORY: SCREENING, Z12.31 TECHNIQUE: Bilateral full field digital CC and MLO mammographic images were obtained with 3D tomosyn thesis and utilizing computer aided detection (CAD). COMPARISON: Available for comparison. FINDINGS: Masses/Architectural Distortion: None seen. Microcalcifications: No suspicious pleomorphic-type are seen. Skin Thickening/Nipple Retraction: None. IMPRESSION: 1. No significant interval change with no specific features of malignancy noted. 2. Unless there is more urgent need, screening mammography is recommended, as per [employer] guidelines. BI-RADS Category 1 - Negative Breast Density - Category B - Scattered areas of fibroglandular density Breast density category C or D implies that the patient has dense breast tissue. Dense breast tissue is very common and is not abnormal but dense breast tissue can make it harder to find cancer on a ma mmogram. Also, dense breast tissue may increase their breast cancer risk. This information about the result of the mammogram report was provided to the patient to raise their awareness. Use this report when you speak with the patient about their risks for breast cancer, which includes their family hist ory. At that time, you may recommend for more screening tests (Ultrasound or MRI) as they might be us eful based on their risk. A negative radiographic report should not delay biopsy if a dominant or clinically suspicious mass is present. Up to ten percent of cancers are not identified on mammography. A negative report may reinforce clinical impression. Adenosis and dense breasts may obscure an underlying neoplasm. False positive reports average 6 to 10%. Patient will receive a letter notifying them of these results.
== END ==
PROVIDERS: PCP Family Medicine; Visit Provider Family Medicine
DX: Z12.31 Encounter for screening mammogram for malignant neoplasm of breast (principal)
CPT/HCPCS: 77063; 77067

== ENCOUNTER 2021-12-25 16:00 | Outpatient (REF) | payer MEDICARE, SELFPAY ==
[2021-12-25 16:15] LABS: HCT 41.2 % (36.0-46.0); HGB 13.4 g/dL (11.2-15.7); MCH 29.5 pg (27.0-33.0); MCHC 32.5 % (32.0-36.0); MCV 91 fL (80-95); MPV 8.8 fL (8.0-11.0); Platelet Count 230 10^3/uL (130-400); RBC 4.55 10^6/uL (3.93-5.22); RDW 13.8 % (11.7-14.6); RDW-SD 46.5 fL; WBC 3.75 10^3/uL (4.4-10.8)
[2021-12-25 16:23] LABS: ESR 22 mm/hr (0-30)
[2021-12-25 16:47] LABS: AST 24 U/L (15-37); Calculated LDL 73 mg/dL (<100); Cholesterol 177 mg/dL (<200); HDL Cholesterol 73 mg/dL (40-60); Triglyceride 159 mg/dL (<150)
[2021-12-25 17:12] LABS: Creatine Kinase 71 U/L (26-192)
== END 2021-12-25 16:01 | disposition home or self-care (01) ==
LOC: NCHCN 16:00
PROVIDERS: PCP Family Medicine; Visit Provider Family Medicine
DX: N28.9 Disorder of kidney and ureter, unspecified (principal); R73.03 Prediabetes; D70.9 Neutropenia, unspecified; R35.89 Other polyuria; Z00.00 Encounter for general adult medical examination without abnormal findings
CPT/HCPCS: 80061; 82550; 85027; 85652; 83036; 84450

== ENCOUNTER 2022-03-05 10:27 | Outpatient (CLI) | payer MEDICARE, SELFPAY ==
--- NOTE | 2022-03-05 09:15 | DI.RAD_ITS ---
Exam(s) XR FEMUR RT EXAM: XR FEMUR RT CLINICAL HISTORY: right thigh pain. TECHNIQUE: 2D digital imaging was performed. COMPARISON: CR XR HIP RT COMPLETE AP PELVIS from 08/04/2021 FINDINGS: BONES: Stable appearance of right hip prosthesis heterotopic calcification again noted above greater trochanter. Exostosis from the lateral right iliac wing. No acute fracture is present. No bony dest ructive lesion is seen. Visualized portion of knee is unremarkable. SOFT TISSUE: Normal. IMPRESSION: Stable appearance of right hip prosthesis. No acute abnormality. DATA REPOSITORY: RADIATION DOSE DELIVERED:
== END 2022-03-05 10:28 | disposition home or self-care (01) ==
LOC: DIORS 10:27
PROVIDERS: PCP Family Medicine; Referring Provider Family Medicine; Visit Provider Physician Assistant
DX: M79.651 Pain in right thigh (principal); R29.898 Other symptoms and signs involving the musculoskeletal system
CPT/HCPCS: 73552; 99213

== ENCOUNTER → 2022-03-14 01:59 | Outpatient (CLI) | payer MEDICARE, SELFPAY ==
--- NOTE | 2022-03-14 07:40 | DI.NM_ITS ---
Exam(s) NM BONE SCAN 3 PHASE EXAM: NM BONE SCAN 3 PHASE CLINICAL HISTORY: Pain, ?loosening RTHA,weakness rt leg, r29.898,t84.84xa. TECHNIQUE: Injected Dose: 25 mCi Tc-99m MDP COMPARISON: CR XR LUMBAR SPINE AP, LAT from 07/13/2020 CR XR HIP RT COMPLETE AP PELVIS from 08/04/2021 CR XR FEMUR RT from 03/05/2022 FINDINGS: Perfusion: Symmetric. Blood Pool: Symmetric. Delayed: Photopenic area at right hip related to prosthesis. Slightly increased activity at the tip of the prosthesis may be within normal limits. Areas of increased activity are are noted in both fee t as well as the lower lumbar spine and both 1st carpal metacarpal joints, consistent with degenerati ve changes. The patient has also had back surgery. IMPRESSION: 1. Slightly increased activity at the tip of the stem of the femoral component of the total hip prost hesis. This mount of activity is likely within normal limits. DATA REPOSITORY:
== END ==
PROVIDERS: PCP Family Medicine; Visit Provider Student in an Organized Health Care Education/Training Program
DX: R29.898 Other symptoms and signs involving the musculoskeletal system (principal); T84.84XA Pain due to internal orthopedic prosthetic devices, implants and grafts, initial encounter
CPT/HCPCS: 78315

== ENCOUNTER 2022-06-08 09:44 | Outpatient (CLI) | payer MEDICARE, SELFPAY ==
--- NOTE | 2022-06-08 10:48 | DI.RAD_ITS ---
Exam(s) XR CHEST 2V PA LATERAL EXAM: XR CHEST 2V PA LATERAL CLINICAL HISTORY: COUGH, R05.8; RT-SIDED RIB PAIN, R07.81 TECHNIQUE: 2D digital imaging was performed of the chest. Two images were obtained. PA and lateral views were obtained. COMPARISON: CR,XR XR CHEST 2V PA LATERAL from 12/05/2020 FINDINGS: MEDIASTINUM: Normal. HEART: Normal. PULMONARY VASCULATURE: Normal. LUNGS: Clear. The lungs appear hyperinflated with flattened diaphragms suggesting underlying COPD. PLEURAL SPACE: No pleural effusion or pneumothorax. BONE:Within normal limits for the patient's age. OTHER FINDINGS:Normal. IMPRESSION: No acute pulmonary findings. DATA REPOSITORY: RADIATION DOSE DELIVERED:
== END 2022-06-08 10:04 ==
PROVIDERS: PCP Family Medicine; Visit Provider Family Medicine
DX: R05.8 Other specified cough (principal); R07.81 Pleurodynia; J44.9 Chronic obstructive pulmonary disease, unspecified
CPT/HCPCS: 71046

== ENCOUNTER 2022-06-12 03:08 | Outpatient (CLI) | payer MEDICARE, SELFPAY ==
[2022-06-12 09:48] LABS: Absolute Basophil Count 0.04 10^3/uL (0.0-0.2); Absolute Eosinophil Count 0.05 10^3/uL (0.0-0.7); Absolute Lymphocyte Count 1.93 10^3/uL (1.2-3.4); Absolute Monocyte Count 0.36 10^3/uL (0.1-0.8); Basophils % 1.4; Eosinophils % 1.8; HCT 38.9 % (36.0-46.0); HGB 12.9 g/dL (11.2-15.7); Lymphocytes % 69.9; MCH 29.1 pg (27.0-33.0); MCHC 33.2 % (32.0-36.0); MCV 88 fL (80-95); MPV 8.6 fL (8.0-11.0); Neutrophils % 13.9; Platelet Count 269 10^3/uL (130-400); RBC 4.43 10^6/uL (3.93-5.22); WBC 2.76 10^3/uL (4.4-10.8)
[2022-06-12 10:12] LABS: Absolute Neutrophil Count 0.38 10^3/uL (1.2-6.7)
[2022-06-12 10:13] LABS: Diff Comment Diff Reviewed; RBC Morphology Normal
[2022-07-04 12:09] LABS: Misc Referral (MAYO) See Comments
[2022-09-10 16:09] LABS: Immunophenotyping FC (DHMC) See Comments
== END 2022-06-12 03:09 | disposition home or self-care (01) ==
LOC: LBO 03:08
PROVIDERS: PCP Family Medicine; Visit Provider Internal Medicine Hematology & Oncology
DX: D70.8 Other neutropenia (principal); R73.03 Prediabetes
CPT/HCPCS: 36415; 88184; 88185; 83036; 85025

== ENCOUNTER 2022-06-28 15:21 | Outpatient (CLI) | payer MEDICARE, SELFPAY ==
--- NOTE | 2022-06-28 | DI.RAD_ITS ---
Exam(s) XR SHOULDER RT COMPLETE 2+V EXAM: XR SHOULDER RT COMPLETE 2+V CLINICAL HISTORY: Rt shoulder pain, M25.511, ? underlying OA and calcific tendinitis. TECHNIQUE: 2D digital imaging was performed. COMPARISON: CR LEFT SHOULDER COMPLETE from 02/01/2014 FINDINGS: Five views: No evidence of fracture nor dislocation. No obvious degenerative changes in the glenohumeral joint. Subacromial space appears unremarkable, not diminished and without evidence of soft tissue calcifica tions at this level. There are mild degenerative changes in the AC joint. There are no osseous lesi ons. There is a healed fracture of the right 4th rib noted. IMPRESSION: No significant osseous findings in the right shoulder. Incidentally noted is a healed right 4th rib fracture. DATA REPOSITORY: RADIATION DOSE DELIVERED:
--- NOTE | 2022-06-28 | DI.RAD_ITS ---
Exam(s) XR SHOULDER LT COMPLETE 2+V EXAM: XR SHOULDER LT COMPLETE 2+V CLINICAL HISTORY: Lt shoulder pain, M25.512, ? underlying OA and calcific tendinitis. TECHNIQUE: 2D digital imaging was performed. COMPARISON: CR LEFT SHOULDER COMPLETE from 02/01/2014 CR THORACIC SPINE from 10/08/[address] CHEST WO from 06/02/2021 CR XR CHEST 2V PA LATERAL from 06/08/2022 FINDINGS: Five views: No evidence of fracture or dislocation. There is a small 1 millimeter calcific density in the soft t issues immediately adjacent to the greater tuberosity, probably consistent with element of rotator cu ff tendinitis. There are moderate degenerative changes in the glenohumeral joint. There is again no lata widening of the AC joint as was present in 2014 and most probably reflects possible prior decompr ession surgery. There is a sclerotic bone lesion in the left humeral head-neck which is similar in appearance to 2014 and therefore benign. Nonexpansile. No cortical dehiscence. IMPRESSION: 1. Sclerotic bone lesion in the humeral head-neck which is unchanged from 2014 and therefore benign. 2. Widened AC joint which is probably related to prior decompression surgery. 3. Calcific rotator cuff tendinitis. DATA REPOSITORY: RADIATION DOSE DELIVERED:
== END 2022-06-28 15:41 ==
LOC: DI 15:41
PROVIDERS: PCP Family Medicine; Visit Provider Physician Assistant Medical
DX: M75.32 Calcific tendinitis of left shoulder (principal)
CPT/HCPCS: 73030

== ENCOUNTER → 2022-08-28 10:13 | Outpatient (BNVA) | payer MEDICARE, SELFPAY | PROVIDERS: PCP Family Medicine; Referring Provider Family Medicine; Visit Provider Student in an Organized Health Care Education/Training Program | DX: M75.21 Bicipital tendinitis, right shoulder (principal); M75.51 Bursitis of right shoulder | CPT/HCPCS: 99213 ==

== ENCOUNTER → 2022-09-05 13:16 | Outpatient (BNVA) | payer MEDICARE, SELFPAY | PROVIDERS: PCP Family Medicine; Referring Provider Family Medicine; Visit Provider Student in an Organized Health Care Education/Training Program | DX: M75.21 Bicipital tendinitis, right shoulder (principal); M75.51 Bursitis of right shoulder | CPT/HCPCS: 20610; 99213; J1030 ==

== ENCOUNTER 2022-10-31 01:46 | Outpatient (CLI) | payer MEDICARE, SELFPAY ==
--- NOTE | 2022-10-31 | DI.RAD_ITS ---
Exam(s) XR CERVICAL SPINE COMP 4-5V EXAM: XR CERVICAL SPINE COMP 4-5V CLINICAL HISTORY: RADICULOPATHY, UPPER EXT, M54.10. TECHNIQUE: 2D digital imaging was performed. Seven images were obtained. AP, odontoid, lateral and b ilateral oblique images were obtained. COMPARISON: No exams were available for comparison FINDINGS: The odontoid is intact. The lateral masses are well aligned. There is straightening of the normal ce rvical lordosis. There are endplate osteophytes at the cervical spine particularly at C3-4 and C6-C7 . There is disc space narrowing at multiple levels of the cervical spine particularly at C3-C4. No a cute fracture or subluxation is present. Facet arthropathy is present throughout the cervical spine. [id number]-[id number]-[id number] bilateral neural foraminal narrowing is seen at C3-C4 and C4-C5. The bones are ost eopenic. The cervical thoracic junction is well maintained. The prevertebral soft tissues are unrem arkable. Lung apices are clear. IMPRESSION: Moderately severe degenerative changes in the cervical spine. DATA REPOSITORY: RADIATION DOSE DELIVERED:
== END 2022-10-31 02:06 ==
LOC: DI 01:46
PROVIDERS: PCP Family Medicine; Visit Provider Family Medicine
DX: M50.021 Cervical disc disorder at C4-C5 level with myelopathy (principal); M50.022 Cervical disc disorder at C5-C6 level with myelopathy; M50.023 Cervical disc disorder at C6-C7 level with myelopathy; M85.89 Other specified disorders of bone density and structure, multiple sites
CPT/HCPCS: 72050

== ENCOUNTER 2022-11-23 01:09 | Outpatient (CLI) | payer MEDICARE, SELFPAY ==
--- NOTE | 2022-11-23 | DI.MRI_ITS ---
Exam(s) MR CERVICAL SPINE WO EXAM: MR CERVICAL SPINE WO CLINICAL HISTORY: UPPER EXT RADICULOPATHY,M54.10, NEUROPATHY,G62.9,RUE PARESTHESIAS,DISC SPAC TECHNIQUE: Multiplanar multisequence MRI of the cervical spine was performed without intravenous con trast. COMPARISON: MR MRI - CERVICAL SPINE WO CONT from 12/16/2014 CR XR CERVICAL SPINE COMP 4-5V from 10/31/2022 FINDINGS: CERVICOMEDULLARY JUNCTION: Intact with no evidence of cerebellar tonsillar ectopia. No obvious abnor mality of the odontoid process. No evidence of Chiari 1 malformation. CERVICAL SPINAL CORD: There is no abnormal signal in the cervical spinal cord and no evidence of foca l cord atrophy nor focal cord swelling. OSSEOUS:There are no cervical fractures evident. No significant osseous lesions in the cervical vert ebrae. INDIVIDUAL LEVELS: C2-3: No disc herniation or central canal stenosis. There is fusion across the left facet joints at this level. Right facet joints unremarkable. No foraminal stenosis at this level. C3-4: Chronic advanced disc space. Mild degenerative anterolisthesis C3 upon C4. Mild annular bulgi ng but without a dominant disc herniation. Central canal dimensions lower normal.There are degenerat zeinab changes in both facet joints at this level. Mild-moderate bilateral foraminal stenosis evident. C4-5: Chronic disc space narrowing. Mild degenerative anterolisthesis C4 upon C5. Broad annular bul ging with mild central spinal canal stenosis evident. Degenerative changes evident in both facet vicki nts. Mild bilateral foraminal stenosis. C5-6: Preserved disc height and signal. No disc herniation or central canal stenosis. Left facet tamiko ints appear unremarkable. No left foraminal stenosis. Right facet joints exhibit mild degenerative changes. Mild right-sided foraminal stenosis C6-7: Moderate disc space narrowing. Anterior osteophytes. Mild symmetrical annular bulging. Small bilateral Luschka joint osteophytes. Although there is no prominent disc herniation, there is mild- moderate central canal stenosis at this level. This related to short AP dimensions of the pedicles. There are degenerative changes in the facet joints bilaterally at this level. Moderate bilateral fo raminal stenosis. C7-T1: No disc herniation nor central canal stenosis. Bilateral facet hypertrophy noted. However, th ere does not appear to be seminal stenosis on either side at this level.No foraminal stenosis. IMPRESSION: 1. Multilevel chronic degenerative disc disease as described individually above. Although there is n o dominant disc herniation, there is an element of central spinal canal stenosis at C6-7 and see 4-5 levels. There is an element of bilateral foraminal stenosis at levels described above. 2. Is interesting to note that there is relative sparing of this C5-6 level here,. 3. There is no abnormal signal in the cervical spinal cord. DATA REPOSITORY:
== END 2022-11-23 01:29 ==
LOC: DI 01:09
PROVIDERS: PCP Family Medicine; Visit Provider Family Medicine
DX: M51.36 Other intervertebral disc degeneration, lumbar region (principal); M54.16 Radiculopathy, lumbar region
CPT/HCPCS: 72141

== ENCOUNTER 2022-12-06 04:01 | Outpatient (CLI) | payer MEDICARE, SELFPAY ==
[2022-12-06 12:51] LABS: ALT 21 U/L (14-59); AST 25 U/L (15-37); Albumin 3.5 g/dL (3.4-5.0); Alkaline Phosphatase 112 U/L (46-116); Anion Gap 8.5 mmol/L (3-11); BUN 22 mg/dL (7-18); Bilirubin, Total 0.4 mg/dL (0.2-1.0); CO2 27.5 mmol/L (21.0-32.0); CREATININE 1.2 mg/dL (0.55-1.02); Calcium 9.3 mg/dL (8.5-10.1); Chloride 106 mmol/L (98-107); Estimated GFR 45.76 (mL/min/1.73m2); Glucose 96 mg/dL (74-106); Potassium 4.3 mmol/L (3.5-5.1); Sodium 142 mmol/L (136-145); Total Protein 6.7 g/dL (6.4-8.2)
[2022-12-06 13:16] LABS: Creatine Kinase 99 U/L (26-192); TSH (W/Ref FT4) 0.63 uIU/mL (0.36-3.74)
[2022-12-06 15:55] LABS: Hemoglobin A1C 5.8 % (<5.7)
[2022-12-06 16:22] LABS: Vitamin B12 326 pg/mL (193-986)
[2022-12-06 16:23] LABS: Absolute Basophil Count 0.04 10^3/uL (0.0-0.2); Absolute Eosinophil Count 0.05 10^3/uL (0.0-0.7); Absolute Lymphocyte Count 2.53 10^3/uL (1.2-3.4); Absolute Monocyte Count 0.46 10^3/uL (0.1-0.8); Basophils % 1.2; Eosinophils % 1.5; HCT 41.5 % (36.0-46.0); HGB 13.2 g/dL (11.2-15.7); Lymphocytes % 74.9; MCH 28.9 pg (27.0-33.0); MCHC 31.8 % (32.0-36.0); MCV 91 fL (80-95); MPV 8.5 fL (8.0-11.0); Monocytes % 13.6; Neutrophils % 8.8; Platelet Count 255 10^3/uL (130-400); RBC 4.56 10^6/uL (3.93-5.22); RDW 13.9 % (11.7-14.6); RDW-SD 46.7 fL; WBC 3.38 10^3/uL (4.4-10.8)
[2022-12-10 13:48] LABS: Albumin 63.1 % (55.8-66.1); Albumin g/dL 4.1 g/dL (3.6-5.2); Total Protein 6.5 g/dL (6.3-8.2)
== END 2022-12-06 04:02 | disposition home or self-care (01) ==
LOC: LBO 04:01
PROVIDERS: PCP Family Medicine; Visit Provider Internal Medicine Hematology & Oncology
DX: D70.9 Neutropenia, unspecified (principal); G62.9 Polyneuropathy, unspecified
CPT/HCPCS: 36415; 80053; 82550; 82607; 83036; 84165; 84443; 85025

== ENCOUNTER 2022-12-19 13:00 | Outpatient (CLI) | payer MEDICARE, SELFPAY ==
[2022-12-19 13:20] LABS: Abs Immature Grans 0.01 10^3/uL (0.0-0.06); Absolute Basophil Count 0.05 10^3/uL (0.0-0.2); Absolute Lymphocyte Count 2.38 10^3/uL (1.2-3.4); Absolute Monocyte Count 0.49 10^3/uL (0.1-0.8); Absolute Neutrophil Count 1.22 10^3/uL (1.2-6.7); Basophils % 1.2; Eosinophils % 2.4; HCT 39.7 % (36.0-46.0); HGB 12.6 g/dL (11.2-15.7); Immature Grans % 0.2; MCH 28.8 pg (27.0-33.0); MCHC 31.7 % (32.0-36.0); MCV 91 fL (80-95); MPV 8.4 fL (8.0-11.0); Monocytes % 11.5; Neutrophils % 28.7; Platelet Count 246 10^3/uL (130-400); RBC 4.38 10^6/uL (3.93-5.22); RDW 14.1 % (11.7-14.6); RDW-SD 47.5 fL; WBC 4.25 10^3/uL (4.4-10.8)
[2022-12-19 13:40] LABS: ESR 20 mm/hr (0-30)
[2022-12-19 13:52] LABS: Bilirubin Negative (Negative); Blood Negative (Negative); Clarity Sl Cloudy (Clear); Glucose Negative (Negative); Ketones Trace mg/dL (Negative); Leukocyte Esterase Negative (Negative); Nitrite Negative (Negative); Specific Gravity 1.025 (1.005-1.025); Urobilinogen 0.2 mg/dL (Up to 0.2); pH 5.5 (5-8)
[2022-12-19 14:01] LABS: ALT 39 U/L (14-59); AST 35 U/L (15-37); Albumin 3.4 g/dL (3.4-5.0); Alkaline Phosphatase 114 U/L (46-116); Anion Gap 11.4 mmol/L (3-11); BUN 26 mg/dL (7-18); Bilirubin, Total 0.3 mg/dL (0.2-1.0); C-Reactive Protein 0.37 mg/dL (0.0-0.3); CO2 26.6 mmol/L (21.0-32.0); Calcium 9.2 mg/dL (8.5-10.1); Chloride 110 mmol/L (98-107); Estimated GFR 56.95 (mL/min/1.73m2); Glucose 85 mg/dL (74-106); Potassium 4.2 mmol/L (3.5-5.1); Sodium 148 mmol/L (136-145); Total Protein 6.8 g/dL (6.4-8.2)
[2022-12-19 22:00] LABS: Rheumatoid Factor <8.6 IU/mL (<12.0)
[2022-12-19 23:19] LABS: CEA 1.5 ng/mL (See Note)
[2022-12-20 10:58] LABS: Lyme Ab w Rflx to Lyme Confirm Negative (Negative)
[2022-12-20 15:04] LABS: ANA Interpretation Negative (Negative)
== END 2022-12-19 13:01 | disposition home or self-care (01) ==
LOC: LBO 13:01
PROVIDERS: PCP Family Medicine; Visit Provider Family Medicine
DX: R10.30 Lower abdominal pain, unspecified (principal); Z85.038 Personal history of other malignant neoplasm of large intestine; G62.9 Polyneuropathy, unspecified
CPT/HCPCS: 36415; 80053; 85652; 81003; 82378; 85025; 86038; 86140; 86431; 86618

== ENCOUNTER 2022-12-26 08:49 | Emergency (ER) | payer MEDICARE, SELFPAY ==
[2022-12-26 08:51] VITALS: BP 126/81; PULSE 77; RESP 18; TEMP 36.8; O2SAT 97
--- NOTE | 2022-12-26 09:00 | DI.CT_ITS ---
Exam(s) CT ABDOMEN PELVIS W EXAM: CT ABDOMEN PELVIS W CLINICAL HISTORY: Lower abd bloating, LLQ pain, S/P Colonoscopy. TECHNIQUE: Imaging Protocol: Axial computed tomography images with coronal and sagittal reformatted images were created and reviewed CONTRAST MATERIAL: Intravenous: Omnipaque 350 Contrast volume:100 ml Oral: no COMPARISON: CT CT ABDOMEN PELVIS W from 12/05/2020 FINDINGS: ABDOMEN: Lung Bases: Normal where visualized. Liver: Normal density. No measurable mass. Gallbladder and biliary tract: No radiodense calculus or dilation. Pancreas: Normal density, no abnormal calcifications or inflammatory process. Spleen: Normal. Kidneys: Normal size, contour and axis. No radiodense stones or obstructive uropathy. No suspicious m asses seen. Adrenal glands: No masses seen. Abdominal Aorta: Abdominal portion non-dilated. Soft tissues: Unremarkable. PELVIS: Bladder: No gross wall thickening. No calculi.No focal mass. Bowel: Sigmoid anastomosis. Large quantity of stool. No obstruction. No bowel wall thickening. Peritoneal cavity: No ascites, collection or mesenteric inflammatory response. Bones: Severe degenerative changes in the spine. Posterior fusion hardware from L3 through L5. Righ t hip prosthesis. Reproductive organs: Status post hysterectomy. Lymph nodes: Unremarkable. Impression: No acute abnormality in the abdomen and pelvis. RADIATION DOSE DELIVERED: 657.74mGy.cm Total DLP DATA REPOSITORY: All CT scans at this facility are submitted to the National Radiology Data Registry (NRDR) Dose Index Registry (DIR) with the [employer] (ACR). RADIATION OPTIMIZATION: All CT scans at this facility use at least one of these dose optimization te chniques: automated exposure control; mA and/or kV adjustment per patient size (includes targeted exa ms where dose is matched to clinical indication); or iterative reconstruction.
--- NOTE | 2022-12-26 09:11 | W.ED.GENAD ---
Discharge Plan Disposition Patient Disposition: Home Discharge Details Clinical Impression: Constipation, Chronic neutropenia Primary Care Provider: Nimo Burk V ED Provider: Adrienne Quintero Home Meds and New Rx's Prescriptions: No Action levalbuterol tartrate [Xopenex HFA] 15 GM HFA aerosol inhaler 15 gm Inhalation Q6H PRN PRN Patient Comments: pt states not taking cholecalciferol (vitamin D3) [Vitamin D3] 2,000 UNIT capsule 2,000 unit PO BID PreserVision AREDS-2 250-90-40-1 mg capsule 1 tab PO BID Patient Comments: pt states not taking simvastatin 10 mg tablet 10 mg PO DAILY Patient Comments: pt states not taking bupropion HCl 150 mg tablet extended release 24 hr 150 mg PO QAM trazodone 50 mg tablet 50 mg PO DAILY Patient Comments: pt states not taking zolpidem 10 mg tablet 10 mg PO DAILY Neupogen 480 mcg/1.6 mL solution 480 mcg subcut DAILY Patient Comments: pt states not taking pantoprazole 40 mg tablet,delayed release (DR/EC) 40 mg PO DAILY Patient Comments: pt states not taking fluticasone propionate [Allergy Relief (fluticasone)] 50 mcg/actuation spray,suspension 1 spray intranasal BID Rx Instructions: administer into each nostril aspirin [Aspir-81] 81 MG tablet,delayed release (DR/EC) 81 mg PO DAILY calcium carbonate [Calcium 500] 500 MG tablet 500 mg PO DAILY AM nitroglycerin [Nitrostat] 0.4 mg Tablet, Sublingual 0.4 mg sublingual PRN PRN fexofenadine 180 mg tablet 180 mg PO DAILY Patient Comments: TAKE ONE TABLET BY MOUTH ONCE DAILY docusate sodium [Colace] 100 mg Capsule 100 mg PO TID PRN PRNQty: 0 0RF ibuprofen [IBU] 600 mg Tablet 600 mg PO Q8H Qty: 30 0RF Patient Comments: pt states not taking acetaminophen [Tylenol] 325 mg Tablet 650 mg PO Q4H PRN PRNQty: 0 0RF Discharge Instructions Instructions: Constipation (ED), Abdominal Pain (ED), Neutropenia (ED) Additional Instructions: I did speak with heme oncology at [facility] they okayed for you to go to [facility]. It does appear that this may be constipation on the abdominal CT. There is no new masses, no obstruction no free fluid or signs of perforation at this time. However if you do have any signs of infection like fever chills or worsening pain please be seen again. Follow up with primary care provider in 3-5 days. Return to ED sooner if any worsening or concerns. Increase oral fluids. Please take Tylenol with food every 4-6 hours as needed for pain and swelling. Referrals: Nimo Burk MD [Primary Care Provider] - 3 days Discharge Data Discharge Date/Time-TO BE ENTERED AT DEPARTURE: 12/26/22 11:13 Medical Decision Making 82-year-old female with a past medical history of GERD asthma, colectomy, colon cancer who recently had a colonoscopy at [facility] on December 07 with reported need for polypectomy and finding 9 polyps per pt report, presents with lower abdominal bloating and left lower quadrant abdominal pain which seems to be getting worse. She did have a bowel movement this morning. She denies any hematochezia, no mucus in her stools denies any diarrhea. She denies any nausea vomiting, chills or fever no other associated symptoms. Work-up ordered including CBC CMP lipase urinalysis CT abdomen pelvis with IV contrast 500 cc normal saline bolus. I did offer analgesics or antiemetics which patient declined at this time. Patient has been taking Tylenol at home none this morning. Differential diagnosis includes but not limited to constipation, perforated polyp, or other etiology. She is due to follow-up to have the surgery at [facility]. 0933: Critical lab value received from lab and see neutropenic count 0.13 which indicates severe neutropenia this is chronic. Medical records obtained from [facility] she is followed by hematology/oncology at [facility]. White blood cells are 2.42 which is down from 4 on December 19, absolute neutrophil count was 0.30 in November CMP is largely within normal limits chloride is 109, calcium is low at 8.2 slightly, AST is 42, albumin 3.0 CT shows no acute abnormality large quantity of stool no obstruction no bowel wall thickening. 1030: [facility] Transfer center called to consult with Hematology Oncology to discuss patients labs and presentation, She does see Dr. Valentine Aiken. 1058: Spoke with Dr. Diallo with Heme/oncology discussed patient case and details who states that it is ok for patient to go out of the country as long as there is no source of infection or signs of infection which patient does not have at this time. I do suspect more constipation and the heme oncology Dr. Also agreed they were unable to personally review the images at this time however images were requested to be pushed to [facility]. We will plan to discharge patient with home care and follow-up care. We will discuss constipation care with patient. This text was generated using [employer] system, please disregard any oddities of phrase or misspellings. Medical Records Medical records reviewed: Yes I reviewed the patient's medical records. Medical records narrative: Heme oncology physician note obtained from June 2022 she does have Neupogen injections monthly last the end of November. The neutropenia does appear to be getting worse, Imaging Data Radiologic Study: Imaging: CT Scan Radiologist's impression: COMPARISON:? CT CT ABDOMEN ? PELVIS W from 12/05/2020 FINDINGS: ABDOMEN: Lung Bases: Normal where visualized. Liver: Normal density. No measurable mass. Gallbladder and biliary tract: No radiodense calculus or dilation.? Pancreas: Normal density, no abnormal calcifications or inflammatory process. Spleen: Normal. Kidneys: Normal size, contour and axis. No radiodense stones or obstructive uropathy. No suspicious masses seen. Adrenal glands: No masses seen. Abdominal Aorta: Abdominal portion non-dilated. Soft tissues: Unremarkable. PELVIS:? Bladder:? No gross wall thickening. No calculi.No focal mass. Bowel: Sigmoid anastomosis.? Large quantity of stool.? No obstruction. ? No bowel wall thickening. Peritoneal cavity: No ascites, collection or mesenteric inflammatory response. Bones: Severe degenerative changes in the spine.? Posterior fusion hardware from L3 through L5.? Right hip prosthesis. Reproductive organs: Status post hysterectomy.? Lymph nodes: Unremarkable.? Impression: No acute abnormality in the abdomen and pelvis. Lab Data Lab results reviewed: Yes I reviewed the patient's lab results. Labs: Laboratory Tests Range/Units 12/26/22 12/26/22 09:25 09:25 WBC (4.4-10.8) 10^3/uL 2.42 L RBC (3.93-5.22) 10^6/uL 4.45 Hgb (11.2-15.7) g/dL 12.9 Hct (36.0-46.0) % 39.8 MCV (80-95) fL 89 MCH (27.0-33.0) pg 29.0 MCHC (32.0-36.0) % 32.4 RDW (11.7-14.6) % 14.0 Plt Count (130-400) 10^3/uL 284 MPV (8.0-11.0) fL 8.4 Immature Gran % 0.0 Neutrophils % 5.4 Lymphocytes % 72.7 Monocytes % 16.5 Eosinophils % 3.3 Basophils % 2.1 Nucleated RBC % (0.0-0.3) % 0.0 Absolute Neutrophils (1.2-6.7) 10^3/uL 0.13 L* Absolute Lymphocytes (1.2-3.4) 10^3/uL 1.76 Absolute Monocytes (0.1-0.8) 10^3/uL 0.40 Absolute Eosinophils (0.0-0.7) 10^3/uL 0.08 Absolute Basophils (0.0-0.2) 10^3/uL 0.05 Sodium (136-145) mmol/L 142 Potassium (3.5-5.1) mmol/L 4.3 Chloride (98-107) mmol/L 109 H Carbon Dioxide (21.0-32.0) mmol/L 23.5 Anion Gap (3-11) mmol/L 9.5 BUN (7-18) mg/dL 16 Creatinine (0.55-1.02) mg/dL 0.9 Est GFR (CKD-EPI 2020) (mL/min/1.73m2) 64.63 Glucose (74-106) mg/dL 96 Calcium (8.5-10.1) mg/dL 8.2 L Magnesium (1.8-2.4) mg/dL 2.1 Total Bilirubin (0.2-1.0) mg/dL 0.3 AST (15-37) U/L 42 H ALT (14-59) U/L 43 Alkaline Phosphatase (46-116) U/L 103 Total Protein (6.4-8.2) g/dL 6.0 L Albumin (3.4-5.0) g/dL 3.0 L Lipase (16-77) U/L 48 HPI General Mode of arrival: ambulatory. Date/Time Provider Initiated Documentation: 12/26/22 08:52. Limitations to Documentation: no limitations. Information obtained by: patient, RN notes reviewed and old records reviewed. HPI Narrative: 82-year-old female with a past medical history of GERD asthma, colectomy, colon cancer who recently had a colonoscopy at [facility] on December 07 with reported need for polypectomy and finding 9 polyps per pt report, presents with lower abdominal bloating and left lower quadrant abdominal pain which seems to be getting worse. She did have a bowel movement this morning. She denies any hematochezia, no mucus in her stools denies any diarrhea. She denies any nausea vomiting, chills or fever no other associated symptoms. Related Data Home Medications Medication Instructions Recorded Confirmed aspirin 81 mg tablet,delayed 81 mg PO DAILY 06/07/13 12/26/22 release (Aspir-) calcium carbonate 500 mg calcium 500 mg PO DAILY AM 06/07/13 12/26/22 (1,250 mg) tablet (Calcium 500) cholecalciferol (vitamin D3) 50 2,000 unit PO BID 06/12/17 12/26/22 mcg (2,000 unit) capsule (Vitamin D3) levalbuterol tartrate 45 15 gm inhalation Q6H PRN PRN 06/12/17 09/05/22 mcg/actuation aerosol inhaler (Xopenex HFA) nitroglycerin 0.4 mg sublingual 0.4 mg sublingual PRN PRN 08/30/19 12/26/22 tablet (Nitrostat) fexofenadine 180 mg tablet 180 mg PO DAILY 04/11/20 12/26/22 acetaminophen 325 mg tablet 650 mg PO Q4H PRN PRN #0 tabs 04/12/20 12/26/22 (Tylenol) docusate sodium 100 mg capsule 100 mg PO TID PRN PRN #0 caps 04/12/20 12/26/22 (Colace) ibuprofen 600 mg tablet (IBU) 600 mg PO Q8H #30 tabs 04/12/20 09/05/22 bupropion HCl 150 mg 24 hr tablet, 150 mg PO QAM 01/09/22 12/26/22 extended release simvastatin 10 mg tablet 10 mg PO DAILY 01/09/22 09/05/22 trazodone 50 mg tablet 50 mg PO DAILY 01/09/22 09/05/22 vit C 250 mg-vit E 90 mg-zinc 40 1 tab PO BID 01/09/22 09/05/22 mg-copper 1 [id number] capsule (PreserVision AREDS-2) zolpidem 10 mg tablet 10 mg PO DAILY 03/05/22 12/26/22 filgrastim 480 mcg/1.6 mL 480 mcg subcut DAILY 08/07/22 09/05/22 injection solution (Neupogen) fluticasone propionate 50 1 spray intranasal BID 08/07/22 12/26/22 mcg/actuation nasal spray,suspension (Allergy Relief (fluticasone)) pantoprazole 40 mg tablet,delayed 40 mg PO DAILY 08/07/22 09/05/22 release Previous Rx's Medication Instructions Recorded acetaminophen 325 mg tablet 650 mg PO Q4H PRN PRN #0 tabs 04/12/20 (Tylenol) docusate sodium 100 mg capsule 100 mg PO TID PRN PRN #0 caps 04/12/20 (Colace) ibuprofen 600 mg tablet (IBU) 600 mg PO Q8H #30 tabs 04/12/20 Allergies Allergy/AdvReac Type Severity Reaction Status Date / Time Penicillins Allergy Severe swelling Verified 12/26/22 08:56 Sulfa (Sulfonamide Allergy Unknown Verified 12/26/22 08:56 Antibiotics) diazepam [From Valium] AdvReac Severe it sent me Verified 12/26/22 08:56 on a trip propoxyphene HCl AdvReac Severe sent me on Verified 12/26/22 08:56 [From [place]] a trip General Stated Complaint: Abd Prob MELISSA: 3 Review of Systems All systems reviewed & are unremarkable except as noted in HPI and below Constitutional Constitutional: Reports as per HPI, Denies body ache(s), Denies chills and Denies fever(s) Cardiovascular Cardiovascular: Denies chest pain and Denies dyspnea Respiratory Respiratory: Denies cough, Denies dyspnea and Denies wheezing Gastrointestinal Gastrointestinal: Reports as per HPI, Reports abdominal pain, Denies melena, Denies hematochezia, Denies coffee ground emesis, Reports constipation (Occasionally takes colace, none today), Denies diarrhea, Denies nausea, Denies vomiting and Denies hematemesis Genitourinary Genitourinary: Reports as per HPI Comments: Denies Dysuria or problems urinating Allergic/Immunologic Allergic/Immunologic: Denies wheezing PFSH All Active Problems (Updated 12/26/22 @ 11:09 by Adrienne Quintero NP) Constipation (Acute) Chronic neutropenia (Acute) Biceps tendinitis of right shoulder (Acute) Bursitis of right shoulder (Acute) Vertigo (Acute) Renal insufficiency (Chronic) Prediabetes (Acute) Weakness of right leg (Acute) Asthma (Chronic) GERD (gastroesophageal reflux disease) (Chronic) Chest pain (Acute) Back pain with radiculopathy (Acute) Effusion, left knee (Acute) GERD (gastroesophageal reflux disease) (Chronic) Lung nodule seen on imaging study (Acute) Macular degeneration (Chronic) Abnormal auditory perception (Acute 03/27/13) Laboratory examination ordered as part of a routine general medical examination (Acute 02/11/13) Routine gynecological examination (Acute 02/11/13) Sensorineural hearing loss, bilateral (Acute 03/27/13) Medical History Depression Neutropenia Chronic benign neutropenia, Neupogen recommended prior to all invasive procedures and dental work Thyroid nodule Surgical History back surgery continues with lumbar pain. Is considering another steroid inj. 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 eye surgery cataract repair History of cataract surgery macular degeneration eye surgery Total replacement of hip Right. 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 Appears stated age. Normal body habitus. Head: Normocephalic, no trauma. Eyes: Pupils PERRL, Red reflex noted, EOM's intact. Eyelids symmetrical without lesions, discharge, or swelling. ENT: Bilateral TM's WNL, External ear normal to inspection, no mastoid TTP, swelling, or erythema, Nasal turbinates WNL, no nasal discharge. Normal dentition, Posterior pharynx WNL, no exudate. Chest: RRR, Normal S1, S2, distal pulses intact. Resp: Lungs clear to auscultation bilaterally, no wheezes, rales, or rhonchi. Abdomen: Soft, non-distended, mild lower abdominal bloating, hypooactive bowel sounds all 4 quads. Tenderness with palpation LLQ, no masses, no guarding. Musculoskeletal: Normal gait, 5/5 strength to all four extremities. Skin: No suspicious rashes or lesions. Capillary refill less than 2 sec. Neurologic: Cranial nerves II-XII intact. Alert and oriented x 3. Motor: No deficits noted. Sensory: Intact bilaterally all 4 extremities. Reflexes: DTR's intact bilaterally.. Hematologic/Lymphatic: No ecchymosis, no lymphadenopathy. Course Vital Signs Vital signs: Vital Signs Temperature 36.8 C 12/26/22 08:51 Pulse 77 12/26/22 08:51 Respiratory Rate 18 12/26/22 08:51 Blood Pressure 126/81 12/26/22 08:51 Pulse Oximetry 97 12/26/22 08:51 Temperature 36.8 C 12/26/22 08:51 Temperature Source Skin 12/26/22 08:51 Pulse 77 12/26/22 08:51 Respiratory Rate 18 12/26/22 08:51 Blood Pressure 126/81 12/26/22 08:51 Blood Pressure Position Sitting 12/26/22 08:51 Pulse Oximetry 97 12/26/22 08:51 Oxygen Delivery Method Room Air 12/26/22 08:51 Oxygen Flow Rate 0 12/26/22 08:51 Pain Level 4 12/26/22 08:51
[2022-12-26 09:31] LABS: Absolute Basophil Count 0.05 10^3/uL (0.0-0.2); Absolute Eosinophil Count 0.08 10^3/uL (0.0-0.7); Absolute Lymphocyte Count 1.76 10^3/uL (1.2-3.4); Basophils % 2.1; Eosinophils % 3.3; HCT 39.8 % (36.0-46.0); HGB 12.9 g/dL (11.2-15.7); Lymphocytes % 72.7; MCHC 32.4 % (32.0-36.0); MCV 89 fL (80-95); MPV 8.4 fL (8.0-11.0); Monocytes % 16.5; Neutrophils % 5.4; Platelet Count 284 10^3/uL (130-400); RBC 4.45 10^6/uL (3.93-5.22); RDW-SD 46.4 fL; WBC 2.42 10^3/uL (4.4-10.8)
[2022-12-26 09:33] LABS: Absolute Neutrophil Count 0.13 10^3/uL (1.2-6.7)
[2022-12-26 09:52] LABS: ALT 43 U/L (14-59); AST 42 U/L (15-37); Alkaline Phosphatase 103 U/L (46-116); Anion Gap 9.5 mmol/L (3-11); BUN 16 mg/dL (7-18); Bilirubin, Total 0.3 mg/dL (0.2-1.0); CO2 23.5 mmol/L (21.0-32.0); CREATININE 0.9 mg/dL (0.55-1.02); Calcium 8.2 mg/dL (8.5-10.1); Chloride 109 mmol/L (98-107); Estimated GFR 64.63 (mL/min/1.73m2); Glucose 96 mg/dL (74-106); Lipase 48 U/L (16-77); Magnesium 2.1 mg/dL (1.8-2.4); Potassium 4.3 mmol/L (3.5-5.1); Sodium 142 mmol/L (136-145)
[2022-12-26] MEDS: Normal Saline - Diluent 50 ML VIAL IJ (09:55)
[2022-12-26] MEDS: Omnipaque 350 MG/ML 100 ML BTL IJ (09:56)
[2022-12-26] MEDS: Normal Saline Flush 10 ML SYR IVP (09:57)
[2022-12-26 10:44] LABS: Bilirubin Negative (Negative); Blood Negative (Negative); Clarity Clear (Clear); Glucose Negative (Negative); Ketones Negative (Negative); Leukocyte Esterase Negative (Negative); Nitrite Negative (Negative); Specific Gravity <= 1.005 (1.005-1.025); Urobilinogen 0.2 mg/dL (Up to 0.2)
[2022-12-26 11:00] VITALS: BP 136/86; PULSE 76; RESP 14; O2SAT 99
== END 2022-12-26 11:13 | disposition home or self-care (01) ==
PROVIDERS: Emergency Provider Registered Nurse Emergency; PCP Family Medicine
DX: K59.00 Constipation, unspecified (principal); D70.8 Other neutropenia; R14.0 Abdominal distension (gaseous); Z79.811 Long term (current) use of aromatase inhibitors; Z98.890 Other specified postprocedural states; Z90.49 Acquired absence of other specified parts of digestive tract; Z85.038 Personal history of other malignant neoplasm of large intestine; Z87.891 Personal history of nicotine dependence
CPT/HCPCS: 80053; 83690; 99285; 74177; 81003; 83735; 85025; J3490

== ENCOUNTER 2023-02-19 19:26 | Outpatient (REF) | payer MEDICARE, SELFPAY ==
[2023-02-19 19:52] LABS: C-Reactive Protein 1.36 mg/dL (0.0-0.3); TSH (W/Ref FT4) 0.28 uIU/mL (0.36-3.74)
[2023-02-19 19:55] LABS: Hemoglobin A1C 6.1 % (<5.7)
[2023-02-19 20:08] LABS: FREE T4 1.02 ng/dL (0.76-1.46)
[2023-02-19 21:01] LABS: Vitamin B12 320 pg/mL (193-986)
[2023-02-21 11:16] LABS: Lyme Ab w Rflx to Lyme Confirm Negative (Negative)
[2023-02-21 13:45] LABS: Albumin 59.5 % (55.8-66.1); Albumin g/dL 3.9 g/dL (3.6-5.2); Total Protein 6.6 g/dL (6.3-8.2)
== END 2023-02-19 19:27 | disposition home or self-care (01) ==
LOC: NCHCN 19:26
PROVIDERS: PCP Family Medicine; Visit Provider Family Medicine
DX: Z00.00 Encounter for general adult medical examination without abnormal findings (principal); G62.9 Polyneuropathy, unspecified; R73.03 Prediabetes; N28.9 Disorder of kidney and ureter, unspecified; Z86.2 Personal history of diseases of the blood and blood-forming organs and certain disorders involving the immune mechanism; Z85.038 Personal history of other malignant neoplasm of large intestine
CPT/HCPCS: 82607; 83036; 84165; 84439; 84443; 86140; 86618

== ENCOUNTER → 2023-03-05 08:15 | Outpatient (BNVA) | payer MEDICARE, SELFPAY | PROVIDERS: PCP Family Medicine; Referring Provider Neurological Surgery; Visit Provider Psychiatry & Neurology Neurology | DX: M25.511 Pain in right shoulder (principal); M25.512 Pain in left shoulder; R20.0 Anesthesia of skin; M25.572 Pain in left ankle and joints of left foot; M25.571 Pain in right ankle and joints of right foot; M75.21 Bicipital tendinitis, right shoulder; M75.51 Bursitis of right shoulder | CPT/HCPCS: 99215 ==

== ENCOUNTER → 2023-04-16 00:52 | Outpatient (CLI) | payer MEDICARE, SELFPAY ==
--- NOTE | 2023-04-16 | DI.US_ITS ---
Exam(s) US THYROID EXAM: US THYROID CLINICAL HISTORY: Nontoxic single thryoid nodule. E04.1. TECHNIQUE: Ultrasound thyroid performed using standard protocol. COMPARISON: CT CT ABDOMEN PELVIS W from 12/05/[address] CHEST WO from 06/02/2021 MR MR CERVICAL SPINE WO from 11/23/2022 FINDINGS: ISTHMUS: 2 mm RIGHT LOBE: Size: 5.0 x 1.9 x 1.5 cm Echogenicity: Heterogeneous Vascularity: Normal. Nodules: Small cystic and spongiform nodules. LEFT LOBE: Size: 5.9 x 2.8 x 1.8 cm Echogenicity: Heterogeneous Vascularity: Normal. Nodules: 1. 2.9 x 1.5 x 1.3 centimeter solid isoechoic nodule, smoothly marginated, taller than wide . No echogenic foci. TR 4. FNA recommended. A few additional small cystic and spongiform nodules are seen. OTHER FINDINGS: No adenopathy. IMPRESSION: 2.9 centimeter nodule lower pole left lobe of the thyroid. TR 4. FNA recommended. DATA REPOSITORY:
== END ==
PROVIDERS: PCP Family Medicine; Visit Provider Family Medicine
DX: E04.1 Nontoxic single thyroid nodule (principal)
CPT/HCPCS: 76536

== ENCOUNTER → 2023-04-26 00:24 | Outpatient (CLI) | payer MEDICARE, SELFPAY ==
--- NOTE | 2023-04-26 | DI.MRI_ITS ---
Exam(s) MR UPPER JOINT RT WO EXAM: MR UPPER JOINT RT WO CLINICAL HISTORY: PAIN JOINT RT SHOULDER, M25.511, NUMBNESS, R20.0, RADICULOPATHY CERVICAL. TECHNIQUE: Multiplanar multisequence MRI was performed. COMPARISON: Films 28 June 2022 FINDINGS: Exam mildly limited by motion. BONES: There is no fracture or contusion pattern. Degenerative signal changes in the humeral head. JOINTS:The acromioclavicular joint shows some fluid and mild inferior spurring. The glenohumeral vicki nt is normal. TENDONS: Supraspinatus: Thickening and high signal. No focal tear visible. Infraspinatus: Unremarkable. Subscapularis: question of partial tear. Teres Minor: Unremarkable. Biceps and [place]: The biceps tendon appears split with mild subluxation of the medial portion at the lesser tuberosity. MUSCLES: Unremarkable. GLENOID LABRUM: No gross labral defect. SOFT TISSUES: Small synovial cyst or ganglion subcoracoid region. This could also represent a parala bral cyst. OTHER: Subacromial and subdeltoid bursae shows minimal fluid.. IMPRESSION: Supraspinatus tendinosis. Apparent split of the long head of the biceps tendon with medial subluxation. Tendinitis versus partial tear of the subscapularis. DATA REPOSITORY:
== END ==
PROVIDERS: PCP Family Medicine; Visit Provider Psychiatry & Neurology Neurology
DX: S46.111A Strain of muscle, fascia and tendon of long head of biceps, right arm, initial encounter (principal); X58.XXXA Exposure to other specified factors, initial encounter
CPT/HCPCS: 73221

== ENCOUNTER 2023-06-13 09:08 | Emergency (ER) | payer MEDICARE, SELFPAY ==
[2023-06-13 09:12] VITALS: BP 180/91; PULSE 71; RESP 18; TEMP 36.7; O2SAT 97
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
[2023-06-13] MEDS: oxyCODONE 5 mg/Acetaminophen 325 mg TAB 1 TAB PO (09:45)
[2023-06-13] MEDS: Cyclobenzaprine 10 MG TAB PO (09:45)
[2023-06-13] MEDS: Lidocaine 5% Patch 1 PATCH TP (09:46)
--- NOTE | 2023-06-13 10:19 | DI.RAD_ITS ---
Exam(s) XR LUMBAR SPINE COMPLETE EXAM: XR LUMBAR SPINE COMPLETE CLINICAL HISTORY: Lumbar Pain, radiculopathy. TECHNIQUE: 2D digital imaging was performed. COMPARISON: CR XR LUMBAR SPINE AP, LAT from 07/13/2020 FINDINGS: Five views. Again noted is tri level posterior fusion hardware at L3, L4, and L5 levels with posterior fusion smitha s again noted to be secured by bilateral intrapedicular screws at these 3 levels and there are also i ntervertebral disc space devices at L3-4 and L4-5 levels which appear unchanged in position. There i s no evidence of hardware fracture or migration and no evidence of osteomyelitis. Mild anterolisthes is L3 upon L4 and L4 upon L5 is unchanged as is the disc space narrowing at L5-S1. In IMPRESSION: Findings as above. Unchanged from 07/13/2020. DATA REPOSITORY: RADIATION DOSE DELIVERED:
== END 2023-06-13 11:05 | disposition home or self-care (01) ==
PROVIDERS: Emergency Provider Registered Nurse Emergency; PCP Family Medicine
DX: M54.42 Lumbago with sciatica, left side (principal); Z98.1 Arthrodesis status; Z79.82 Long term (current) use of aspirin; Z87.891 Personal history of nicotine dependence
CPT/HCPCS: 99283; 72110

== ENCOUNTER 2023-06-19 02:29 | Outpatient (CLI) | payer MEDICARE, SELFPAY ==
[2023-06-19 09:07] LABS: Absolute Basophil Count 0.03 10^3/uL (0.0-0.2); Absolute Eosinophil Count 0.07 10^3/uL (0.0-0.7); Absolute Lymphocyte Count 1.87 10^3/uL (1.2-3.4); Absolute Monocyte Count 0.48 10^3/uL (0.1-0.8); Basophils % 1.1; Eosinophils % 2.5; HCT 42.1 % (36.0-46.0); HGB 13.7 g/dL (11.2-15.7); Lymphocytes % 67.8; MCH 29.1 pg (27.0-33.0); MCHC 32.5 % (32.0-36.0); MCV 90 fL (80-95); MPV 8.2 fL (8.0-11.0); Monocytes % 17.4; Neutrophils % 11.2; Platelet Count 213 10^3/uL (130-400); RDW 14.4 % (11.7-14.6); RDW-SD 47.3 fL; WBC 2.76 10^3/uL (4.4-10.8)
[2023-06-19 09:22] LABS: Absolute Neutrophil Count 0.31 10^3/uL (1.2-6.7)
[2023-06-19 09:23] LABS: ALT 31 U/L (14-59); AST 23 U/L (15-37); Albumin 3.5 g/dL (3.4-5.0); Alkaline Phosphatase 82 U/L (46-116); Anion Gap 9.8 mmol/L (3-11); BUN 26 mg/dL (7-18); Bilirubin, Total 0.4 mg/dL (0.2-1.0); CO2 26.2 mmol/L (21.0-32.0); CREATININE 1.1 mg/dL (0.55-1.02); Calcium 9.2 mg/dL (8.5-10.1); Chloride 104 mmol/L (98-107); Diff Comment Diff Reviewed; Glucose 104 mg/dL (74-106); Potassium 3.7 mmol/L (3.5-5.1); RBC Morphology Normal; Sodium 140 mmol/L (136-145); Total Protein 6.8 g/dL (6.4-8.2)
== END 2023-06-19 02:30 | disposition home or self-care (01) ==
LOC: LBO 02:29
PROVIDERS: PCP Family Medicine; Visit Provider Internal Medicine Hematology & Oncology
DX: D70.9 Neutropenia, unspecified (principal)
CPT/HCPCS: 36415; 80053; 85025

== ENCOUNTER 2023-06-21 13:34 | Outpatient (REF) | payer MEDICARE, SELFPAY ==
[2023-06-25 22:02] LABS: Creatinine, Random,U 163 mg/dL (16 - 326); Iodine/Creat Ratio, U 98 mcg/g Cr (<584)
== END 2023-06-21 13:35 | disposition home or self-care (01) ==
LOC: NCHCN 13:34
PROVIDERS: PCP Family Medicine; Visit Provider Family Medicine
DX: E04.1 Nontoxic single thyroid nodule (principal)
CPT/HCPCS: 82570; 83789

== ENCOUNTER → 2023-06-28 00:46 | Outpatient (CLI) | payer MEDICARE, SELFPAY ==
--- NOTE | 2023-06-28 13:10 | DI.RAD_ITS ---
Exam(s) XR HIP LT COMPLETE AP PELVIS EXAM: XR HIP LT COMPLETE AP PELVIS CLINICAL HISTORY: RADICULOPATHY M54.10 NERVE ROOT DISORDER. TECHNIQUE: 2D digital imaging was performed of the left hip. Three views were obtained. AP pelvis and lateral left hip views were obtained. COMPARISON: CR XR HIP RT COMPLETE AP PELVIS from 08/04/2021 FINDINGS: BONES: No acute fracture is present. No bony destructive lesion is seen. JOINTS: No dislocation present. There are stable moderate degenerative changes in the left hip charac terized by joint space narrowing and osteophytes. There is a old right total hip replacement. Degen erative changes are seen at the sacroiliac joints bilaterally. Postsurgical changes are seen in the lower lumbar spine. These findings are incompletely imaged. SOFT TISSUE: Normal. IMPRESSION: Moderate degenerative changes in the left hip. DATA REPOSITORY: RADIATION DOSE DELIVERED:
== END ==
PROVIDERS: PCP Family Medicine; Visit Provider Family Medicine
DX: M16.11 Unilateral primary osteoarthritis, right hip (principal)
CPT/HCPCS: 73502

== ENCOUNTER 2023-07-04 17:24 | Emergency (ER) | payer MEDICARE, SELFPAY ==
[2023-07-04 17:27] VITALS: BP 155/82; PULSE 80; RESP 18; TEMP 36.6; O2SAT 96
--- NOTE | 2023-07-04 17:30 | DI.CT_ITS ---
Exam(s) CT ABDOMEN PELVIS W EXAM: CT ABDOMEN PELVIS W CLINICAL HISTORY: LLQ tenderness TECHNIQUE: Imaging Protocol: Axial computed tomography images with coronal and sagittal reformatted images were created and reviewed. CONTRAST MATERIAL: Intravenous: Omnipaque 350 Contrast volume:100 mL Oral: No COMPARISON: CT CT ABDOMEN PELVIS W from 12/05/[address] CHEST WO from 06/02/[address] ABDOMEN PELVIS W from 12/26/2022 FINDINGS: ABDOMEN: Lung Bases: There is atelectasis seen in the lung bases. Liver: Normal density. No measurable mass. Portal, Superior Mesenteric, and Splenic Veins: Unremarkable. Gallbladder and Biliary Tract: No radiodense calculus or dilation. Pancreas: Normal density, no abnormal calcifications or inflammatory process. Spleen: Normal. Adrenals: No masses seen. Kidneys: Normal size, contour and axis. No radiodense stones or obstructive uropathy. No masses seen. Abdominal Aorta: Abdominal portion non-dilated. Atherosclerotic calcification is present. Bowel: There is a rectosigmoid anastomosis present. There is no bowel wall thickening or obstruction . There is no evidence of appendicitis. Peritoneal Cavity: No ascites, collection or mesenteric inflammatory response. No free air. Lymph Nodes: Within normal limits. Bones: Within normal limits for the patient's age. Postsurgical changes are seen in the lower lumbar spine. The patient has a right total hip replacement. There is anterolisthesis of L3 on L4 and L4 on L5. Soft Tissues: Unremarkable. PELVIS: Bladder: The urinary bladder is incompletely distended limiting evaluation. Reproductive Organs: Status post hysterectomy. Lymph Nodes: Within normal limits. Bones: Within normal limits for the patient's age. IMPRESSION: No acute abdominal or pelvic process. RADIATION DOSE DELIVERED: 551.04mGy.cm Total DLP DATA REPOSITORY: All CT scans at this facility are submitted to the National Radiology Data Registry (NRDR) Dose Index Registry (DIR) with the [employer] (ACR). RADIATION OPTIMIZATION: All CT scans at this facility use at least one of these dose optimization te chniques: automated exposure control; mA and/or kV adjustment per patient size (includes targeted exa ms where dose is matched to clinical indication); or iterative reconstruction.
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
[2023-07-04 18:02] VITALS: BP 155/82; PULSE 80; RESP 18; TEMP 36.6; O2SAT 96
[2023-07-04 18:11] LABS: Lactate 0.6 mmol/L (0.6-1.4)
[2023-07-04 18:14] LABS: Abs Immature Grans 0.01 10^3/uL (0.0-0.06); HCT 42.7 % (36.0-46.0); HGB 13.6 g/dL (11.2-15.7); MCH 28.7 pg (27.0-33.0); MCHC 31.9 % (32.0-36.0); MCV 90 fL (80-95); MPV 8.4 fL (8.0-11.0); Platelet Count 317 10^3/uL (130-400); RBC 4.74 10^6/uL (3.93-5.22); RDW-SD 47.1 fL; WBC 3.81 10^3/uL (4.4-10.8)
[2023-07-04 18:16] LABS: Bilirubin Negative (Negative); Blood Negative (Negative); Clarity Sl Cloudy (Clear); Glucose Negative (Negative); Ketones Negative (Negative); Leukocyte Esterase Negative (Negative); Nitrite Negative (Negative); Specific Gravity 1.025 (1.005-1.025); Urobilinogen 0.2 mg/dL (Up to 0.2); pH 5.5 (5-8)
[2023-07-04 18:18] LABS: ESR 11 mm/hr (0-30)
[2023-07-04 18:35] LABS: Absolute Basophil Count 0.04 10^3/uL (0.0-0.2); Absolute Eosinophil Count 0.08 10^3/uL (0.0-0.7); Absolute Monocyte Count 0.27 10^3/uL (0.1-0.8); Atypical Lymphocytes % 6
[2023-07-04 18:37] LABS: Lipase 73 U/L (16-77)
[2023-07-04 18:38] LABS: Absolute Neutrophil Count 0.53 10^3/uL (1.2-6.7)
[2023-07-04 18:40] LABS: ALT 24 U/L (14-59); AST 21 U/L (15-37); Albumin 3.9 g/dL (3.4-5.0); Alkaline Phosphatase 105 U/L (46-116); BUN 32 mg/dL (7-18); Bilirubin, Total 0.2 mg/dL (0.2-1.0); C-Reactive Protein < 0.50 mg/dL (<or=0.5); CREATININE 1.1 mg/dL (0.55-1.02); Calcium 9.8 mg/dL (8.5-10.1); Chloride 107 mmol/L (98-107); Diff Comment Diff Reviewed; Glucose 98 mg/dL (74-106); Potassium 4.1 mmol/L (3.5-5.1); RBC Morphology Normal; Sodium 142 mmol/L (136-145); Total Protein 7.6 g/dL (6.4-8.2)
[2023-07-04] MEDS: Omnipaque 350 MG/ML 100 ML BTL IJ (19:09)
[2023-07-04] MEDS: Normal Saline - Diluent 50 ML VIAL IJ (19:10)
[2023-07-04] MEDS: Normal Saline Flush 10 ML SYR IVP (19:10)
--- NOTE | 2023-07-04 19:30 | DI.VRAD_ITS ---
PROCEDURE INFORMATION: Exam: CT Abdomen And Pelvis With Contrast Exam date and time: 07/04/2023 19:01 Age: 82 years old Clinical indication: Abdominal pain; Other: Llq tenderness; Prior surgery; Surgery date: 6+ months; Surgery type: Lumbar spine surg TECHNIQUE: Imaging protocol: Computed tomography of the abdomen and pelvis with contrast. Contrast material: OMNI 350; Contrast volume: 100 ml; Contrast route: INTRAVENOUS (IV); COMPARISON: CT ABDOMEN PELVIS W 12/26/2022 10:01 FINDINGS: Liver: No mass. Gallbladder and bile ducts: No calcified stones. No ductal dilation. Pancreas: No ductal dilation. No masses. Spleen: No splenomegaly or focal lesions. Adrenal glands: No mass. Kidneys and ureters: No hydronephrosis. No renal masses. Stomach and bowel: Sigmoid colon anastomosis, satisfactory appearance. No colitis or diverticular disease. No focal pathology in the small bowel. Appendix: No evidence of appendicitis. Intraperitoneal space: No free air. No significant fluid collection. Vasculature: No abdominal aortic aneurysm. Lymph nodes: No significantly enlarged lymph nodes. Urinary bladder: Unremarkable as visualized. Reproductive: Hysterectomy. Bones/joints: Right total hip arthroplasty, intact as visualized. Multilevel lumbar fixation hardware with chronic appearing mild multilevel listhesis. No acute fracture or subluxation. Soft tissues: No suspicious lesions. IMPRESSION: 1. No acute findings. 2. Incidental findings as described. 3. Incidental findings as described. Dictated and Authenticated by: Jumana Sanchez MD. Ordering:ABRAM Zavala MD
[2023-07-04 19:41] VITALS: BP 159/83; PULSE 61; RESP 18; O2SAT 96
== END 2023-07-04 20:15 | disposition home or self-care (01) ==
PROVIDERS: Emergency Provider Physician Assistant; PCP Family Medicine
DX: R10.32 Left lower quadrant pain (principal); Z79.82 Long term (current) use of aspirin; Z87.891 Personal history of nicotine dependence; Z85.038 Personal history of other malignant neoplasm of large intestine
CPT/HCPCS: 36415; 80053; 83690; 85652; 99285; 74177; 81003; 83605; 85025; 86140; 99284; J3490

== ENCOUNTER → 2023-08-01 03:08 | Outpatient (CLI) | payer MEDICARE, SELFPAY ==
--- NOTE | 2023-08-01 | DI.DEXA_ITS ---
Exam(s) XR DEXA BONE DENSITY W/WO HAILEY EXAM: XR DEXA BONE DENSITY W/WO HAILEY CLINICAL HISTORY: AYMPTOMATIC POSTMENOPAUSAL STATE, Z78.0 TECHNIQUE: COMPARISON: DX DEXA BONE DENSITY WITH HAILEY from 11/14/2017 FINDINGS: Lateral Spine Image: Posterior spinal surgery and discectomies are seen at L3 through L5. Left hip: Total T-Score: -2.0. This compares to -1.8 on the prior examination. Total Z-Score: 0.1 T- and Z-scores: Findings are consistent with osteopenia. There is osteoporosis in the femoral neck with a T-score of -2.7. Limited lumbar Spine: Total T-Score: -0.9. This compares to -1.4 on the prior examination. Total Z-Score: 1.6 T- and Z-scores: Within normal limits. Note is made of osteoporosis in the right forearm with a total T-score of -4.0. There is a Z-score o f -0.9. This compares with a total T-score of -2.7 from the prior examination. IMPRESSION: Osteoporosis seen in the left femoral neck and the right forearm.
--- NOTE | 2023-08-01 | DI.MAMMO_ITS ---
Exam(s) MAMMO SCREENING EXAM: MAMMO SCREENING CLINICAL HISTORY: SCREENING, Z12.31 TECHNIQUE: Mammograms were interpreted according to the usual protocol including computer analysis w [employer] CAD system, tomosynthesis and C-view imaging. COMPARISON: 2017 through 2021 FINDINGS: The breasts are composed of scattered fibroglandular densities, Breast Density category B. No suspicious masses or suspicious microcalcifications are seen. No skin thickening or abnormal axillary lymph nodes are seen. There has been no significant change from prior exams. IMPRESSION: BI-RADS Category 1, Negative mammogram Yearly screening mammography is recommended. Breast Density - Category B, scattered fibroglandular densities. A negative radiographic report should not delay biopsy if a dominant or clinically suspicious mass is present. Up to ten percent of cancers are not identified on mammography. A negative report may reinforce clinical impression. Adenosis and dense breasts may obscure an underlying neoplasm. False positive reports average 6 to 10%. Patient will receive a letter notifying them of these results.
== END ==
PROVIDERS: PCP Family Medicine; Visit Provider Family Medicine
DX: Z12.31 Encounter for screening mammogram for malignant neoplasm of breast (principal); Z78.0 Asymptomatic menopausal state
CPT/HCPCS: 77063; 77067; 77080

== ENCOUNTER 2023-08-03 00:02 | Outpatient (RCR) | payer MEDICARE, SELFPAY ==
--- NOTE | 2023-08-06 10:42 | NUR.NOTE ---
08/02 at 1255: Pt arrived early for Neupogen shot. Shot administered by mortgage loan underwriter in the L Deltoid per pt request. Nursing Note:
== END 2023-08-11 23:59 | disposition home or self-care (01) ==
LOC: INF 00:02
PROVIDERS: PCP Family Medicine; Visit Provider Internal Medicine Hematology & Oncology
DX: D70.9 Neutropenia, unspecified (principal)
CPT/HCPCS: J1442

== ENCOUNTER 2023-08-18 01:08 | Emergency (ER) | payer MEDICARE, SELFPAY ==
[2023-08-18 01:11] VITALS: BP 168/96; PULSE 80; RESP 16; TEMP 36.3; O2SAT 99
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
[2023-08-18] MEDS: Acetaminophen 500 MG TAB 1000 MG PO (01:36)
[2023-08-18] MEDS: Ketorolac 15 MG/ML VIAL IM (01:36)
[2023-08-18 01:39] LABS: Bilirubin Negative (Negative); Blood Negative (Negative); Clarity Clear (Clear); Glucose Negative (Negative); Ketones Negative (Negative); Leukocyte Esterase Negative (Negative); Nitrite Negative (Negative); Specific Gravity 1.025 (1.005-1.025); pH 5.5 (5-8)
[2023-08-18] MEDS: HYDROmorphone 2 MG TAB PO ×2 (01:47→05:06)
[2023-08-18] MEDS: Gabapentin 100 MG CAP 200 MG PO (02:27)
[2023-08-18] MEDS: predniSONE 20 MG TAB 60 MG PO (02:28)
[2023-08-18] MEDS: Lidocaine 5% Patch 1 PATCH TP (02:28)
[2023-08-18 03:31] VITALS: BP 142/75; PULSE 72; RESP 16; O2SAT 100
--- NOTE | 2023-08-18 03:48 | DI.CT_ITS ---
Exam(s) CT LUMBAR SPINE RECONS EXAM: CT LUMBAR SPINE RECONS CLINICAL HISTORY: severe radicular L low back pain, hx spinal surger. TECHNIQUE: Imaging Protocol: Axial computed tomography images with coronal and sagittal reformatted images were created and reviewed COMPARISON: CT CT ABDOMEN PELVIS WO from 08/18/2023 FINDINGS: Bones: There is posterior fusion hardware at L3-L5, inclusive, supported by bilateral intrapedicular screws at these levels. There are intervertebral disc space device is at L3-4 and L4-5 levels. The re is anterolisthesis L 3 upon L4 and less so at L4 upon L5. No hardware fracture evident. Multilev el bilateral foraminal stenosis evident. There is mild central spinal canal stenosis at L2-3 which i s 1 level above the fusion. Evaluation of the spinal canal diffusion levels is somewhat limited tegan use of the beam hardening artifact but the absence of the posterior osseous elements at these levels implies that there is probably not prominent central canal stenosis. IMPRESSION: 1. Multilevel fusion L3-L5 levels with mild anterolisthesis L3 upon L4 and L4 upon L5 which is most p robably not acute. 2. Multilevel bilateral foraminal narrowing noted at these levels. 3. No fractures evident RADIATION DOSE DELIVERED: Total DLP DATA REPOSITORY: All CT scans at this facility are submitted to the National Radiology Data Registry (NRDR) Dose Index Registry (DIR) with the [employer] (ACR). RADIATION OPTIMIZATION: All CT scans at this facility use at least one of these dose optimization te chniques: automated exposure control; mA and/or kV adjustment per patient size (includes targeted exa ms where dose is matched to clinical indication); or iterative reconstruction.
--- NOTE | 2023-08-18 03:48 | DI.CT_ITS ---
Exam(s) CT ABDOMEN PELVIS WO EXAM: CT ABDOMEN PELVIS WO CLINICAL HISTORY: severe radicular L low back pain, hx spinal surger. TECHNIQUE: Imaging Protocol: Axial computed tomography images with coronal and sagittal reformatted images were created and reviewed CONTRAST MATERIAL: Intravenous: none Oral: None COMPARISON: CT CT ABDOMEN PELVIS W from 07/04/2023 FINDINGS: VISUALIZED LUNG BASES: No nodules nor pleural effusions evident. ABDOMEN: There is no ascites. LIVER: There are no obvious focal hepatic lesions evident of this noninfused study. GALLBLADDER/BILIARY: No obvious gallbladder pathology. CBD is not dilated. PANCREAS: No evidence of pancreatic mass nor dilatation of the pancreatic duct. SPLEEN: Spleen is not enlarged. No obvious intrasplenic lesions. ADRENALS: There are no significant adrenal masses. KIDNEYS:No cysts evident. No solid renal masses. No calculi nor hydronephrosis. . ABDOMINAL AORTA: Abdominal aorta is not enlarged. LYMPH NODES: There is no retroperitoneal nor paraaortic adenopathy. ABDOMINAL WALL: No evidence of significant anterior abdominal wall nor inguinal hernia. GI: There has been partial sigmoid resection. No obvious abnormality seen at the level of the anasto mosis although the area is partially obscured by beam hardening artifact from right hip prosthesis. PELVIS: LYMPH NODES: There is no intrapelvic nor inguinal adenopathy. GI: No evidence of appendicitis.No evidence of sigmoid diverticulitis. URINARY BLADDER: No calculi nor obvious masses evident REPRODUCTIVE: Uterus is atrophic or surgically absent. No abnormal adnexal masses seen. OSSEOUS: No significant osseous lesions. Right hip prosthesis Multilevel fusion surgery in the lumbar spine. IMPRESSION: 1. No acute findings in the abdomen pelvis. 2. Evidence of partial sigmoid resection and hysterectomy. No evidence of bowel obstruction, free ai r, nor abscess. There is no ascites. 3. Right hip prosthesis and multilevel spinal fusion surgery in the lumbar spine. RADIATION DOSE DELIVERED: Total DLP DATA REPOSITORY: All CT scans at this facility are submitted to the National Radiology Data Registry (NRDR) Dose Index Registry (DIR) with the [employer] (ACR). RADIATION OPTIMIZATION: All CT scans at this facility use at least one of these dose optimization te chniques: automated exposure control; mA and/or kV adjustment per patient size (includes targeted exa ms where dose is matched to clinical indication); or iterative reconstruction.
--- NOTE | 2023-08-18 04:37 | DI.VRAD_ITS ---
PROCEDURE INFORMATION: Exam: CT Abdomen And Pelvis Without Contrast Exam date and time: 08/18/2023 3:19 AM Age: 82 years old Clinical indication: Other: Severe radicular L low back pain, HX spinal surger; Prior surgery; Surgery date: 6+ months; Surgery type: Fusion; Additional info: PT unable to raise left arm above head due to previous shoulder injury. TECHNIQUE: Imaging protocol: Computed tomography of the abdomen and pelvis without contrast. COMPARISON: CT ABDOMEN PELVIS W 07/04/2023 7:01 PM FINDINGS: Liver: Normal. No mass. Gallbladder and bile ducts: Normal. No calcified stones. No ductal dilation. Pancreas: Unremarkable. Spleen: Normal. Adrenal glands: Normal. No mass. Kidneys and ureters: Normal. No hydronephrosis. Stomach and bowel: Unremarkable. No bowel wall thickening or intestinal obstruction. Appendix: Normal appendix. Intraperitoneal space: Unremarkable. No pneumoperitoneum. No abscess. Vasculature: Unremarkable. Lymph nodes: Unremarkable. Urinary bladder: Unremarkable as visualized. Reproductive: Hysterectomy. Bones/joints: L3-L5 vertebral fusion hardware. Degenerative changes. Reliable evaluation of the spinal canal is precluded by substantial beam hardening artifact. Right hip prosthesis. Slight scoliosis. Soft tissues: Unremarkable. IMPRESSION: No acute findings. Dictated and Authenticated by: Alessio Aguirre MD. Ordering:AIDAN Martinez MD
--- NOTE | 2023-08-18 04:47 | DI.VRAD_ITS ---
PROCEDURE INFORMATION: Exam: CT Lumbar Spine Without Contrast Exam date and time: 08/18/2023 3:19 AM Age: 82 years old Clinical indication: Other: Severe radicular L low back pain, HX spinal surger; Additional info: PT unable to raise left arm above head due to previous shoulder injury. TECHNIQUE: Imaging protocol: Computed tomography of the lumbar spine without contrast. COMPARISON: MR LUMBAR SPINE WO 04/04/2020 8:35 AM FINDINGS: Bones/joints: L3-L5 vertebral fusion hardware. Grade 1 anterolisthesis of L 3 on L4. Reliable evaluation of the central canal at these levels is precluded by substantial beam hardening artifact. Multilevel bilateral neural foraminal narrowing. Nerve root impingement not excluded on this study. No fracture. No evidence of discitis/osteomyelitis. Soft tissues: See Bones/joints finding. IMPRESSION: L3-L5 vertebral fusion hardware. Grade 1 anterolisthesis of L 3 on L4. Reliable evaluation of the central canal at these levels is precluded by substantial beam hardening artifact. Multilevel bilateral neural foraminal narrowing. Nerve root impingement not excluded on this study. Dictated and Authenticated by: Alessio Aguirre MD. Ordering:AIDAN Martinez MD
[2023-08-18] MEDS: HYDROmorphone 2 MG TAB 16 MG PO (05:06)
--- NOTE | 2023-08-18 05:09 | NUR.NOTE ---
Referral faxed to [facility] Dr Burk to f/u Saturday08/19/23 for sciatica.Nursing Note:
== END 2023-08-18 05:15 | disposition home or self-care (01) ==
PROVIDERS: Emergency Provider Student in an Organized Health Care Education/Training Program; PCP Family Medicine
DX: M54.42 Lumbago with sciatica, left side (principal); Z98.1 Arthrodesis status; Z96.641 Presence of right artificial hip joint; Z79.82 Long term (current) use of aspirin; Z87.891 Personal history of nicotine dependence
CPT/HCPCS: 99284; 74176; 81003; J1885; J7512

== ENCOUNTER → 2023-09-05 03:20 | Outpatient (CLI) | payer MEDICARE, SELFPAY ==
--- NOTE | 2023-09-05 | DI.MRI_ITS ---
Exam(s) MR LUMBAR SPINE WO/W EXAM: MR LUMBAR SPINE WO/W CLINICAL HISTORY: LOW BACK PAIN W/CO=OCCURRENT NEURALGIA RT SCIATIC NERVE,LUMBAGO,M54.41. TECHNIQUE: Multiplanar multisequence MRI of the Lumbar Spine was performed. CONTRAST MATERIAL: IV Contrast: 12 mL of Dotarem contrast administered. COMPARISON: MR MRI - LUMBAR SPINE WO CONTRAST from 10/14/2017 MR MR LUMBAR SPINE WO from 04/04/2020 FINDINGS: Bones: The last intervertebral disc space is designated the L5/S1 level for the numbering purpose of this examination. There is grade 1 anterolisthesis of L3 on L4 and L4 on L5. Postsurgical changes w ith posterior spinal rods and pedicle screws from L3 through L5. the signal characteristics are unre markable. Cord: The conus tip ends at the L1 level. It is of normal size and signal intensity. T12-L1: No disc herniations or bulges are present. No central spinal canal or neural foraminal stenos is. L1-2: No disc herniations or bulges are present. No central spinal canal or neural foraminal stenosis . L2-3: No disc herniations or bulges are present. No significant central spinal canal or left neural f oraminal stenosis. There does appear to be mild right neural foraminal stenosis. L3-4: No disc herniations or bulges are present. No significant central spinal canal stenosis appears neural foraminal evaluation is limited due to the artifact from the pedicle screws. The right neural foramen is largely obscured by artifact. No significantly foraminal stenosis is seen. L4-5: No disc herniations or bulges are present. No significant central spinal canal stenosis is seen . The neural foramen evaluation is limited due to artifact from the patient's pedicle screws. No si gnificant left neural foraminal stenosis is seen. There does appear to be some degree of right neura l foraminal stenosis. L5-S1: No disc herniations or bulges are present. No central spinal canal or right neural foraminal s tenosis. There is moderate left neural foraminal stenosis.There are degenerative changes of the face ts. Soft tissues: The visualized SI joints and sacrum are well maintained. The paraspinal soft tissues ar e unremarkable. There is no evidence of suspicious enhancement. IMPRESSION: 1. Examination is limited due to artifact from the patient's posterior spinal surgery and pedicle scr ews from L3 through L5. 2. No significant central spinal canal stenosis is noted. 3. Multilevel neural foraminal stenosis is seen as described above. 4. Grade 1 anterolisthesis of L3 on L4 and L4 on L5. DATA REPOSITORY:
[2023-09-05] MEDS: Normal Saline Flush 10 ML SYR IVP (14:03)
[2023-09-05] MEDS: Gadoterate meglumine 20 ML SYRINGE 12 ML IVP (14:05)
== END ==
PROVIDERS: PCP Family Medicine; Visit Provider Family Medicine
DX: M54.41 Lumbago with sciatica, right side (principal)
CPT/HCPCS: 72158

== ENCOUNTER → 2023-09-26 09:14 | Outpatient (BNVA) | payer MEDICARE, SELFPAY | PROVIDERS: PCP Family Medicine; Referring Provider Family Medicine; Visit Provider Student in an Organized Health Care Education/Training Program | DX: M70.62 Trochanteric bursitis, left hip (principal); M76.32 Iliotibial band syndrome, left leg; M16.12 Unilateral primary osteoarthritis, left hip | CPT/HCPCS: 99213 ==

== ENCOUNTER 2023-11-27 20:28 | Outpatient (CLI) | payer MEDICARE, SELFPAY ==
[2023-11-27 15:39] LABS: HCT 42.6 % (36.0-46.0); HGB 13.8 g/dL (11.2-15.7); MCH 29.6 pg (27.0-33.0); MCHC 32.4 % (32.0-36.0); MCV 91 fL (80-95); MPV 8.3 fL (8.0-11.0); Platelet Count 235 10^3/uL (130-400); RBC 4.67 10^6/uL (3.93-5.22); RDW 13.4 % (11.7-14.6); RDW-SD 45.5 fL; WBC 3.39 10^3/uL (4.4-10.8)
[2023-11-27 15:41] LABS: ESR 13 mm/hr (0-30)
[2023-11-27 17:31] LABS: Anion Gap 9.3 mmol/L (3-11); BUN 25 mg/dL (7-18); C-Reactive Protein < 0.50 mg/dL (<or=0.5); CO2 25.7 mmol/L (21.0-32.0); CREATININE 1.2 mg/dL (0.55-1.02); Calcium 9.3 mg/dL (8.5-10.1); Chloride 106 mmol/L (98-107); Estimated GFR 45.48 (mL/min/1.73m2); Glucose 91 mg/dL (74-106); Potassium 4.2 mmol/L (3.5-5.1); Sodium 141 mmol/L (136-145); TSH (W/Ref FT4) 0.45 uIU/mL (0.36-3.74)
== END 2023-11-27 20:29 | disposition home or self-care (01) ==
LOC: LBO 20:28
PROVIDERS: PCP Family Medicine; Visit Provider Family Medicine
DX: R53.83 Other fatigue (principal)
CPT/HCPCS: 36415; 80048; 85027; 85652; 84443; 86140

== ENCOUNTER → 2023-12-12 02:19 | Outpatient (CLI) | payer MEDICARE, SELFPAY ==
--- NOTE | 2023-12-12 | DI.CT_ITS ---
Exam(s) CT CHEST W EXAM: CT CHEST W CLINICAL HISTORY: Cough, R05.9 TECHNIQUE: Imaging Protocol: Axial computed tomography images with coronal and sagittal reformatted images were created and reviewed CONTRAST MATERIAL: Intravenous: Omnipaque 350 Contrast volume:structured data ml. COMPARISON: CT CT CHEST WO from 06/02/2021 FINDINGS: Pulmonary parenchyma: No consolidation. No dominant measurable mass. Minimal atelectasis right isaiah g base. Mild scarring in the lingula. No significant emphysematous or fibrotic changes. Tracheobronchial tree: No bronchiectasis or mucous plugging. Mediastinum and Leonarda: No dominant adenopathy or fluid collection. Pleura: No effusion. No pneumothorax. Heart: The heart is not dilated. Mild coronary artery calcifications are seen. Aorta: Thoracic aorta non-dilated. minimal atherosclerotic changes. Pulmonary arteries: No gross evidence of emboli. Upper abdomen: No acute findings. Bones: Mild degenerative changes in the spine. Prominent spur from the medial left 4th rib ext ending down to the 5th rib. Soft tissues: Unremarkable. IMPRESSION: No acute abnormality. RADIATION DOSE DELIVERED: Total DLP DATA REPOSITORY: All CT scans at this facility are submitted to the National Radiology Data Registry (NRDR) Dose Index Registry (DIR) with the [employer] (ACR). RADIATION OPTIMIZATION: All CT scans at this facility use at least one of these dose optimization te chniques: automated exposure control; mA and/or kV adjustment per patient size (includes targeted exa ms where dose is matched to clinical indication); or iterative reconstruction.
[2023-12-12] MEDS: Omnipaque 350 MG/ML 100 ML BTL IJ (14:13)
[2023-12-12] MEDS: Normal Saline - Diluent 50 ML VIAL IJ (14:15)
[2023-12-12] MEDS: Normal Saline Flush 10 ML SYR IVP (14:16)
== END ==
PROVIDERS: PCP Family Medicine; Visit Provider Family Medicine
DX: R05.3 Chronic cough
CPT/HCPCS: 71260; J3490

== ENCOUNTER 2024-01-23 01:48 | Outpatient (CLI) | payer MEDICARE, SELFPAY ==
--- NOTE | 2024-01-23 | DI.NM_ITS ---
APPROVED REPORT Exam: Exercise Treadmill Patient Location: Out-Patient Room/Bed: Stress Nurse: Amy Ortiz RN Ordering Provider:ZHANG CASTAÑEDA, Contact Number: [phone] BMI: 24.68 Baseline Rhythm: Sinus Rhythm Indications: chest pain Medical History Medical History: bilateral hearing loss, major depression, asthma, anemia, GERD, anxiety, HLD, neurop athy, heart murmur Cardiac Medications: Nitro, Simvastatin Allergies: PCN, Sulfa, diazepam, darvon Cardiac Risk Factors: +family history, +pre DM, +Asthma, +HLD, former smoker Previous Cardiac Procedures: None Pretest Chest Pain Characteristics: Pt reports chest tightness all the time, It is constant and she can't quantify it Exercise History: Sedentary Physical Disabilities: None Lung Sounds: Diminished Heart Sounds: S1/S2 Stress Test Details Test: Exercise stress testing was performed using a Presley protocol. Nuclear Acquisition: Rest Tc-99m/Stress Tc-99m 1 day Rest Isotope: Tc-99m Sestamibi. Dose: 10.1 Date: 01/23/2024 Injection Time: 11:10 Stress Isotope: Tc-99m Sestamibi. Dose: 32.5 Date: 01/23/2024 Injection Time: 12:35 HR Resting HR Supine: 66 bpm Max Heart Rate (APMHR): 139.049593 bpm Resting HR Standin bpm Target HR (85% APMHR): 118.665495 bpm Max HR Achieved: 122 bpm % of APMHR: 87.77 Recovery HR: 67 bpm HR response to stress: Normal HR response to stress BP Resting BP Supine: 152/84 mmHg Resting BP Standin/80 mmHg Max BP: 192/74 mmHg Recovery BP: 162/84 mmHg BP response to stress: Normal blood pressure response to stress. ECG Resting ECG: Sinus Rhythm Ectopy: None Stress ECG: Sinus Tachycardia ST Change: No significant ST segment changes noted Comment: PAC's Recovery ECG: Sinus Rhythm Recovery ST Change: No significant ST segment changes noted Recovery Arrhythmia: PAC's Clinical Reason for Termination: Fatigue, Target HR Achieved Stress Symptoms: General Fatigue Exercise duration: 4 min59 sec Highest Stage Reached: Stage 2: 2.5 mph at 12% grade. Exercise capacity: 7 METs Angina Score: Non-Limiting Rate Pressure Product: [id number] Stress ECG Conclusion 1. Resting electrocardiogram showed low voltage 2. The patient exercised on the Presley protocol and completed workload of 7 METS. Above average exerc ise capacity for age 3. Normal heart rate and blood pressure response to exercise. The patient achieved 88% of predicted heart rate for age 4. There was no electrocardiographic evidence of myocardial ischemia 5. There were no significant dysrhythmias 6. See MPI report Stress Test Summary STAGE Time (mins) Speed (mph) Grade (%) HR BP SpO2 SYMPTOMS METS Supine 66 152/84 96% Standing 73 144/80 1 3 1.7 10 107 168/70 93% 4.5 2 6 2.5 12 121 7 1 min recovery 103 192/74 3 min recovery 60 188/78 96% 6 min recovery 67 162/84 MPI Conclusion Myocardial perfusion is normal. There is no ischemia or evidence of prior infarction Ejection fraction is 79% with normal wall motion Radiologist Interpretation Radiologist agrees with Occupational Therapy Specialist's Interpretation. Radiologist Interpretation by: Eliz Bell MD Interpretation Date/Time: 01/24/2024 12:59:57
== END 2024-01-23 02:08 ==
LOC: DI 01:48
PROVIDERS: PCP Family Medicine; Visit Provider Family Medicine
DX: R07.9 Chest pain, unspecified (principal)
CPT/HCPCS: 78452; 93016; 93018; 93017

== ENCOUNTER 2024-03-24 02:43 | Outpatient (CLI) | payer MEDICARE, SELFPAY ==
--- NOTE | 2024-03-24 06:15 | DI.US_ITS ---
Exam(s) US THYROID EXAM: US THYROID CLINICAL HISTORY: Assess for change, no biopsies yet,multinodular thyroid goiter,e04.2. TECHNIQUE: Ultrasound thyroid performed using standard protocol. COMPARISON: CT CT CHEST PE CTA from 08/30/[address] CHEST WO from 06/02/2021 US US THYROID from 04/16/[address] CHEST W from 12/12/2023 FINDINGS: ISTHMUS: 2.5 mm RIGHT LOBE: Size: 4.2 x 1.2 x 1.1 cm Echogenicity: Normal. Vascularity: Normal. Nodules: Small cysts and spongiform nodules. LEFT LOBE: Size: 3.4 x 1.2 x 1.2 cm Echogenicity: Normal. Vascularity: Normal. Nodules: Previously noted nodule at the lower pole of the left lobe of the thyroid was not well demon strated on the current exam. Is located deep and better seen on chest CT examinations. It is stable in size from the prior CT exam and only slightly increased in size from 2020 exam. It measures 1.5 by 2.3 by 3.2 cm. It is solid,, isoechoic, smoothly marginated and without echogenic foci. It is ta ller than wide. TR 4. OTHER FINDINGS: None. IMPRESSION: No significant change in size of left thyroid nodule which is better demonstrated on CT examinations. DATA REPOSITORY:
--- NOTE | 2024-03-24 06:15 | DI.CT_ITS ---
Exam(s) CT SINUS WO EXAM: CT SINUS WO CLINICAL HISTORY: Chronic symptoms, unresponsive to treatment,chronic cough,postnasal drip,. Evalua te for sinusitis. TECHNIQUE: Imaging Protocol: Axial computed tomography images with coronal and sagittal reformatted images were created and reviewed. COMPARISON: CT HEAD WITH/WITHOUT CONTRAST from 03/18/2015 FINDINGS: Frontal sinuses: Normally aerated. Ethmoid air cells: Normally aerated. Maxillary sinuses: Normally aerated. Sphenoid sinuses: Normally aerated. Ostiomeatal complexes: Patent. Nasal cavity: Septum is mildly deviated to the right. Nasal cavity is clear. Visualized regional soft tissues: No acute findings. Orbits: Unremarkable. Bones: Unremarkable. Mastoid Air Cells: Fluid in the left mastoids. Temporomandibular joints show degenerative changes. Visualized portions of the brain: Unremarkable as visualized. IMPRESSION: Left mastoid effusion. No evidence of sinus disease. RADIATION DOSE DELIVERED: 93.28mGy.cm Total DLP DATA REPOSITORY: All CT scans at this facility are submitted to the National Radiology Data Registry (NRDR) Dose Index Registry (DIR) with the [employer] (ACR). RADIATION OPTIMIZATION: All CT scans at this facility use at least one of these dose optimization te chniques: automated exposure control; mA and/or kV adjustment per patient size (includes targeted exa ms where dose is matched to clinical indication); or iterative reconstruction.
== END 2024-03-24 03:03 ==
LOC: DI 02:43
PROVIDERS: PCP Family Medicine; Visit Provider Otolaryngology
DX: E04.2 Nontoxic multinodular goiter (principal); R05.3 Chronic cough; H69.92 Unspecified Eustachian tube disorder, left ear; R09.82 Postnasal drip
CPT/HCPCS: 70486; 76536

== ENCOUNTER 2024-05-17 21:23 | Emergency (ER) | payer MEDICARE, SELFPAY ==
[2024-05-17] VITALS (22 sets, daily range): BP systolic 145–185; BP diastolic 80–95; PULSE 53–77; RESP 9–26; TEMP 36.6; O2SAT 95–98
--- NOTE | 2024-05-17 21:15 | RT.EKG_ITS ---
APPROVED REPORT Exam: Resting ECG Reason for Exam: chest pain Patient Location: E HR:78 bpm ECG Measurements Heart Rate 78 AXIS ND 142 P 68 QRSd 76 QRS -23 QT 374 T 55 QTc 427 Conclusion Sinus rhythm...normal P axis, V-rate 60- 99 Probable left atrial enlargement...P >50mS, <-0.10mV V1 No STEMI
--- NOTE | 2024-05-17 21:30 | DI.RAD_ITS ---
Exam(s) XR CHEST 2V PA LATERAL EXAM: XR CHEST 2V PA LATERAL CLINICAL HISTORY: Chest pain. TECHNIQUE: 2D digital imaging was performed. COMPARISON: CR RIGHT RIBS TO INCLUDE CXR from 06/06/2013 CR XR CHEST 2V PA LATERAL from 06/08/2022 FINDINGS: 2 views: Heart size is normal. The mediastinum is not widened. There is some mild bilateral hyperinflation but no confluent infiltrates nor pleural effusions. No p ulmonary edema. Mild scarring in the left lung base above the hemidiaphragm is unchanged. Incidentally noted is a nonexpansile sclerotic bone lesion at the level the neck of the left humerus, unchanged from previous. Also unchanged from 2014. Therefore benign. 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 IMPRESSION: No acute pulmonary findings. Stable benign-appearing sclerotic bone lesion in the left humeral neck region. This was present on p rior imaging dating back to at least 2013 and therefore benign. DATA REPOSITORY: RADIATION DOSE DELIVERED:
[2024-05-17 22:19] LABS: ALT 25 U/L (14-59); AST 35 U/L (15-37); Albumin 3.4 g/dL (3.4-5.0); Alkaline Phosphatase 110 U/L (46-116); Anion Gap 4.7 mmol/L (3-11); BUN 12 mg/dL (7-18); Bilirubin, Total 0.32 mg/dL (0.2-1.0); CO2 29.3 mmol/L (21.0-32.0); CREATININE 1.1 mg/dL (0.55-1.02); Calcium 9.4 mg/dL (8.5-10.1); Chloride 105 mmol/L (98-107); Estimated GFR 50.48 (mL/min/1.73m2); Glucose 123 mg/dL (74-106); Lipase 55 U/L (<78); Magnesium 2.1 mg/dL (1.8-2.4); NT-proBNP 82 pg/mL (<300); Potassium 4.3 mmol/L (3.5-5.1); Sodium 139 mmol/L (136-145); Troponin I 9 ng/L (<or=51)
[2024-05-17] MEDS: Aspirin 81 MG CHEW 324 MG CH (22:26)
[2024-05-17] MEDS: Famotidine 20 MG/2 ML VIAL IVP (22:26)
[2024-05-17] MEDS: Normal Saline Flush 10 ML SYR IVP (22:26)
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
[2024-05-17 22:48] LABS: Lab Add On Test DONE
[2024-05-17 22:51] LABS: HCT 41.9 % (36.0-46.0); HGB 13.9 g/dL (11.2-15.7); MCHC 33.2 % (32.0-36.0); MCV 91 fL (80-95); Platelet Count 248 10^3/uL (130-400); RBC 4.63 10^6/uL (3.93-5.22); RDW 14.4 % (11.7-14.6); RDW-SD 48.2 fL; WBC 3.15 10^3/uL (4.4-10.8)
[2024-05-17 23:10] LABS: Troponin I 10 ng/L (<or=51)
--- NOTE | 2024-05-18 00:10 | DI.VRAD_ITS ---
PROCEDURE INFORMATION: Exam: XR Chest Exam date and time: 05/17/2024 10:53 PM Age: 83 years old Clinical indication: Other: Chest pain TECHNIQUE: Imaging protocol: Radiologic exam of the chest. Views: 2 views. COMPARISON: CT CHEST W 12/12/2023 2:09 PM FINDINGS: Lungs: Unremarkable. No consolidation. Pleural spaces: Unremarkable. No pleural effusion. No pneumothorax. Heart/Mediastinum: Unremarkable. No cardiomegaly. Bones/joints: Five sclerotic lesion in the proximal left humerus. IMPRESSION: No acute findings. Dictated and Authenticated by: Alessio Aguirre MD. Ordering:CHUN Emanuel MD
== END 2024-05-17 23:57 | disposition home or self-care (01) ==
PROVIDERS: Emergency Provider Nurse Practitioner Family; PCP Family Medicine
DX: R07.9 Chest pain, unspecified (principal); R03.0 Elevated blood-pressure reading, without diagnosis of hypertension; Z82.49 Family history of ischemic heart disease and other diseases of the circulatory system
CPT/HCPCS: 36415; 80053; 83690; 85027; 93005; 96374; 99284; 71046; 83735; 83880; 84484; 93010

== ENCOUNTER 2024-07-01 02:21 | Outpatient (CLI) | payer MEDICARE, SELFPAY ==
[2024-07-01 09:20] LABS: Abs Immature Grans 0.01 10^3/uL (0.0-0.06); Absolute Basophil Count 0.04 10^3/uL (0.0-0.2); Absolute Lymphocyte Count 2.01 10^3/uL (1.2-3.4); Absolute Monocyte Count 0.61 10^3/uL (0.1-0.8); Absolute Neutrophil Count 0.63 10^3/uL (1.2-6.7); Basophils % 1.2 %; Eosinophils % 2.9 %; HCT 43.2 % (36.0-46.0); HGB 13.7 g/dL (11.2-15.7); Immature Grans % 0.3 %; Lymphocytes % 59.1 %; MCH 28.8 pg (27.0-33.0); MCHC 31.7 % (32.0-36.0); MCV 91 fL (80-95); MPV 8.5 fL (8.0-11.0); Monocytes % 17.9 %; Neutrophils % 18.6 %; Platelet Count 264 10^3/uL (130-400); RBC 4.75 10^6/uL (3.93-5.22); RDW 13.7 % (11.7-14.6); RDW-SD 46.7 fL
[2024-07-01 09:40] LABS: ALT 27 U/L (14-59); AST 24 U/L (15-37); Albumin 3.6 g/dL (3.4-5.0); Alkaline Phosphatase 110 U/L (46-116); Anion Gap 4.4 mmol/L (3-11); BUN 23 mg/dL (7-18); Bilirubin, Total 0.29 mg/dL (0.2-1.0); CO2 31.6 mmol/L (21.0-32.0); CREATININE 1.2 mg/dL (0.55-1.02); Calcium 9.7 mg/dL (8.5-10.1); Chloride 108 mmol/L (98-107); Estimated GFR 45.48 (mL/min/1.73m2); Glucose 104 mg/dL (74-106); Potassium 4.1 mmol/L (3.5-5.1); Sodium 144 mmol/L (136-145); Total Protein 7.1 g/dL (6.4-8.2)
[2024-07-01 09:59] LABS: Diff Comment Diff Reviewed; RBC Morphology Normal
== END 2024-07-01 02:22 | disposition home or self-care (01) ==
LOC: LBO 02:21
PROVIDERS: PCP Family Medicine; Visit Provider Nurse Practitioner Adult Health
DX: D70.9 Neutropenia, unspecified (principal)
CPT/HCPCS: 36415; 80053; 85025

== ENCOUNTER 2024-07-21 11:30 | Outpatient (CLI) | payer MEDICARE, SELFPAY ==
[2024-07-21 10:32] LABS: Calculated LDL 64 mg/dL (<100); Cholesterol 161 mg/dL (<200); HDL Cholesterol 80 mg/dL (>or=50); Triglyceride 88 mg/dL (<150)
== END 2024-07-21 11:31 | disposition home or self-care (01) ==
LOC: LBO 11:30
PROVIDERS: PCP Family Medicine; Visit Provider Internal Medicine Cardiovascular Disease
DX: I25.119 Atherosclerotic heart disease of native coronary artery with unspecified angina pectoris (principal)
CPT/HCPCS: 80061

== ENCOUNTER → 2025-03-15 13:58 | Outpatient (BNVA) | payer MEDICARE, SELFPAY | PROVIDERS: PCP Family Medicine; Referring Provider Family Medicine; Visit Provider Student in an Organized Health Care Education/Training Program | DX: M70.62 Trochanteric bursitis, left hip (principal) | CPT/HCPCS: 20610; J1010 ==

== ENCOUNTER → 2025-03-17 02:21 | Outpatient (CLI) | payer MEDICARE, SELFPAY ==
--- NOTE | 2025-03-17 07:00 | DI.US_ITS ---
Exam(s) US THYROID EXAM: US THYROID CLINICAL HISTORY: Assess for change,multinodular thyroid,e04.2. TECHNIQUE: Ultrasound thyroid performed using standard protocol. COMPARISON: US US THYROID from 03/24/2024 FINDINGS: RIGHT THYROID LOBE: Measures 1.7 cm AP x 1.2 cm wide x 5.6 cm craniocaudal The right lobe contains few small benign colloid cysts and 1 solid nodule which was previously described. With respect to this nodule in the right lobe, it measures 0.9 x 0.5 x 0.7 cm Characteristics are as follows: Composition: Solid-2 points Echogenicity: Hypoechoic-2 points Shape: Wider than taller-0 points Margin: Smooth- 0 points Echogenic Foci: Contains punctate echogenic foci-3 points Total Points for this nodule: 7 ACR Ti-Rads Category: TR5 Although this is a TR 5 level nodule it can be followed as it measures slightly less than 1 cm. ISTHMUS: Normal thickness. There are no nodules in the isthmus. LEFT THYROID LOBE: Measures 2.3 cm AP x 1.2 wide x 5.0 cm craniocaudal The left lobe contains 2 solid nodules with characteristics as follows Nodule #1 . This is the more superior of the 2 left lobe nodules Size: This nodule measures 0.9 x 0.5 x 0.7 cm Characteristics are as follows: Composition: Solid-2 points Echogenicity: Hypoechoic-2 points Shape: Wider than taller in the transverse plane-0 points Margin: Smooth-0 points Echogenic Foci: Contains punctate echogenic foci-3 points Total points for this nodule: ACR Ti-Rads Category: 5 Although this is a TR 5 level nodule it can be followed as it measures slightly less than 1 cm. Nodule #2 . This is the more inferior left lobe nodule. Size: This nodule measures 1.4 x 0.9 x 1.0 cm Characteristics are as follows: Composition: Solid-2 points Echogenicity: Hypoechoic-2 points Shape: Wider than taller in the transverse plane-0 points Margin: Smooth-0 points Echogenic Foci: None-0 points Total Points for this nodule: 4 ACR Ti-Rads Category: 4 This TR 4 level nodule can be followed as it measures slightly less than 1.5 cm LYMPH NODES: There is no significant adenopathy. IMPRESSION: 1. One solid nodule in the right lobe and 2 solid nodules in the left lobe, similar in appearance to prior study of 03/24/2024. 2. Individual nodule grading is as above. None of the nodules require ultrasound-guided FNA at this time. 3. There is no significant lymphadenopathy. DATA REPOSITORY:
== END ==
LOC: DI 02:23
PROVIDERS: PCP Family Medicine; Visit Provider Otolaryngology
DX: E04.2 Nontoxic multinodular goiter (principal)
CPT/HCPCS: 76536

== ENCOUNTER → 2025-03-26 03:09 | Outpatient (CLI) | payer MEDICARE, SELFPAY ==
--- NOTE | 2025-03-26 15:18 | DI.CT_ITS ---
Exam(s) CT CHEST WO EXAM: CT CHEST WO CLINICAL HISTORY: LT LUNG NODULE R91.1 PULM NODULE 6 MM NODULE MILDRED AT [facility] [place]. TECHNIQUE: Imaging protocol: Axial computed tomography images were obtained and coronal and sagittal reformatted images were created and reviewed. Computer aided detection (CAD) was utilized. CONTRAST MATERIAL: Noncontrast COMPARISON: CT CT CHEST PE CTA from 05/31/[address] CHEST WO from 06/02/[address] CHEST W from 12/12/[address] ANGIOGRAM CORONARY ARTERIES from 06/16/2024 CT CTA CORONARY ARTERIES W from 06/16/2024 FINDINGS: Pulmonary parenchyma: No consolidation. 4 x 6 millimeter nodule in the lingula which appears stable since 2020. Calcified granuloma noted at lung left upper lobe. Interstitial changes: None. Emphysema: None. Tracheobronchial tree: No mucous plugging. No bronchiectasis . Pleura: No effusion or pneumothorax. Heart: The heart is not dilated. The coronary arteries show mild calcifications. Aorta: Thoracic aorta non-dilated. Mild atherosclerotic changes. Lymph nodes: No enlarged lymph nodes. Bones: Degenerative changes are seen. No evidence of compression fracture. Upper abdomen: Unremarkable. Soft tissues: Unremarkable. IMPRESSION: Stable 6 millimeter nodule in the lingula since 2020. No suspicious nodules. No follow-up recommended. RADIATION DOSE DELIVERED: Total DLP DATA REPOSITORY: All CT scans at this facility are submitted to the National Radiology Data Registry (NRDR) Dose Index Registry (DIR) with the [employer] ([employer]). RADIATION OPTIMIZATION: All CT scans at this facility use at least one of these dose optimization techniques: automated exposure control; mA and/or kV adjustment per patient size (includes targeted exams where dose is matched to clinical indication); or iterative reconstruction.
== END ==
LOC: DI 03:09
PROVIDERS: PCP Family Medicine; Visit Provider Family Medicine
DX: R91.1 Solitary pulmonary nodule (principal)
CPT/HCPCS: 71250